=== PATIENT | male | born 1965 | race Caucasian/White ===

== ENCOUNTER 2018-05-26 13:06 | Emergency (ER) | payer OTHER ==
[2018-05-26 13:18] VITALS: TEMP 97.8
[2018-05-26] MEDS ORDERED: DIPH,PERTUS(ACELL)TETVAC-LF 0.5 ML VIAL IM ONE (13:42)
[2018-05-26] MEDS ORDERED: SODIUM CHLORIDE 0.9% 1,000 ML IV STA (13:42)
[2018-05-26] MEDS ORDERED: ceFAZolin IN SWFI 2 GM/20 ML SYRINGE IVP ONE (13:45)
[2018-05-26] MEDS ORDERED: MORPHINE SULFATE 4 MG/ML SYRINGE IVP STA (13:53)
--- NOTE | 2018-05-26 14:02 | XR ---
EXAMINATION TYPE: XR hand complete LT DATE OF EXAM: 05/26/2018 COMPARISON: NONE HISTORY: Pain TECHNIQUE: Three views are submitted. FINDINGS: Comminuted fractures involving the distal phalanx of the fourth and fifth digits. Previous surgery arango spected with metallic density overlying the base of the fourth proximal phalanx correlate clinically for confirmation. Arthropathy of the DIP joints noted. IMPRESSION: 1. Displaced fractures involving the distal phalanx fourth and fifth digit with soft tissue injury an d suspected laceration correlate clinically.
[2018-05-26] MEDS ORDERED: ONDANSETRON 4 MG/2 ML VIAL IVP STA (14:08)
--- NOTE | 2018-05-26 14:09 | ED ---
Wound/Laceration HPI - General Chief Complaint: Wound/Laceration Stated Complaint: Rt hand lac Time Seen by Provider: 05/26/18 13:21 Source: patient, RN notes reviewed, old records reviewed Mode of arrival: ambulatory Limitations: no limitations - History of Present Illness Initial Comments: Patient is a 52-year-old male presents emergency department today with left fifth and fourth ring finger injury. Patient reports that his fingers were caught into a log splitter. Patient states that he does have some flexion of the fingers. His tetanus is not up-to-date. He rarely goes to doctors for follow-up visits. Patient states that he has slight sensation over the distal fingertips. He reports that the nail of the fourth digit has been partially avulsed. - Related Data Previous Rx's Medication Instructions Recorded Cephalexin [Keflex] 500 mg PO Q6HR #40 cap 05/26/18 HYDROcodone/APAP 5-325MG [[place] 1 tab PO Q6HR PRN 3 Days #12 tab 05/26/18 5-325] Allergies Allergy/AdvReac Type Severity Reaction Status Date / Time No Known Allergies Allergy Verified 05/26/18 14:19 Review of Systems ROS Statement: Those systems with pertinent positive or pertinent negative responses have been documented in the HPI. ROS Other: All systems not noted in ROS Statement are negative. Past Medical History Past Medical History: No Reported History History of Any Multi-Drug Resistant Organisms: None Reported Past Surgical History: Orthopedic Surgery Additional Past Surgical History / Comment(s): HAND SURGERY Past Psychological History: No Psychological Hx Reported Smoking Status: Current every day smoker Past Alcohol Use History: None Reported Past Drug Use History: Marijuana General Exam - General Exam Comments Initial Comments: Patient's 52-year-old male. Patient appears in pain. Limitations: no limitations General appearance: alert, in no apparent distress Head exam: Present: atraumatic, normocephalic, normal inspection Eye exam: Present: normal appearance, PERRL, EOMI. Absent: scleral icterus, conjunctival injection, periorbital swelling ENT exam: Present: normal exam, mucous membranes moist Neck exam: Present: normal inspection. Absent: tenderness, meningismus, lymphadenopathy Respiratory exam: Present: normal lung sounds bilaterally. Absent: respiratory distress, wheezes, rales, rhonchi, stridor Cardiovascular Exam: Present: regular rate, normal rhythm, normal heart sounds. Absent: systolic murmur, diastolic murmur, rubs, gallop, clicks GI/Abdominal exam: Present: soft, normal bowel sounds. Absent: distended, tenderness, guarding, rebound, rigid Extremities exam: Present: normal inspection, full ROM, normal capillary refill. Absent: tenderness, pedal edema, joint swelling, calf tenderness Left Forearm Wrist exam: Present: normal inspection, full ROM Hand Wrist exam: Present: tenderness, swelling, laceration, deformity. Absent: normal inspection Vascular: Present: normal capillary refill Back exam: Present: normal inspection Neurological exam: Present: alert, oriented X3, CN II-XII intact Psychiatric exam: Present: normal affect, normal mood Skin exam: Present: warm, dry, intact, normal color. Absent: rash Course Vital Signs 05/26/18 13:14 Temperature 97.8 F Pulse Rate 66 Respiratory 16 Rate Blood Pressure 154/76 O2 Sat by Pulse 95 Oximetry Medical Decision Making - Radiology Data Radiology results: report reviewed Displaced fractures involving the distal phalanx of the fourth and fifth digit with soft tissue injury and suspected laceration correlate clinically. Disposition Clinical Impression: Open fracture of finger of left hand, Open fracture of tuft of distal phalanx of finger Disposition: HOME SELF-CARE Condition: Good Instructions (If sedation given, give patient instructions): Finger Laceration (ED), Finger Fracture (ED) Additional Instructions: Patient advised to follow-up tomorrow with orthopedic. Take antibiotics and use pain medicine as prescribed. Return to emergency department if any alarming signs or symptoms occur. Prescriptions: Cephalexin [Keflex] 500 mg PO Q6HR #40 cap HYDROcodone/APAP 5-325MG [[place] 5-325] 1 tab PO Q6HR PRN 3 Days #12 tab PRN Reason: Pain Is patient prescribed a controlled substance at d/c from ED?: Yes When asked, does pt state using other controlled substances?: Yes If prescribed controlled substance>3 days was MAPS reviewed?: Prescribed <3 Days If opioid is for acute pain is fill amount 7 days or less?: Yes If Rx opioid, was Start Talking consent form obtained?: Yes Referrals: None,Stated [Primary Care Provider] - 1-2 days Satnley Vogt MD [STAFF PHYSICIAN] - 1-2 days Salo Be DO [Medical Doctor] - 1-2 days Time of Disposition: 16:06
[2018-05-26] MEDS ORDERED: LIDOCAINE 1% INJ 10MG/ML (20 ML MDV) SQ ONE (14:46)
[2018-05-26] MEDS ORDERED: ACET/COD 300 MG/30 MG STARTER PACK 6 TAB BTL PO STA (16:12)
[2018-05-26 16:20] VITALS: BP 123/83; PULSE 60; RESP 14
== END 2018-05-26 16:20 | disposition home or self-care (01) ==
LOC: EC 13:06
DX: S62.635B Displaced fracture of distal phalanx of left ring finger, initial encounter for open fracture (principal); S62.637B Displaced fracture of distal phalanx of left little finger, initial encounter for open fracture; F17.200 Nicotine dependence, unspecified, uncomplicated; W31.89XA Contact with other specified machinery, initial encounter; Y92.89 Other specified places as the place of occurrence of the external cause; Z23 Encounter for immunization
CPT/HCPCS: 99283; 96374; 96375 ×2; 96361 ×2; 90471; 73130; 90715; J2270; J2405; J0690

== ENCOUNTER 2019-02-03 10:45 | Inpatient (IN) | payer OTHER ==
[2019-03-02 08:41] LABS: Basophils # (A) 0.1 k/uL (0-0.2); Basophils % (A) 1 %; Eosinophils # (A) 0.5 k/uL (0-0.7); Eosinophils % (A) 4 %; HCT 45.7 % (39.0-53.0); HGB 15.1 gm/dL (13.0-17.5); Lymphocytes # (A) 3.2 k/uL (1.0-4.8); Lymphocytes % (A) 28 %; MCH 30.5 pg (25.0-35.0); MCHC 32.9 g/dL (31.0-37.0); MCV 92.5 fL (80.0-100.0); Mean Platelet Volume 7.1; Monocytes # (A) 1.1 k/uL (0-1.0); Monocytes % (A) 9 %; Neutrophils # (A) 6.4 k/uL (1.3-7.7); Neutrophils % (A) 56 %; Platelet Count 332 k/uL (150-450); RBC 4.94 m/uL (4.30-5.90); RDW 14.2 % (11.5-15.5); WBC 11.5 k/uL (3.8-10.6)
[2019-03-02 08:50] LABS: Potassium 4.4 mmol/L (3.5-5.1)
[2019-03-02] MEDS ORDERED: ONDANSETRON 4 MG/2 ML VIAL IVP PRN (21:10)
[2019-03-03] MEDS ORDERED: metroNIDAZOLE-NS PMX 500 MG in SALINE 1 100ML.BAG IVPB ONE (05:00)
[2019-03-03] MEDS ORDERED: HEPARIN SODIUM,PORCINE 5,000 UNIT/ML 1 ML VIAL SQ ONE (05:00)
--- NOTE | 2019-03-03 07:54 | P.GSHP ---
History of Present Illness H&P Date: 03/03/19 Chief Complaint: History of colonic perforation This is a 53-year-old male who has previous history of colonic perforation. Patient had a traumatic perforation of his colon after being involved in a crush injury. Patient presents today for reversal of colostomy. Patient reversed surgery including possible anastomotic failure and subsequent colostomy. Past Medical History Past Medical History: Hyperlipidemia Additional Past Medical History / Comment(s): crush injury to abdomen 2 months ago resulting in "ruptured colon" per pt., had surgery & was in ICU @[facility] History of Any Multi-Drug Resistant Organisms: None Reported Past Surgical History: Bowel Resection, Orthopedic Surgery Additional Past Surgical History / Comment(s): HAND SURGERY, ORIF right ankle, bowel resection w/colostomy & splenectomy 2018 Past Anesthesia/Blood Transfusion Reactions: No Reported Reaction Smoking Status: Current every day smoker - Past Family History Brother(s) Family Medical History: Cancer Additional Family Medical History / Comment(s): colon Medications and Allergies Home Medications Medication Instructions Recorded Confirmed Type Atorvastatin [Lipitor] 40 mg PO HS 01/28/19 03/02/19 History Gabapentin [Neurontin] 600 mg PO HS 01/28/19 03/02/19 History hydrOXYzine HCL [Atarax] 50 mg PO HS PRN 01/28/19 03/02/19 History Allergies Allergy/AdvReac Type Severity Reaction Status Date / Time No Known Allergies Allergy Verified 03/02/19 07:54 Surgical - Exam - General well developed, well nourished, no distress - Eyes PERRL - ENT normal pinna - Neck no masses - Respiratory normal expansion - Cardiovascular Rhythm: regular - Abdomen Colostomy in left upper quadrant Abdomen: soft, non tender Results - Labs 03/02/19 08:26 03/02/19 08:26 Abnormal Lab Results - Last 24 Hours (Table) 03/02/19 Range/Units 08:26 WBC 11.5 H (3.8-10.6) k/uL Monocytes # 1.1 H (0-1.0) k/uL Diabetes panel 03/02/19 Range/Units 08:26 Sodium 138 (137-145) mmol/L Potassium 4.4 (3.5-5.1) mmol/L Chloride 104 (98-107) mmol/L Carbon Dioxide 28 (22-30) mmol/L Pituitary panel 03/02/19 Range/Units 08:26 Sodium 138 (137-145) mmol/L Potassium 4.4 (3.5-5.1) mmol/L Chloride 104 (98-107) mmol/L Carbon Dioxide 28 (22-30) mmol/L Adrenal panel 03/02/19 Range/Units 08:26 Sodium 138 (137-145) mmol/L Potassium 4.4 (3.5-5.1) mmol/L Chloride 104 (98-107) mmol/L Carbon Dioxide 28 (22-30) mmol/L Assessment and Plan Assessment: History of colonic perforation. We'll perform reversal of colostomy.
[2019-03-03] MEDS ORDERED: LIDOCAINE 1% (10MG/ML) FOR IV START INTRADERMA ONE (08:46)
[2019-03-03] MEDS: LACTATED RINGERS 1,000 ML IV SCH ×2 (08:46→20:46)
[2019-03-03] MEDS ORDERED: DEXAMETHASONE SOD PHOSPHATE 10 MG/ML 1 ML VIAL IV ONE (08:46)
[2019-03-03] MEDS ORDERED: ALVIMOPAN 12 MG CAPSULE PO ONE (09:05)
[2019-03-03] MEDS ORDERED: MELOXICAM 7.5 MG TAB PO ONE (09:09)
[2019-03-03] MEDS ORDERED: ACETAMINOPHEN IV (For NPO) 1,000 MG in EMPTY BAG 1 BAG IVPB STA (09:18)
[2019-03-03] MEDS ORDERED: LIDOCAINE 1% INJ 10MG/ML (20 ML MDV) ONE (09:32)
[2019-03-03] MEDS ORDERED: ROCURONIUM BROMIDE 10 MG/ML 5 ML VIAL IV ONE (09:32)
[2019-03-03] MEDS ORDERED: SUCCINYLCHOLINE CHLORIDE 100 MG/5 ML SYR IV ONE (09:32)
[2019-03-03] MEDS ORDERED: fentaNYL (PF) 50 MCG/ML 2 ML AMP ONE (09:32)
[2019-03-03] MEDS ORDERED: HYDROmorphone (PF) 1 MG/ML ONE (09:32)
[2019-03-03] MEDS ORDERED: MIDAZOLAM 2 MG/2 ML VIAL ONE (09:32)
[2019-03-03] MEDS ORDERED: PROPOFOL 10 MG/ML 20 ML VIAL IV ONE (09:32)
[2019-03-03] MEDS ORDERED: NEOSTIGMINE 1 MG/ML 10 ML VIAL ONE (09:32)
[2019-03-03] MEDS ORDERED: GLYCOPYRROLATE 0.2 MG/ML 2 ML VIAL ONE (09:32)
[2019-03-03] MEDS ORDERED: ONDANSETRON 4 MG/2 ML VIAL IVP PRN (11:42)
[2019-03-03] MEDS ORDERED: LACTATED RINGERS 1,000 ML IV ONE ×2 (11:42→13:00)
[2019-03-03] MEDS: HYDROmorphone 0.5 MG/0.5 ML SYRINGE IVP PRN ×7 (12:05→22:28)
[2019-03-03] MEDS ORDERED: diphenhydrAMINE 50 MG/ML 1 ML VIAL IVP ONE (12:39)
[2019-03-03 14:13] LABS: Basophils % (A) 0 %; Eosinophils % (A) 0 %; HCT 47.2 % (39.0-53.0); HGB 15.2 gm/dL (13.0-17.5); Lymphocytes # (A) 0.7 k/uL (1.0-4.8); Lymphocytes % (A) 3 %; MCH 30.4 pg (25.0-35.0); MCHC 32.2 g/dL (31.0-37.0); MCV 94.5 fL (80.0-100.0); Monocytes # (A) 0.9 k/uL (0-1.0); Monocytes % (A) 4 %; Neutrophils # (A) 21.2 k/uL (1.3-7.7); Neutrophils % (A) 92 %; Platelet Count 352 k/uL (150-450); RBC 4.99 m/uL (4.30-5.90); RDW 14.1 % (11.5-15.5); WBC 22.9 k/uL (3.8-10.6)
[2019-03-03 14:31] LABS: African American GFR (CKD) >90 (>60 ml/min/1.73 sqM); Anion Gap 7 mmol/L; Blood Urea Nitrogen 14 mg/dL (9-20); Calcium 9.4 mg/dL (8.4-10.2); Carbon Dioxide 24 mmol/L (22-30); Chloride 105 mmol/L (98-107); Glucose 123 mg/dL (74-99); Non-African American GFR(CKD) >90 (>60 ml/min/1.73 sqM); Potassium 4.7 mmol/L (3.5-5.1); Sodium 136 mmol/L (137-145)
[2019-03-03] MEDS: PIPERACILLIN-TAZOBACTAM 3.375 GM in SODIUM CHLORIDE 0.9% 100 ML IVPB SCH ×2 (15:58→23:32)
[2019-03-03] MEDS: HEPARIN SODIUM,PORCINE 5,000 UNIT/ML 1 ML VIAL SQ SCH ×2 (15:59→23:31)
[2019-03-03] MEDS: D5-0.45% NACL WITH KCL 20MEQ/L 1,000 ML IV SCH ×2 (15:59→23:31)
[2019-03-03] MEDS: FAMOTIDINE 20 MG/2 ML VIAL IV SCH (19:26)
[2019-03-03 23:00] LABS: ALT 23 U/L (21-72); AST 27 U/L (17-59); African American GFR (CKD) >90 (>60 ml/min/1.73 sqM); Albumin 3.8 g/dL (3.5-5.0); Alkaline Phosphatase 65 U/L (38-126); Anion Gap 8 mmol/L; Blood Urea Nitrogen 11 mg/dL (9-20); Calcium 9.4 mg/dL (8.4-10.2); Carbon Dioxide 24 mmol/L (22-30); Chloride 103 mmol/L (98-107); Glucose 158 mg/dL (74-99); Non-African American GFR(CKD) >90 (>60 ml/min/1.73 sqM); Potassium 5.1 mmol/L (3.5-5.1); Sodium 135 mmol/L (137-145); Total Bilirubin 0.9 mg/dL (0.2-1.3); Total Protein 6.6 g/dL (6.3-8.2)
[2019-03-04] MEDS: HYDROmorphone 0.5 MG/0.5 ML SYRINGE IVP PRN ×3 (01:28→07:10)
[2019-03-04] MEDS: D5-0.45% NACL WITH KCL 20MEQ/L 1,000 ML IV SCH ×2 (05:33→16:53)
--- NOTE | 2019-03-04 06:51 | CONS ---
CONSULTATION DATE OF SERVICE: 03/03/2019 REASON FOR CONSULTATION: Advice regarding hyperlipidemia and multiple medical issues requested by Dr. Moralez. HISTORY OF PRESENT ILLNESS: This [age] gentleman with a past medical history of hyperlipidemia, history of crush injury, abdomen, history of bowel resection, history of nicotine dependence, being followed by Dr. Ashley in the outpatient setting, underwent a colostomy reversal, extensive lysis of adhesions by Dr. Moralez. The patient had bowel resection previously. There is no history of fever, rigors or chills. No history of headache, loss of consciousness, chest pain, palpitations, hematochezia or melena at this time. PAST MEDICAL HISTORY: Hyperlipidemia, history of crush injury, history of colonic perforation, bowel resection. MEDICATIONS: Home medications are: 1. Atarax 50 mg q.h.s. p.r.n. 2. Neurontin 600 mg q.h.s. 3. Lipitor 40 mg q.h.s. ALLERGIES: None. FAMILY HISTORY: History of colon cancer in the family. SOCIAL HISTORY: History of smoking, continued ongoing. History of THC. REVIEW OF SYSTEMS: ENT: No diminished vision. No diminished hearing. CARDIOVASCULAR: No angina or palpitations. RESPIRATIONS: No cough or hemoptysis. GI as mentioned earlier. no dysuria or hematuria. NERVOUS SYSTEM: No numbness or weakness. ALLERGY/IMMUNOLOGY: No asthma or hayfever. MUSCULOSKELETAL as mentioned earlier. HEMATOLOGY/ONCOLOGY: No history of anemia. ENDOCRINE: No history of diabetes or hypothyroidism. CONSTITUTIONAL: As mentioned earlier. DERMATOLOGY: Negative. RHEUMATOLOGY: Negative. PSYCHIATRIC: As mentioned earlier. PHYSICAL EXAMINATION: Alert and oriented times three. Pulse 59, blood pressure 130/80, respiration 16, temp 97.2, pulse ox 94% on room air. HEENT: Conjunctivae normal. NECK: No JVD. CARDIOVASCULAR: S1, S2 normal. No S3, no S4. RESPIRATORY: Breath sounds diminished in the bases. No rhonchi. No crackles. ABDOMEN: Soft. Status post surgery. LEGS are no edema. No swelling. CENTRAL NERVOUS SYSTEM: No focal deficits. LABS: WBC 20.9. The sodium is 136 and glucose 123. ASSESSMENT: 1. Status post colostomy reversal as well as extensive lysis of adhesions. 2. Increased WBC possibly reactive. 3. Hyponatremia. 4. Increased random blood sugar. 5. Hyperlipidemia. 6. History of crush injury abdomen chronic perforation surgery and bowel resection. 7. History of splenectomy. 8. History of nicotine dependence continued ongoing. 9. History of THC. RECOMMENDATIONS AND DISCUSSION: In this 53-year-old gentleman who presented with multiple complex medical issues, recommend to continue current medications, management and symptomatic treatment. DVT prophylaxis. Incentive spirometry. Recommend repeat labs. Broad-spectrum antibiotics has been given. Otherwise, resume the home medication p.o. and further recommendations to follow. The patient may be asked to follow with Dr. Ashley closely after discharge. Thank you Dr. Moralez for letting us participate in the care of this patient. MMODL / IJN: [id number] /
[2019-03-04 07:31] LABS: Basophils % (A) 0 %; Eosinophils # (A) 0.1 k/uL (0-0.7); Eosinophils % (A) 0 %; HCT 46.3 % (39.0-53.0); HGB 15.1 gm/dL (13.0-17.5); Lymphocytes # (A) 2.1 k/uL (1.0-4.8); Lymphocytes % (A) 9 %; MCH 30.6 pg (25.0-35.0); MCHC 32.6 g/dL (31.0-37.0); MCV 93.9 fL (80.0-100.0); Mean Platelet Volume 8.6; Monocytes # (A) 2.5 k/uL (0-1.0); Monocytes % (A) 11 %; Neutrophils # (A) 18.4 k/uL (1.3-7.7); Neutrophils % (A) 79 %; Platelet Count 331 k/uL (150-450); RBC 4.93 m/uL (4.30-5.90); RDW 14.1 % (11.5-15.5); WBC 23.4 k/uL (3.8-10.6)
[2019-03-04] MEDS: PIPERACILLIN-TAZOBACTAM 3.375 GM in SODIUM CHLORIDE 0.9% 100 ML IVPB SCH ×3 (09:25→23:46)
[2019-03-04] MEDS: FAMOTIDINE 20 MG/2 ML VIAL IV SCH ×2 (09:26→21:24)
[2019-03-04] MEDS: ALVIMOPAN 12 MG CAPSULE PO SCH ×2 (09:26→21:30)
[2019-03-04] MEDS: HEPARIN SODIUM,PORCINE 5,000 UNIT/ML 1 ML VIAL SQ SCH ×2 (09:26→16:53)
[2019-03-04] MEDS: KETOROLAC 30 MG/ML 1 ML VIAL IVP PRN ×2 (09:27→21:35)
[2019-03-04] MEDS: HYDROmorphone 1 MG/ML 1 ML SYRINGE IVP PRN ×4 (10:30→23:57)
--- NOTE | 2019-03-04 11:34 | P.PN ---
Subjective Progress Note Date: 03/04/19 CHIEF COMPLAINT: History of colonic perforation HISTORY OF PRESENT ILLNESS: Patient is status post reversal of colostomy. Postop day #1. Patient reports significant abdominal pain this morning. He is tolerating clear liquid diet. He denies passing flatus. Vital signs are stable. He is afebrile. PHYSICAL EXAM: VITAL SIGNS: Reviewed. GENERAL: Well-developed in no acute distress. HEENT: No sclera icterus. Extraocular movements grossly intact. Moist buccal mucosa. Head is atraumatic, normocephalic. ABDOMEN: Soft. Nondistended. Appropriate surgical tenderness. NEUROLOGIC: Alert and oriented. Cranial nerves II through XII grossly intact. ASSESSMENT: 1. History of colonic perforation, status post reversal of colostomy PLAN: -Continue clear liquid diet. Await bowel function -Pain control. Increase Dilaudid to 1 mg every 3 hours as needed. Add IV Toradol -Incentive spirometer -Activity as tolerated Nurse practitioner note has been reviewed by physician. Signing provider agrees with the documented findings, assessment, and plan of care. Objective - Vital Signs Vital signs: Vital Signs Temp 98.0 F 03/04/19 06:49 Pulse 67 03/04/19 08:45 Resp 16 03/04/19 08:45 BP 162/89 03/04/19 06:49 Pulse Ox 93 L 03/04/19 06:49 Intake & Output 03/03/19 03/04/19 03/04/19 18:59 06:59 18:59 Intake Total 2300 1800 320 Output Total 285 2900 70 Balance 2014 250 Weight 109.769 kg Intake: IV 2300 Intake, IV Titration 1600 Amount D5-0.45% NaCl with KCl 1500 20Meq/l 1,000 ml @ 125 mls/hr IV .Q8H CEHLITA Rx#: [id number] Piperacillin-Tazobactam 3 100 .375 gm In Sodium Chloride 0.9% 100 ml @ 25 mls/hr IVPB Q8HR CHELITA Rx# :[id number] Oral 200 320 Output: Urine 185 2900 70 Uretheral (Richard) 2900 Estimated Blood Loss 100 Other: Voiding Method Indwelling Catheter Indwelling Catheter Indwelling Catheter - Labs CBC & Chem 7: 03/04/19 06:53 03/03/19 22:07 Labs: Abnormal Lab Results - Last 24 Hours (Table) 03/03/19 03/03/19 03/03/19 Range/Units 13:21 13:21 22:07 WBC 22.9 H (3.8-10.6) k/uL Neutrophils # 21.2 H (1.3-7.7) k/uL Lymphocytes # 0.7 L (1.0-4.8) k/uL Monocytes # (0-1.0) k/uL Sodium 136 L 135 L (137-145) mmol/L Glucose 123 H 158 H (74-99) mg/dL 03/04/19 Range/Units 06:53 WBC 23.4 H (3.8-10.6) k/uL Neutrophils # 18.4 H (1.3-7.7) k/uL Lymphocytes # (1.0-4.8) k/uL Monocytes # 2.5 H (0-1.0) k/uL Sodium (137-145) mmol/L Glucose (74-99) mg/dL
[2019-03-04] MEDS: IPRATROPIUM-ALBUTEROL 3 ML NEB INHALATION SCH ×2 (14:58→20:08)
--- NOTE | 2019-03-04 15:17 | PN ---
PROGRESS NOTE DATE OF SERVICE: 03/04/2019 This 53-year-old gentleman who was admitted with colostomy reversal as well as extensive lysis of adhesions is being closely monitored. No chest pain. No palpitations. No fever. PHYSICAL EXAMINATION: Alert, oriented x3. Pulse 67, blood pressure 162/89, respiration 16, temperature 98 degrees, pulse ox 93% on room air. HEENT: Conjunctivae normal. NECK: No jugular venous distention. CARDIOVASCULAR SYSTEM: S1, S2 muffled. RESPIRATORY SYSTEM: Breath sounds diminished at the bases. No rhonchi. No crackles. ABDOMEN: Soft, non-tender. Status post surgery. LEGS: No edema. No swelling. NERVOUS SYSTEM: No focal deficit. LABS: WBC 23.2, hemoglobin 15.1. ASSESSMENT: 1. Status post colostomy reversal as well as extensive adhesiolysis. 2. Increased white count. 3. Hyponatremia. 4. Increased random blood sugar. 5. Hyperlipidemia. 6. History of crush injury abdomen with colonic perforation and bowel resection. 7. History of splenectomy. 8. History of nicotine dependence, continued ongoing. 9. History of tetrahydrocannabinol. RECOMMENDATIONS AND DISCUSSION: I recommend to continue current medications, continue with the monitoring, symptomatic treatment. Otherwise at this time I would recommend continuing with empiric antibiotics. DVT prophylaxis. Closely follow with Surgery. Proton pump inhibitors. Broad-spectrum IV antibiotics. Further recommendations to follow. MMODL / IJN: [id number] /
[2019-03-04] MEDS: PANTOPRAZOLE 40 MG TABLET PO SCH (16:53)
[2019-03-04] MEDS: GABAPENTIN 300 MG CAP PO SCH (21:25)
[2019-03-04] MEDS: ATORVASTATIN 40 MG TAB PO SCH (21:26)
[2019-03-05] MEDS: HEPARIN SODIUM,PORCINE 5,000 UNIT/ML 1 ML VIAL SQ SCH ×4 (00:22→23:59)
[2019-03-05] MEDS: D5-0.45% NACL WITH KCL 20MEQ/L 1,000 ML IV SCH ×4 (00:44→21:04)
[2019-03-05] MEDS: HYDROmorphone 1 MG/ML 1 ML SYRINGE IVP PRN ×4 (04:26→17:38)
[2019-03-05] MEDS: KETOROLAC 30 MG/ML 1 ML VIAL IVP PRN ×4 (05:09→23:58)
[2019-03-05] MEDS: IPRATROPIUM-ALBUTEROL 3 ML NEB INHALATION PRN (05:21)
[2019-03-05] MEDS: LACTATED RINGERS 1,000 ML IV SCH ×2 (07:02→21:04)
[2019-03-05] MEDS: IPRATROPIUM-ALBUTEROL 3 ML NEB INHALATION SCH ×4 (07:42→21:21)
[2019-03-05] MEDS: FAMOTIDINE 20 MG/2 ML VIAL IV SCH ×2 (08:29→21:04)
[2019-03-05] MEDS: PANTOPRAZOLE 40 MG TABLET PO SCH (08:29)
[2019-03-05] MEDS: PIPERACILLIN-TAZOBACTAM 3.375 GM in SODIUM CHLORIDE 0.9% 100 ML IVPB SCH ×3 (08:29→23:59)
[2019-03-05] MEDS: ALVIMOPAN 12 MG CAPSULE PO SCH (08:29)
--- NOTE | 2019-03-05 14:07 | P.PN ---
Subjective Progress Note Date: 03/05/19 CHIEF COMPLAINT: Colostomy reversal HISTORY OF PRESENT ILLNESS: The patient is a 53-year-old male status post colostomy reversal. He started to pass flatus this afternoon. No nausea or vomiting. He is eager to go home. ROS: No reports of nausea and vomiting. No fevers or chills. No new chest pa in. No productive sputum PHYSICAL EXAM: VITAL SIGNS: Reviewed CONSTITUTIONAL: Well developed and in no acute distress. EYES: Conjuctivae without sclera icterus. Extraocular movements grossly intact. HEAD, EARS, NOSE, THROAT: Moist buccal mucosa. Head is atraumatic, normocephalic. Hears conversational speech. No nasal drainage. Poor dentition. RESPIRATORY: Non-labored respirations and equal bilateral excursions. CARDIOVASCULAR: Palpable 2+ radial pulses. ABDOMEN: Soft. No peritonitis. Midline dressing colostomy site clean dry and intact. MUSCULOSKELETAL: No gross deformity of the lower extremities noted. No clubbing. No cyanosis. SKIN: Good skin turgor. Well perfused. NEUROLOGIC: Cranial nerves I through XII grossly intact. No focal or lateralizing signs. PSYCH: Appropriate affect. Alert and oriented to person, place and time. CLINICAL LABS: White blood cell count elevated over 20,000+ ASSESSMENT: 1. Status post colostomy reversal PLAN: 1. He just started passing flatus. We'll hold advancing diet this time. 2. Monitor with blood cell count with possible antibiotic adjustment Objective - Vital Signs Vital signs: Vital Signs Temp 97.3 F L 03/05/19 07:00 Pulse 65 03/05/19 11:45 Resp 16 03/05/19 11:45 BP 122/77 03/05/19 07:00 Pulse Ox 93 L 03/05/19 07:00 Intake & Output 03/04/19 03/05/19 03/05/19 18:59 06:59 18:59 Intake Total 820 475 Output Total 1670 4775 Balance -850 -4300 Intake: Intake, IV Titration 475 Amount D5-0.45% NaCl with KCl 375 20Meq/l 1,000 ml @ 125 mls/hr IV .Q8H CHELITA Rx#: [id number] Piperacillin-Tazobactam 3 100 .375 gm In Sodium Chloride 0.9% 100 ml @ 25 mls/hr IVPB Q8HR CHELITA Rx# :[id number] Oral 820 Output: Urine 5130 7673 Other: Voiding Method Indwelling Catheter Indwelling Catheter Indwelling Catheter # Voids 3 - Labs CBC & Chem 7: 03/04/19 06:53 03/03/19 22:07 Assessment and Plan (1) History of colostomy reversal Current Visit: Yes Status: Acute Code(s): Z98.890 - OTHER SPECIFIED POSTPROCEDURAL STATES SNOMED Code(s): 394503561
--- NOTE | 2019-03-05 14:49 | XR ---
EXAMINATION TYPE: XR chest 2V DATE OF EXAM: 03/05/2019 COMPARISON: NONE TECHNIQUE: PA and lateral views submitted. HISTORY: Shortness of breath FINDINGS: Heart size is mildly prominent and there is hypertrophic and degenerative change of the spine. On the lateral view there is increased density in the left lower lobe perihilar region. By basilar infiltra jose armando and mild interstitial prominence. No pneumothorax. IMPRESSION: 1. Bibasilar infiltrates and left upper lobe atelectasis. Interstitial pneumonitis or early venous co ngestion in the differential diagnosis correlate clinically.
--- NOTE | 2019-03-05 20:44 | PN ---
PROGRESS NOTE DATE OF SERVICE: 03/05/2019 This 53-year-old gentleman who was admitted after colostomy reversal is being closely monitored. No chest pain. No palpitations. No fever. The white count is elevated. The chest x-ray showed significant atelectasis. EXAM: Alert and oriented x3. The pulse is 72. Blood pressure 123/67, respiration 19, temperature 98 degrees, pulse ox 97% on room air. HEENT: Conjunctivae normal. Oral mucosa moist. NECK: No jugular venous distention. No lymph node enlargement. CARDIOVASCULAR: S1, S2. RESPIRATORY: Diminished breath sounds at the bases. A few scattered rhonchi. ABDOMEN: Soft, status post surgery. LEGS: No swelling. NERVOUS SYSTEM: No focal deficits. LABS: WBC 23.4, sodium 135. PAST MEDICAL HISTORY: Reviewed. REVIEW OF SYSTEMS: CARDIOVASCULAR SYSTEM: No angina. RESPIRATORY: As mentioned earlier. GI: As mentioned earlier. : No dysuria or retention. NERVOUS SYSTEM: No numbness or weakness. CURRENT MEDICATIONS: 1. DuoNeb q.i.d. and p.r.n. 2. Lipitor 40 mg q.h.s. 3. Pepcid 20 mg IV b.i.d. 4. Neurontin. 5. Heparin subcu b.i.d. 6. Dilaudid. 7. Zofran. 8. Protonix. 9. Zosyn IV. X-rays are reviewed personally by me. ASSESSMENT: 1. Status post colostomy reversal as well as extensive adhesion lysis. 2. Possible chronic obstructive pulmonary disease acute exacerbation with acute bronchitis. 3. Bilateral atelectasis. 4. Increased WBC. 5. Hyponatremia. 6. Increased random blood sugar. 7. Hyperlipidemia. 8. History of crush injury abdomen with chronic perforation, bowel obstruction previously. 9. History of splenectomy. 10.History of nicotine dependence, continued, ongoing. 11.History of THC. RECOMMENDATIONS AND DISCUSSION: Recommend to continue current management, continue symptomatic treatment. Will optimize bronchodilator treatment. The patient is currently on DuoNeb q.i.d. and p.r.n. I would recommend add Symbicort also. Otherwise, empiric antibiotics initiated. Continue with current medications. Repeat labs also have been ordered. We will continue to monitor. Further recommendations to follow. MMODL / IJN: [id number] /
[2019-03-05] MEDS: HYDROmorphone 0.5 MG/0.5 ML SYRINGE IVP PRN (21:03)
[2019-03-05] MEDS: GABAPENTIN 300 MG CAP PO SCH (21:04)
[2019-03-05] MEDS: ATORVASTATIN 40 MG TAB PO SCH (21:04)
[2019-03-05] MEDS: SYMBICORT 160-4.5 MCG INHALER INHALATION SCH (21:25)
[2019-03-05] MEDS ORDERED: MELATONIN 5 MG TABLET PO PRN (23:42)
[2019-03-06] MEDS: HYDROmorphone 0.5 MG/0.5 ML SYRINGE IVP PRN ×2 (03:28→06:37)
[2019-03-06] MEDS: D5-0.45% NACL WITH KCL 20MEQ/L 1,000 ML IV SCH (05:49)
[2019-03-06] MEDS: KETOROLAC 30 MG/ML 1 ML VIAL IVP PRN ×2 (06:26→12:43)
[2019-03-06] MEDS: METOCLOPRAMIDE 5 MG/ML 2 ML VIAL IVP PRN (06:37)
[2019-03-06 07:33] LABS: Basophils # (A) 0.1 k/uL (0-0.2); Basophils % (A) 0 %; Eosinophils # (A) 0.7 k/uL (0-0.7); Eosinophils % (A) 5 %; HCT 41.6 % (39.0-53.0); HGB 13.6 gm/dL (13.0-17.5); Lymphocytes # (A) 2.3 k/uL (1.0-4.8); Lymphocytes % (A) 16 %; MCH 31.1 pg (25.0-35.0); MCHC 32.6 g/dL (31.0-37.0); MCV 95.4 fL (80.0-100.0); Mean Platelet Volume 8.6; Monocytes # (A) 0.9 k/uL (0-1.0); Monocytes % (A) 6 %; Neutrophils # (A) 9.8 k/uL (1.3-7.7); Neutrophils % (A) 70 %; Platelet Count 290 k/uL (150-450); RBC 4.37 m/uL (4.30-5.90); RDW 14.1 % (11.5-15.5); WBC 13.9 k/uL (3.8-10.6)
[2019-03-06 07:40] LABS: African American GFR (CKD) >90 (>60 ml/min/1.73 sqM); Anion Gap 5 mmol/L; Blood Urea Nitrogen 5 mg/dL (9-20); Calcium 9.4 mg/dL (8.4-10.2); Carbon Dioxide 28 mmol/L (22-30); Chloride 106 mmol/L (98-107); Glucose 98 mg/dL (74-99); Non-African American GFR(CKD) >90 (>60 ml/min/1.73 sqM); Potassium 4.3 mmol/L (3.5-5.1); Sodium 139 mmol/L (137-145)
[2019-03-06] MEDS: IPRATROPIUM-ALBUTEROL 3 ML NEB INHALATION SCH ×4 (08:15→20:00)
[2019-03-06] MEDS: SYMBICORT 160-4.5 MCG INHALER INHALATION SCH ×2 (08:15→20:00)
[2019-03-06] MEDS: PANTOPRAZOLE 40 MG TABLET PO SCH (08:35)
[2019-03-06] MEDS: HYDROmorphone 1 MG/ML 1 ML SYRINGE IVP PRN ×5 (08:35→17:38)
[2019-03-06] MEDS: FAMOTIDINE 20 MG/2 ML VIAL IV SCH ×2 (08:35→21:25)
[2019-03-06] MEDS: HEPARIN SODIUM,PORCINE 5,000 UNIT/ML 1 ML VIAL SQ SCH ×3 (08:35→22:54)
[2019-03-06] MEDS: PIPERACILLIN-TAZOBACTAM 3.375 GM in SODIUM CHLORIDE 0.9% 100 ML IVPB SCH ×3 (08:40→22:54)
[2019-03-06] MEDS: ALPRAZolam 1 MG TAB PO PRN (10:06)
[2019-03-06] MEDS ORDERED: HYDROmorphone 1 MG/ML 1 ML SYRINGE IVP ONE ×4 (10:10→22:27)
--- NOTE | 2019-03-06 12:44 | XR ---
EXAMINATION TYPE: XR chest 1V portable DATE OF EXAM: 03/06/2019 HISTORY: R/O PNA. REFERENCE: Previous study dated 03/05/2019. FINDINGS: The study is quite lordotic. There appears to be air under both hemidiaphragms. The heart i s mildly enlarged. Lungs are clear. I could not exclude a small right effusion. IMPRESSION: LARGE AMOUNT OF FREE AIR UNDER BOTH HEMIDIAPHRAGMS. THIS REPORT WAS CALLED TO WALDO MARLEY ON 4 S. AT THE TIME OF REPORTING.
--- NOTE | 2019-03-06 12:46 | XR ---
EXAMINATION TYPE: Abdominal series , 2 VIEWS DATE OF EXAM ORDERED: 03/06/2019 HISTORY: abdominal distension. COMPARISON: None. FINDINGS: Lung bases are clear. Within the abdomen, the abdominal gas pattern is nonspecific with nondilated loops of large and small bowel throughout the abdomen. I do not see evidence of obstruction or free air. No unusual calcifica tions are seen. Metallic skin sutures are present on the left. IMPRESSION: NONSPECIFIC ABDOMINAL PICTURE. FOLLOW-UP CLINICALLY INDICATED WOULD BE SUGGESTED.
[2019-03-06] MEDS ORDERED: IOPAMIDOL CONTRAST (ORAL USE) VIAL PO PRN (12:57)
[2019-03-06] MEDS: IOPAMIDOL CONTRAST (ORAL USE) VIAL PO PRN ×2 (13:16→14:18)
--- NOTE | 2019-03-06 13:18 | P.PN ---
Subjective Progress Note Date: 03/06/19 CHIEF COMPLAINT: Colostomy reversal HISTORY OF PRESENT ILLNESS: The patient is a 53-year-old male status post colostomy reversal. He started to pass flatus yesterday and then he started developed increased abdominal pain this morning. Per his recollection, this morning he had severe acute onset abdominal pain. His family is at bedside. He is uncomfortable. Reports feeling more distended. ROS: No fevers or chills. No productive sputum PHYSICAL EXAM: VITAL SIGNS: Reviewed CONSTITUTIONAL: Well developed and in mild distress. EYES: Conjuctivae without sclera icterus. Extraocular movements grossly intact. HEAD, EARS, NOSE, THROAT: Moist buccal mucosa. Head is atraumatic, normocephali c. Hears conversational speech. No nasal drainage. Poor dentition. RESPIRATORY: Non-labored respirations and equal bilateral excursions. CARDIOVASCULAR: Palpable 2+ radial pulses. ABDOMEN: Has peritonitis and is distended, new from prior assessment. MUSCULOSKELETAL: No gross deformity of the lower extremities noted. No clubbing. No cyanosis. SKIN: Good skin turgor. Well perfused. NEUROLOGIC: Cranial nerves I through XII grossly intact. No focal or lateralizing signs. PSYCH: Appropriate affect. Alert and oriented to person, place and time. CLINICAL LABS: White blood cell count elevated over 23,000+ now down to 13,000+ STUDIES: Chest x-ray independently reviewed demonstrating new bilateral free air underneath his diaphragm, moderate. REPORT: Chest x-ray from yesterday confirmed bilateral atelectasis without free air ASSESSMENT: 1. Status post colostomy reversal 2. New pneumoperitoneum PLAN: 1. I personally contacted admitting provider regarding new clinical change and diagnostic studies. 2. Patient and family made aware will need surgical intervention for new pneumoperitoneum Objective - Vital Signs Vital signs: Vital Signs Temp 97.5 F L 03/06/19 07:00 Pulse 70 03/06/19 11:53 Resp 20 03/06/19 07:00 BP 169/80 03/06/19 07:00 Pulse Ox 95 03/06/19 07:00 Intake & Output 03/05/19 03/06/19 03/06/19 18:59 06:59 18:59 Intake Total 810 Output Total 1600 1850 Balance -1600 -1040 Intake: Intake, IV Titration 560 Amount D5-0.45% NaCl with KCl 560 20Meq/l 1,000 ml @ 50 mls /hr IV .Q20H [facility] Rx#: [id number] Oral 250 Output: Urine 1600 1850 Other: Voiding Method Indwelling Catheter Indwelling Catheter Indwelling Catheter # Voids 3 1 - Labs CBC & Chem 7: 03/06/19 06:55 03/06/19 06:55 Labs: Abnormal Lab Results - Last 24 Hours (Table) 03/06/19 03/06/19 Range/Units 06:55 06:55 WBC 13.9 H (3.8-10.6) k/uL Neutrophils # 9.8 H (1.3-7.7) k/uL BUN 5 L (9-20) mg/dL Assessment and Plan (1) History of colostomy reversal Current Visit: Yes Status: Acute Code(s): Z98.890 - OTHER SPECIFIED POSTPROCEDURAL STATES SNOMED Code(s): 532676897
[2019-03-06] MEDS: LACTATED RINGERS 1,000 ML IV SCH ×3 (13:19→21:25)
--- NOTE | 2019-03-06 17:01 | CT ---
EXAMINATION TYPE: CT abdomen pelvis w con DATE OF EXAM: 03/06/2019 COMPARISON: Abdominal x-ray same day. HISTORY: Abdominal pain, Recent colostomy reversal CT DLP: 2295.7 mGycm Automated exposure control for dose reduction was used. TECHNIQUE: Helical acquisition of images was performed from the lung bases through the pelvis. CONTRAST: Performed with Oral Contrast and with IV Contrast, patient injected with 100 mL of Isovue 300. FINDINGS: Lung bases demonstrate bibasilar segmental atelectasis. The heart is not enlarged. The liver and pancreas are within normal limits. The spleen is not visualized. There are bilateral ad renal nodules, right measuring 1.8 cm and largest on the left (2 are present) measuring 1.9 cm. No ca lcified gallstones. Symmetric renal enhancement without hydronephrosis. Solid upper pole left renal mass with both endoph ytic and exophytic components measures 2.8 x 2.7 cm. There are additional bilateral fluid density teto al lesions which likely represent cysts. Decompressed urinary bladder with Richard catheter in situ; in travesical air is likely iatrogenic. Coarse prostatic calcifications. There is free intraperitoneal air and free fluid. Oral contrast is present within the stomach and pro ximal jejunal loops however there is no ileal or colonic opacification. Suture material is noted at t he junction of the descending and sigmoid colon. No findings of bowel obstruction. There is gaseous d istention of small bowel loops. Aortoiliac vascular calcifications without aneurysm. Scattered mesenteric lymph nodes are likely reac tive. The abdominal wall is intact. Midline surgical mark are noted along the dermis. Nonspecific subcut aneous fat stranding at the site of left mid abdominal colostomy is likely postsurgical. No aggressive osseous lesion. IMPRESSION: 1. Postsurgical changes are noted in the abdomen. There is free intraperitoneal air and fluid, correl ation with date of surgery is recommended as this could be a normal postoperative finding or possibly sequela of anastomotic leak or perforated viscus. 2. Solid left renal mass is suspicious for malignancy. 3. Bilateral adrenal nodules are nonspecific and MRI abdomen with intravenous contrast is recommended upon resolution of acute symptoms. Findings and recommendations were called to Dr. Franck Moralez by Dr. Mica Martin at 4:55 PM on 05/07/2018.
[2019-03-06] MEDS ORDERED: ROCURONIUM BROMIDE 10 MG/ML 5 ML VIAL IV ONE (19:02)
[2019-03-06] MEDS ORDERED: NEOSTIGMINE 1 MG/ML 10 ML VIAL ONE (19:02)
[2019-03-06] MEDS ORDERED: MIDAZOLAM 2 MG/2 ML VIAL ONE (19:02)
[2019-03-06] MEDS ORDERED: GLYCOPYRROLATE 0.2 MG/ML 2 ML VIAL ONE (19:02)
[2019-03-06] MEDS ORDERED: HYDROmorphone (PF) 1 MG/ML ONE (19:02)
[2019-03-06] MEDS ORDERED: LIDOCAINE 1% INJ 10MG/ML (20 ML MDV) ONE (19:02)
[2019-03-06] MEDS ORDERED: SUCCINYLCHOLINE CHLORIDE 100 MG/5 ML SYR IV ONE (19:02)
[2019-03-06] MEDS ORDERED: fentaNYL (PF) 50 MCG/ML 2 ML AMP ONE (19:02)
[2019-03-06] MEDS ORDERED: PROPOFOL 10 MG/ML 20 ML VIAL IV ONE (19:02)
[2019-03-06] MEDS ORDERED: PHENYLEPHRINE-0.9% NACL SYG 1 MG/10 ML SYRINGE ONE (19:02)
[2019-03-06] MEDS ORDERED: KETAMINE 10 MG/ML 20 ML VIAL ONE (19:02)
[2019-03-06] MEDS ORDERED: SODIUM CHLORIDE 0.9% 500 ML 500 ML IV ONE (19:13)
[2019-03-06] MEDS ORDERED: LACTATED RINGERS 1,000 ML IV ONE ×4 (19:31→21:48)
--- NOTE | 2019-03-06 19:58 | PN ---
PROGRESS NOTE DATE OF SERVICE: 03/06/2019 This 53-year-old gentleman who was admitted after colostomy reversal, is being closely monitored. The patient has some abdominal distention today. The abdominal x-ray was ordered which showed nonspecific abdominal picture and CT scan of the abdomen was ordered by surgery which showed postsurgical changes. Solid left renal mass as well as is also suspected. The patient is being closely monitored. PAST MEDICAL HISTORY: Reviewed. REVIEW OF SYSTEMS: Cardiovascular system: No angina or palpitations, otherwise, as mentioned earlier. RESPIRATORY: As mentioned earlier. GI: As mentioned earlier. no dysuria or hematuria. CENTRAL NERVOUS SYSTEM: No numbness or weakness. CURRENT MEDICATIONS: 1. DuoNeb q.i.d. and p.r.n. 2. Xanax 1 mg. 3. Lipitor. 4. Symbicort 160/4.5 two puffs b.i.d. 5. Pepcid 20 mg IV b.i.d. 6. Neurontin. 7. Heparin 5000 subcu q.8h. 8. Dilaudid. 9. Toradol. 10.Melatonin. 11.Zofran. 12.Protonix. 13.Zosyn 3.375 IV q.8. PHYSICAL EXAMINATION: Patient is alert, oriented x3. Pulse is 108. Blood pressure 124/76, respiration 18, temperature 97.4, pulse ox 93 percent on room air. HEENT is conjunctivae normal. NECK: No JVD. CARDIOVASCULAR: S1, S2 muffled. RESPIRATIONS: Breath sounds diminished in the bases. Scattered rhonchi and crackles. ABDOMEN: Soft. Mild diffuse distention present, status post surgery. Bowel sounds diminished. No guarding. No rigidity. LEGS: No edema. No swelling. NERVOUS SYSTEM: Higher functions as mentioned earlier. Moves all 4 limbs. No focal deficits. Lymphatics: No lymph nodes palpable in the neck, axillae or groin. SKIN: No ulcer, rash, bleeding. JOINTS: No active deforming arthropathy. LAB STUDIES: WBC 13.2, hemoglobin 13.6 and BUN is 5 and cultures are negative so far. The CT scan abdomen, and abdominal x-ray noted. Chest x-ray personally reviewed by me showed evidence of bilateral atelectasis, minimal fluid overload too. ASSESSMENT: 1. Status post colostomy reversal as well as extensive adhesiolysis. 2. Postoperative abdominal distention. 3. Chronic obstructive pulmonary disease exacerbation acute bronchitis. 4. Bilateral atelectasis. 5. Increased WBC. 6. Hyponatremia. 7. Increased random blood sugar. 8. Hyperlipidemia. 9. History of crush injury abdomen with colonic perforation, bowel bowel resection previously. 10.History of splenectomy. 11.History of nicotine dependence, continued, ongoing. 12.History of THC. RECOMMENDATIONS AND DISCUSSION: Recommend to continue current medications, continue symptomatic treatment. Otherwise, I would recommend continue the bronchodilators. Incentive spirometry. Ensure oxygenation. Closely follow with surgery. Surgery is reviewing the plain x-ray abdomen, and abdominal CT scan. Otherwise, continue the rest of medications. DVT prophylaxis. Patient is on broad-spectrum IV antibiotics also. Also recommend a set of cultures. Otherwise, we will continue to monitor. Further recommendations to follow. DVT prophylaxis. Repeat labs in the morning. MMODL / IJN: [id number] / MTDD
--- NOTE | 2019-03-06 21:08 | P.PN ---
Progress Note - Text Progress Note Date: 03/06/19 The patient developed acute abdominal pain early this morning. It was a sudden change in this clinical presentation. Patient had a CAT scan which shows evidence of a large amount of pneumoperitoneum. Patient undergo exploratory laparotomy today.
--- NOTE | 2019-03-06 21:12 | P.OP ---
Date of Procedure: 03/06/19 Preoperative Diagnosis: Perforated viscus Postoperative Diagnosis: Anastomotic leak Procedure(s) Performed: Exploratory laparotomy Washout of peritoneal cavity Repair of anastomotic leak Diverting ileostomy Lysis of adhesions Anesthesia: YESENIA Surgeon: Franck Moralez Estimated Blood Loss (ml): 100 Pathology: other (Ileum) Condition: stable Disposition: PACU Description of Procedure: Patient's placed on the operating table in the supine position. He received general anesthesia. His mark removed. The subcutaneous tissues were spread. The fascial stitch was found. This was cut. The fascia was then opened. The Bookwalter this wound. The abdomen was retracted. There is a little large amount of bilious fluid. The abdomen was explored. And the colon anastomosis was visualized. The colon had a [id number] functional end-to-end staple anastomosis. There appeared to be a leak along the TA staple line. The TA staple line was then oversewn with 3-0 GI silk suture. At this point the small bowel was run. Extensive is of adhesions performed. It was decided perform an everting ileostomy. The terminal ileum was then transected with a GI stapler. And then a suitable spot for ileostomy takedown. The ileostomy was brought through the right lower quadrant. The abdomen was irrigated with 6 L of normal saline. The fascia was then closed with looped #1 PDS suture. 2 sutures used to close the fascia. The skin was closed with mark. Several openings were left for Telfa jessy. The ileostomy then matured with 3-0 GI silk suture. Patient top she will was sent to recovery in stable condition.
[2019-03-06] MEDS ORDERED: ONDANSETRON 4 MG/2 ML VIAL IVP ONE (21:20)
[2019-03-06] MEDS: ATORVASTATIN 40 MG TAB PO SCH (21:25)
[2019-03-06] MEDS: PANTOPRAZOLE 40 MG/10 ML VIAL IVP SCH (22:05)
[2019-03-06] MEDS: GABAPENTIN 300 MG CAP PO SCH (22:05)
[2019-03-07] MEDS: METOCLOPRAMIDE 5 MG/ML 2 ML VIAL IVP PRN (01:46)
[2019-03-07] MEDS: HYDROmorphone 1 MG/ML 1 ML SYRINGE IVP PRN ×8 (01:46→23:29)
[2019-03-07] MEDS: D5-0.45% NACL WITH KCL 20MEQ/L 1,000 ML IV SCH (01:46)
[2019-03-07] MEDS: KETOROLAC 30 MG/ML 1 ML VIAL IVP PRN ×4 (05:11→23:29)
[2019-03-07 06:55] LABS: HCT 46.8 % (39.0-53.0); HGB 15.1 gm/dL (13.0-17.5); MCH 30.1 pg (25.0-35.0); MCHC 32.3 g/dL (31.0-37.0); MCV 93.2 fL (80.0-100.0); Mean Platelet Volume 7.8; Platelet Count 346 k/uL (150-450); RBC 5.02 m/uL (4.30-5.90); RDW 14.2 % (11.5-15.5); WBC 20.5 k/uL (3.8-10.6)
[2019-03-07 07:05] LABS: Calcium 8.4 mg/dL (8.4-10.2); Potassium 5.2 mmol/L (3.5-5.1)
[2019-03-07 07:37] LABS: Band Neutrophils % 38 %; Eosinophils # (M) 0.21 k/uL (0-0.7); Lymphocytes # (M) 1.23 k/uL (1.0-4.8); Monocytes # (M) 1.03 k/uL (0-1.0); Neutrophils % (M) 51 %; Nucleated Red Blood Cells 0 /100 WBC (0-0); Total Cells Counted 200
[2019-03-07 07:39] LABS: Anisocytosis (M) Present; Poikilocytosis (M) Present; Toxic Granulation Present
[2019-03-07] MEDS: SYMBICORT 160-4.5 MCG INHALER INHALATION SCH ×2 (08:36→20:53)
[2019-03-07] MEDS: IPRATROPIUM-ALBUTEROL 3 ML NEB INHALATION SCH ×4 (08:36→20:53)
[2019-03-07] MEDS: HYDROmorphone 0.5 MG/0.5 ML SYRINGE IVP PRN (08:38)
[2019-03-07] MEDS: HEPARIN SODIUM,PORCINE 5,000 UNIT/ML 1 ML VIAL SQ SCH ×4 (08:42→23:31)
[2019-03-07] MEDS: FAMOTIDINE 20 MG/2 ML VIAL IV SCH (08:42)
[2019-03-07] MEDS: PIPERACILLIN-TAZOBACTAM 3.375 GM in SODIUM CHLORIDE 0.9% 100 ML IVPB SCH ×3 (08:42→23:30)
[2019-03-07] MEDS: PANTOPRAZOLE 40 MG/10 ML VIAL IVP SCH ×2 (08:42→21:02)
[2019-03-07] MEDS ORDERED: SODIUM CHLORIDE 0.9% 1,000 ML IV ONE (09:09)
[2019-03-07] MEDS: ALPRAZolam 1 MG TAB PO PRN (11:02)
[2019-03-07] MEDS: DEXTROSE 5%-0.45% NACL 1,000 ML IV SCH ×3 (11:04→23:30)
--- NOTE | 2019-03-07 11:48 | P.PN ---
Subjective Progress Note Date: 03/07/19 CHIEF COMPLAINT: History of colonic perforation HISTORY OF PRESENT ILLNESS: Patient is status post reversal of colostomy performed on 03/03/2019. Patient is also status post exploratory laparotomy, washout of peritoneal cavity, repair of anastomotic leak, lysis of adhesions, and diverting ileostomy. Postoperative day #1. Patient examined at the bedside. He reports abdominal pain is tolerable. ostomy noted with serosanguineous drainage. No stool noted. NG tube to low intermittent suction with minimal output. Richard catheter with dark urine noted. IV fluids are currently infusing at 50 mL an hour. He is nothing by mouth. WBC 20.5. Potassium 5.2. PHYSICAL EXAM: VITAL SIGNS: Reviewed. GENERAL: Well-developed in no acute distress. HEENT: No sclera icterus. Extraocular movements grossly intact. Moist buccal mucosa. Head is atraumatic, normocephalic. ABDOMEN: Soft. Distended. Appropriate surgical tenderness. Ostomy to right lower quadrant with serosanguineous drainage. NG tube to low intermittent suction with minimal output. NEUROLOGIC: Alert and oriented. Cranial nerves II through XII grossly intact. ASSESSMENT: 1. History of colonic perforation, status post reversal of colostomy 2. Status post exploratory laparotomy, washout of peritoneal cavity, repair of anastomotic leak, lysis of adhesions, and diverting ileostomy PLAN: -Nothing by mouth except ice chips -Continue NG tube to low intermittent suction -Await bowel function -Activity as tolerated -Incentive spirometer -Pain control -1 L fluid bolus 1 -Increase IV fluids to 150 mL an hour. Discontinue potassium from IV fluids secondary to mild hyperkalemia -Continue IV antibiotics. Monitor WBC. Nurse practitioner note has been reviewed by physician. Signing provider agrees with the documented findings, assessment, and plan of care. Objective - Vital Signs Vital signs: Vital Signs Temp 97.8 F 03/07/19 07:00 Pulse 90 03/07/19 08:47 Resp 17 03/07/19 07:00 BP 113/71 03/07/19 07:00 Pulse Ox 92 L 03/07/19 07:00 Intake & Output 03/06/19 03/07/19 03/07/19 18:59 06:59 18:59 Intake Total 3500 100 Output Total 500 900 Balance -500 2600 100 Intake: IV 3100 Intake, IV Titration 400 100 Amount D5-0.45% NaCl with KCl 300 100 20Meq/l 1,000 ml @ 50 mls /hr IV .Q20H [facility] Rx#: [id number] Piperacillin-Tazobactam 3 100 .375 gm In Sodium Chloride 0.9% 100 ml @ 25 mls/hr IVPB Q8HR [facility] Rx# :[id number] Output: Gastric Drainage 0 Drainage 90 Left Lower Abdomen 90 Urine 500 610 Stool 0 Estimated Blood Loss 200 Other: Voiding Method Indwelling Catheter Indwelling Catheter Indwelling Catheter # Voids 1 # Bowel Movements 0 - Labs CBC & Chem 7: 03/07/19 06:36 03/07/19 06:36 Labs: Abnormal Lab Results - Last 24 Hours (Table) 03/07/19 03/07/19 Range/Units 06:36 06:36 WBC 20.5 H (3.8-10.6) k/uL Neutrophils # (Manual) 18.20 H (1.3-7.7) k/uL Monocytes # (Manual) 1.03 H (0-1.0) k/uL Sodium 134 L (137-145) mmol/L Potassium 5.2 H (3.5-5.1) mmol/L Glucose 144 H (74-99) mg/dL
[2019-03-07 13:47] VITALS: BMI 33.7
--- NOTE | 2019-03-07 13:48 | P.PN ---
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 However his hospital course was complicated by anastomotic leak and he underwent exploratory laparotomy with repair of the leak with diverting ileostomy on the right side, also status post lysis of adhesions. Today is postop day #1. His pain is better controlled in his abdomen, he has expected postsurgical discomfort/pain. G-tube is in a Place. Vitas looks stable. Labs showing leukocytosis with the [employer]PRES[employer]IVE 20.5 K, potassium 5.2, sodium 134 and creatinine 1.1. Patient remains on IV fluids, pain medication and also patient is on Zosyn. Objective - Vital Signs Vital signs: Vital Signs Temp 97.8 F 03/07/19 07:00 Pulse 90 03/07/19 11:57 Resp 17 03/07/19 07:00 BP 113/71 03/07/19 07:00 Pulse Ox 92 L 03/07/19 07:00 Intake & Output 03/06/19 03/07/19 03/07/19 18:59 06:59 18:59 Intake Total 3500 1200 Output Total 500 900 330 Balance -500 2600 870 Intake: IV 3100 Intake, IV Titration 400 1200 Amount D5-0.45% NaCl with KCl 300 100 20Meq/l 1,000 ml @ 50 mls /hr IV .Q20H [facility] Rx#: [id number] Piperacillin-Tazobactam 3 100 100 .375 gm In Sodium Chloride 0.9% 100 ml @ 25 mls/hr IVPB Q8HR [facility] Rx# :[id number] Sodium Chloride 0.9% 1, 1000 000 ml @ 999 mls/hr IV . Q1H1M [facility] Rx#:[id number] Output: Gastric Drainage 0 Drainage 90 30 Left Lower Abdomen 90 30 Urine 500 610 300 Stool 0 Estimated Blood Loss 200 Other: Voiding Method Indwelling Catheter Indwelling Catheter Indwelling Catheter # Voids 1 # Bowel Movements 0 - Exam GENERAL: The patient is alert and oriented x3, not in any acute distress. Well developed, well nourished. HEENT: Pupils are round and equally reacting to light. EOMI. No scleral icterus. No conjunctival pallor. Normocephalic, atraumatic. No pharyngeal erythema. No thyromegaly. CARDIOVASCULAR: S1 and S2 present. No murmurs, rubs, or gallops. PULMONARY: Chest is clear to auscultation, no wheezing or crackles. -ABDOMEN: Soft, nontender, nondistended, normoactive bowel sounds. No palpable organomegaly. Right colostomy with mild liquid stool in the colostomy back MUSCULOSKELETAL: No joint swelling or deformity. EXTREMITIES: No cyanosis, clubbing, or pedal edema. NEUROLOGICAL: Gross neurological examination did not reveal any focal deficits. SKIN: No rashes. no petechiae. - Labs CBC & Chem 7: 03/07/19 06:36 03/07/19 06:36 Labs: Abnormal Lab Results - Last 24 Hours (Table) 03/07/19 03/07/19 Range/Units 06:36 06:36 WBC 20.5 H (3.8-10.6) k/uL Neutrophils # (Manual) 18.20 H (1.3-7.7) k/uL Monocytes # (Manual) 1.03 H (0-1.0) k/uL Sodium 134 L (137-145) mmol/L Potassium 5.2 H (3.5-5.1) mmol/L Glucose 144 H (74-99) mg/dL Assessment and Plan Assessment: -Recent history of bowel perforation status post colostomy and splenectomy on 11/2018, status post reversal of colostomy on 03/03/2019, however his hospital course is complicated by leak and an anastomosis, is status post second exploratory laparotomy with repair of the leak and diverting right ileostomy -Chronic obstructive pulmonary disease, not in acute exacerbation -Bilateral atelectasis -Leukocytosis and -Mild hypernatremia -Hyperlipidemia -Nicotine dependence Plan: This is a pleasant 53 years old male who presents with reversal of colostomy, completed by leaking anastomosis status post anastomoses repair. Continue with pain management. Continue with antibiotics. Follow-up labs. Labs and medication were reviewed.. Continue same treatment. Continue with symptomatic treatment. Resume home medication. Monitor lytes and vitals. DVT and GI prophylaxis. Further recommendations of the clinical course of the patient DVT prophylaxis: Subcutaneous heparin GI Prophylaxis: Protonix PT/OT: Pending Prognosis is guarded Thank you for consulting us
[2019-03-07 20:27] LABS: Amorphous Sediment,Urine Rare /hpf; Appearance,Urine Turbid (Clear); Bilirubin,Urine Negative (Negative); Blood,Urine Small (Negative); Color,Urine Yellow; Glucose,Urine (UA) Negative (Negative); Ketones,Urine Negative (Negative); Leukocyte Esterase,Urine Negative (Negative); Mucus,Urine Rare /hpf; Nitrite,Urine Negative (Negative); PH, Urine 5.5 (5.0-8.0); Protein,Urine 1+ (Negative); RBC,Urine 27 /hpf (0-5); Specific Gravity,Urine 1.035 (1.001-1.035); Squamous Epithelial Cell,Urine <1 /hpf (0-4); Urobilinogen,Urine <2.0 mg/dL (<2.0); WBC,Urine 3 /hpf (0-5)
[2019-03-07] MEDS: ATORVASTATIN 40 MG TAB PO SCH (20:55)
[2019-03-07] MEDS: LACTATED RINGERS 1,000 ML IV SCH (20:55)
[2019-03-07] MEDS: GABAPENTIN 300 MG CAP PO SCH (20:55)
[2019-03-08] MEDS: HYDROmorphone 1 MG/ML 1 ML SYRINGE IVP PRN ×4 (02:24→22:48)
[2019-03-08] MEDS: HEPARIN SODIUM,PORCINE 5,000 UNIT/ML 1 ML VIAL SQ SCH ×2 (07:34→16:46)
[2019-03-08] MEDS: PANTOPRAZOLE 40 MG/10 ML VIAL IVP SCH ×2 (07:34→21:09)
[2019-03-08] MEDS: PIPERACILLIN-TAZOBACTAM 3.375 GM in SODIUM CHLORIDE 0.9% 100 ML IVPB SCH ×3 (07:34→23:59)
[2019-03-08 07:48] LABS: African American GFR (CKD) >90 (>60 ml/min/1.73 sqM); Anion Gap 7 mmol/L; Blood Urea Nitrogen 19 mg/dL (9-20); Carbon Dioxide 25 mmol/L (22-30); Chloride 103 mmol/L (98-107); Glucose 95 mg/dL (74-99); Non-African American GFR(CKD) >90 (>60 ml/min/1.73 sqM); Potassium 4.9 mmol/L (3.5-5.1); Sodium 135 mmol/L (137-145)
[2019-03-08 07:49] LABS: Calcium 8.4 mg/dL (8.4-10.2)
[2019-03-08 07:50] LABS: Basophils % (A) 0 %; Eosinophils # (A) 0.4 k/uL (0-0.7); Eosinophils % (A) 1 %; HCT 38.5 % (39.0-53.0); HGB 12.4 gm/dL (13.0-17.5); Lymphocytes # (A) 0.7 k/uL (1.0-4.8); Lymphocytes % (A) 3 %; MCH 30.6 pg (25.0-35.0); MCHC 32.2 g/dL (31.0-37.0); MCV 95.2 fL (80.0-100.0); Mean Platelet Volume 9.6; Monocytes # (A) 1.2 k/uL (0-1.0); Monocytes % (A) 4 %; Neutrophils # (A) 24.5 k/uL (1.3-7.7); Neutrophils % (A) 91 %; Platelet Count 295 k/uL (150-450); RBC 4.05 m/uL (4.30-5.90); RDW 14.2 % (11.5-15.5); WBC 26.9 k/uL (3.8-10.6)
[2019-03-08] MEDS: DEXTROSE 5%-0.45% NACL 1,000 ML IV SCH ×2 (08:00→15:46)
[2019-03-08] MEDS: HYDROmorphone 0.5 MG/0.5 ML SYRINGE IVP PRN ×2 (08:00→21:08)
[2019-03-08] MEDS: IPRATROPIUM-ALBUTEROL 3 ML NEB INHALATION SCH ×4 (08:18→21:10)
[2019-03-08] MEDS: SYMBICORT 160-4.5 MCG INHALER INHALATION SCH ×2 (08:18→21:10)
--- NOTE | 2019-03-08 08:55 | P.PN ---
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 However his hospital course was complicated by anastomotic leak and he underwent exploratory laparotomy with repair of the leak with diverting ileostomy on the right side, also status post lysis of adhesions. Today is postop day #1. His pain is better controlled in his abdomen, he has expected postsurgical discomfort/pain. G-tube is in a Place. Vitas looks stable. Labs showing leukocytosis with the SOFA BACK UPHOLSTERER 20.5 K, potassium 5.2, sodium 134 and creatinine 1.1. Patient remains on IV fluids, pain medication and also patient is on Zosyn. 03/08/2019 Patient today was complaining of from lower abdominal pain that responded partially to Dilaudid associated with nausea after opioid. His colostomy back have small amount of stool in it. Patient denies chest pain, dyspnea or dizziness however there is pink alert urine in his Richard catheter. With UA show ing urine RBC is 27. Other than that patient vitals showing patient is been afebrile since yesterday, last time he had fever was 03/06/2019 at 10 Fahrenheit. He has worsening leukocytosis today at 26.9. BMP looks his stable with mild hyponatremia at 135, potassium 4.9, creatinine normal 0.8. Patient currently remains on Zosyn. Objective - Vital Signs Vital signs: Vital Signs Temp 98.5 F 03/08/19 02:54 Pulse 95 03/08/19 08:31 Resp 19 03/08/19 02:54 BP 129/79 03/08/19 02:54 Pulse Ox 89 L 03/08/19 02:54 Intake & Output 03/07/19 03/08/19 03/08/19 18:59 06:59 18:59 Intake Total 3050 1850 Output Total 430 1565 Balance 2620 285 Weight 109.769 kg Intake: Intake, IV Titration 3050 1850 Amount D5-0.45% NaCl with KCl 100 20Meq/l 1,000 ml @ 50 mls /hr IV .Q20H [facility] Rx#: [id number] Dextrose 5%-0.45% NaCl 1, 750 1650 000 ml @ 150 mls/hr IV . Q6H40M [facility] Rx#:[id number] Piperacillin-Tazobactam 3 200 200 .375 gm In Sodium Chloride 0.9% 100 ml @ 25 mls/hr IVPB Q8HR [facility] Rx# :[id number] Sodium Chloride 0.9% 1, 2000 000 ml @ 999 mls/hr IV . Q1H1M [facility] Rx#:[id number] Output: Gastric Drainage 130 Drainage 30 110 Left Lower Abdomen 30 110 Urine 300 1225 Stool 100 100 Other: Voiding Method Indwelling Catheter Indwelling Catheter # Voids 1 # Bowel Movements 1 - Exam GENERAL: The patient is alert and oriented x3, not in any acute distress. Well developed, well nourished. HEENT: Pupils are round and equally reacting to light. EOMI. No scleral icterus. No conjunctival pallor. Normocephalic, atraumatic. No pharyngeal erythema. No thyromegaly. CARDIOVASCULAR: S1 and S2 present. No murmurs, rubs, or gallops. PULMONARY: Chest is clear to auscultation, no wheezing or crackles. -ABDOMEN: Soft, nontender, nondistended, normoactive bowel sounds. No palpable organomegaly. Right colostomy with semi-formed dark stool in the colostomy back. Richard catheter is in place MUSCULOSKELETAL: No joint swelling or deformity. EXTREMITIES: No cyanosis, clubbing, or pedal edema. NEUROLOGICAL: Gross neurological examination did not reveal any focal deficits. SKIN: No rashes. no petechiae. - Labs CBC & Chem 7: 03/08/19 06:43 03/08/19 06:43 Labs: Abnormal Lab Results - Last 24 Hours (Table) 03/07/19 03/08/19 03/08/19 Range/Units 19:50 06:43 06:43 WBC 26.9 H (3.8-10.6) k/uL RBC 4.05 L (4.30-5.90) m/uL Hgb 12.4 L (13.0-17.5) gm/dL Hct 38.5 L (39.0-53.0) % Neutrophils # 24.5 H (1.3-7.7) k/uL Lymphocytes # 0.7 L (1.0-4.8) k/uL Monocytes # 1.2 H (0-1.0) k/uL Sodium 135 L (137-145) mmol/L Urine Protein 1+ H (Negative) Urine Blood Small H (Negative) Urine RBC 27 H (0-5) /hpf Amorphous Sediment Rare H (None) /hpf Urine Mucus Rare H (None) /hpf Microbiology - Last 24 Hours (Table) 03/06/19 18:38 Blood Culture - Preliminary Blood No Growth after 24 hours Assessment and Plan Assessment: -Recent history of bowel perforation status post colostomy and splenectomy on 11/2018, status post reversal of colostomy on 03/03/2019, however his hospital course is complicated by leak and an anastomosis, is status post second exploratory laparotomy with repair of the leak and diverting right ileostomy -Mild hematuria, recheck urinalysis and urine culture -Systemic inflammatory response with leukocytosis and fever, possible sepsis. -Chronic obstructive pulmonary disease, not in acute exacerbation -Bilateral atelectasis -Mild hyponatremia -Hyperlipidemia -Nicotine dependence Plan: This is a pleasant 53 years old male who presents with reversal of colostomy, completed by leaking anastomosis status post anastomoses repair. Continue with pain management. Continue with antibiotics. consult ID team. Follow-up labs. Labs and medication were reviewed.. Continue same treatment. Continue with symptomatic treatment. Resume home medication. Monitor lytes and vitals. DVT and GI prophylaxis. Further recommendations of the clinical course of the patient DVT prophylaxis: Subcutaneous heparin GI Prophylaxis: Protonix PT/OT: Pending Prognosis is guarded Thank you for consulting us
[2019-03-08 12:02] LABS: Appearance,Urine Turbid (Clear); Bacteria,Urine Rare /hpf; Bilirubin,Urine Negative (Negative); Blood,Urine Moderate (Negative); Color,Urine Yellow; Glucose,Urine (UA) Negative (Negative); Ketones,Urine Negative (Negative); Leukocyte Esterase,Urine Negative (Negative); Mucus,Urine Many /hpf; Nitrite,Urine Negative (Negative); PH, Urine 5.5 (5.0-8.0); Protein,Urine 1+ (Negative); RBC,Urine 127 /hpf (0-5); Specific Gravity,Urine 1.029 (1.001-1.035); Squamous Epithelial Cell,Urine 1 /hpf (0-4); Uric Acid Crystals,Urine Occasional /hpf; Urobilinogen,Urine <2.0 mg/dL (<2.0); WBC,Urine 28 /hpf (0-5)
--- NOTE | 2019-03-08 12:57 | CDI ---
Documentation Clarification Form Date: 03/08/2019 12:50:11 PM From: Cleopatra Novoa CCS, CCDS Admit Date: 03/03/2019 7:50:00 AM Patient Name: Yevgeniy Monson Visit Number: [id number] Discharge Date: ATTENTION: The Clinical Documentation Specialists (CDI) and [facility] Coding Staff appreciate your assistance in clarifying documentation. Please respond to the clarification below the line at the bottom and electronically sign. The CDI & [facility] Coding staff will review the response and follow-up if needed. Please note: Queries are made part of the Legal Health Record. If you have any questions, please contact the author of this message via ITS. Dr. Franck Moralez: Patient was admitted after reversal of colostomy, subsequently developed an anastomotic leak requiring repair & diverting ileostomy. Patients Admitting Diagnosis: Previous perforated colon requiring colostomy, reverse. Post-Operative Diagnosis: Postop developed anastomotic leak requiring exploratory laparotomy, washout of peritoneal cavity, repair of anastomotic leak, lysis of adhesions & diverting ileostomy. Procedure performed: As above. History/Risk Factors: Previous crush injury to abdomen resulting in a ruptured colon & colostomy; Hyperlipidemia, Smoker, Splenectomy, smoker. Clinical Indicators: Presented for reversal of colostomy, developed anastomotic leak requiring ileostomy. Treatment: Surgery as above, IV Dilaudid, IV Zofran, IV Cefazolin, Heparin sq, IV Flagyl, IV Decadron, IV Tylenol, IV Reglan, IV Toradol, INH Albuterol. In order to accurately reflect this patients severity of illness, please clarify if the anastomic leak is the result of the surgical procedure? ____ Yes ____ No Other, please specify Unable to determine (Last Revision: June 2017) Unable to determine MTDD
--- NOTE | 2019-03-08 14:18 | P.PN ---
Subjective Progress Note Date: 03/08/19 CHIEF COMPLAINT: History of colonic perforation HISTORY OF PRESENT ILLNESS: Patient is status post reversal of colostomy performed on 03/03/2019. Patient is also status post exploratory laparotomy, washout of peritoneal cavity, repair of anastomotic leak, lysis of adhesions, and diverting ileostomy. Postoperative day #2. Patient examined at the bedside. He reports abdominal pain is tolerable. Ostomy with brown liquid stool noted. NG tube to low intermittent suction. WBC 26.9. Hemoglobin 12.4. PHYSICAL EXAM: VITAL SIGNS: Reviewed. GENERAL: Well-developed in no acute distress. HEENT: No sclera icterus. Extraocular movements grossly intact. Moist buccal mucosa. Head is atraumatic, normocephalic. ABDOMEN: Soft. Distended. Appropriate surgical tenderness. Ostomy to right lower quadrant with brown liquid stool. NG tube to low intermittent suction with minimal output. NEUROLOGIC: Alert and oriented. Cranial nerves II through XII grossly intact. ASSESSMENT: 1. History of colonic perforation, status post reversal of colostomy 2. Status post exploratory laparotomy, washout of peritoneal cavity, repair of anastomotic leak, lysis of adhesions, and diverting ileostomy PLAN: -Discontinue NG tube -Begin clear liquid diet -Discontinue Richard catheter -Decrease IV fluids to 100 mL an hour -Increase activity as tolerated. Consult PT/OT -Incentive spirometer encouraged -Continue IV antibiotics. Monitor WBC. Infectious disease on consult. Nurse practitioner note has been reviewed by physician. Signing provider agrees with the documented findings, assessment, and plan of care. Objective - Vital Signs Vital signs: Vital Signs Temp 99.5 F 03/08/19 07:49 Pulse 92 03/08/19 12:17 Resp 18 03/08/19 07:49 BP 143/67 03/08/19 07:49 Pulse Ox 94 L 03/08/19 07:49 Intake & Output 03/07/19 03/08/19 03/08/19 18:59 06:59 18:59 Intake Total 3050 1850 Output Total 430 1565 420 Balance 2620 285 -420 Weight 109.769 kg Intake: Intake, IV Titration 3050 1850 Amount D5-0.45% NaCl with KCl 100 20Meq/l 1,000 ml @ 50 mls /hr IV .Q20H [facility] Rx#: [id number] Dextrose 5%-0.45% NaCl 1, 750 1650 000 ml @ 150 mls/hr IV . Q6H40M [facility] Rx#:[id number] Piperacillin-Tazobactam 3 200 200 .375 gm In Sodium Chloride 0.9% 100 ml @ 25 mls/hr IVPB Q8HR [facility] Rx# :[id number] Sodium Chloride 0.9% 1, 2000 000 ml @ 999 mls/hr IV . Q1H1M [facility] Rx#:[id number] Output: Gastric Drainage 130 Drainage 30 110 20 Left Lower Abdomen 30 110 20 Urine 300 1225 400 Stool 100 100 Other: Voiding Method Indwelling Catheter Indwelling Catheter Indwelling Catheter # Voids 1 # Bowel Movements 1 - Labs CBC & Chem 7: 03/08/19 06:43 03/08/19 06:43 Labs: Abnormal Lab Results - Last 24 Hours (Table) 03/07/19 03/08/19 03/08/19 Range/Units 19:50 06:43 06:43 WBC 26.9 H (3.8-10.6) k/uL RBC 4.05 L (4.30-5.90) m/uL Hgb 12.4 L (13.0-17.5) gm/dL Hct 38.5 L (39.0-53.0) % Neutrophils # 24.5 H (1.3-7.7) k/uL Lymphocytes # 0.7 L (1.0-4.8) k/uL Monocytes # 1.2 H (0-1.0) k/uL Sodium 135 L (137-145) mmol/L Urine Protein 1+ H (Negative) Urine Blood Small H (Negative) Urine RBC 27 H (0-5) /hpf Urine WBC (0-5) /hpf Uric Acid Crystals (None) /hpf Amorphous Sediment Rare H (None) /hpf Urine Bacteria (None) /hpf Urine Mucus Rare H (None) /hpf 03/08/19 Range/Units 11:15 WBC (3.8-10.6) k/uL RBC (4.30-5.90) m/uL Hgb (13.0-17.5) gm/dL Hct (39.0-53.0) % Neutrophils # (1.3-7.7) k/uL Lymphocytes # (1.0-4.8) k/uL Monocytes # (0-1.0) k/uL Sodium (137-145) mmol/L Urine Protein 1+ H (Negative) Urine Blood Moderate H (Negative) Urine RBC 127 H (0-5) /hpf Urine WBC 28 H (0-5) /hpf Uric Acid Crystals Occasional H (None) /hpf Amorphous Sediment (None) /hpf Urine Bacteria Rare H (None) /hpf Urine Mucus Many H (None) /hpf Microbiology - Last 24 Hours (Table) 03/06/19 18:38 Blood Culture - Preliminary Blood No Growth after 24 hours
[2019-03-08] MEDS: HYDROcodone/APAP 7.5-325MG 1 EACH TAB PO PRN ×2 (14:46→19:45)
[2019-03-08] MEDS: ALPRAZolam 1 MG TAB PO PRN (15:08)
[2019-03-08] MEDS: ACETAMINOPHEN TAB 325 MG TAB PO PRN (21:08)
[2019-03-08] MEDS: ATORVASTATIN 40 MG TAB PO SCH (21:08)
[2019-03-08] MEDS: GABAPENTIN 300 MG CAP PO SCH (21:08)
[2019-03-08] MEDS: LACTATED RINGERS 1,000 ML IV SCH (21:52)
[2019-03-08] MEDS ORDERED: IBUPROFEN 600 MG TAB PO STA (22:10)
[2019-03-08] MEDS: IPRATROPIUM-ALBUTEROL 3 ML NEB INHALATION PRN (22:20)
[2019-03-09] MEDS: DEXTROSE 5%-0.45% NACL 1,000 ML IV SCH ×3 (00:42→17:49)
[2019-03-09] MEDS: HYDROmorphone 1 MG/ML 1 ML SYRINGE IVP PRN ×2 (01:29→20:10)
[2019-03-09 07:20] LABS: Basophils % (A) 0 %; Eosinophils # (A) 0.6 k/uL (0-0.7); Eosinophils % (A) 2 %; HCT 36.2 % (39.0-53.0); HGB 11.9 gm/dL (13.0-17.5); Lymphocytes # (A) 0.8 k/uL (1.0-4.8); Lymphocytes % (A) 3 %; MCH 30.8 pg (25.0-35.0); MCHC 32.8 g/dL (31.0-37.0); MCV 93.8 fL (80.0-100.0); Mean Platelet Volume 9.2; Monocytes # (A) 1.3 k/uL (0-1.0); Monocytes % (A) 5 %; Neutrophils # (A) 24.3 k/uL (1.3-7.7); Neutrophils % (A) 89 %; Platelet Count 288 k/uL (150-450); RBC 3.85 m/uL (4.30-5.90); RDW 14.4 % (11.5-15.5); WBC 27.3 k/uL (3.8-10.6)
[2019-03-09 07:27] LABS: African American GFR (CKD) >90 (>60 ml/min/1.73 sqM); Anion Gap 3 mmol/L; Blood Urea Nitrogen 14 mg/dL (9-20); Calcium 8.4 mg/dL (8.4-10.2); Carbon Dioxide 28 mmol/L (22-30); Chloride 104 mmol/L (98-107); Glucose 94 mg/dL (74-99); Non-African American GFR(CKD) >90 (>60 ml/min/1.73 sqM); Potassium 4.9 mmol/L (3.5-5.1); Sodium 135 mmol/L (137-145)
[2019-03-09] MEDS: HYDROcodone/APAP 7.5-325MG 1 EACH TAB PO PRN ×4 (09:19→18:09)
[2019-03-09] MEDS: SYMBICORT 160-4.5 MCG INHALER INHALATION SCH ×2 (09:28→20:55)
[2019-03-09] MEDS: IPRATROPIUM-ALBUTEROL 3 ML NEB INHALATION SCH ×4 (09:28→20:55)
[2019-03-09] MEDS: PIPERACILLIN-TAZOBACTAM 3.375 GM in SODIUM CHLORIDE 0.9% 100 ML IVPB SCH (09:29)
[2019-03-09] MEDS: HEPARIN SODIUM,PORCINE 5,000 UNIT/ML 1 ML VIAL SQ SCH ×3 (09:30→17:58)
[2019-03-09] MEDS: PANTOPRAZOLE 40 MG/10 ML VIAL IVP SCH ×2 (09:30→20:52)
--- NOTE | 2019-03-09 09:42 | P.CONS ---
History of Present Illness - Reason for Consult Consult date: 03/08/19 leukocytosis post bowel leak Requesting physician: Franck Moralez - Chief Complaint abdominal pain post surgery x few days - History of Present Illness Patient is a 53-year male with a past medical history for colonic perforation requiring diverting colostomy the patient was electively admitted to the hospital on March 03, 2019 for reversal of his colostomy, post surgery the patient did have a abdominal pain a CT of abdominal pelvis was done on March 06, 2019 we did shows free intraperitoneal air and fluid, patient was taken back to the OR on 03/06/2019 patient is status post exploratory laparotomy he was noticed to have evidence of perforated viscus with anastomosis leak status post repair of anastomotic leak and diverting ileostomy and lysis of adhesion, since surgery the patient did have low-grade fever 100 on 03/06/2019 but no fever since then, however patient noticed to have worsening of his white count since his surgery which was 20,000 on yesterday and is up to 26.9 today that prompted this infectious disease consultation the patient has been on Zosyn since his surgery, the patient at the time my evaluation today he denies having any worsening abdominal pain however his abdominal pain has improved but denies having any nausea no vomiting denies having any chest pain shortness of breath or cough no diarrhea patient main symptom has been urinary burning after discontinuation of his Richard catheter. Review of Systems CONSTITUTIONAL: Positive for weakness. Denies fever EYES: No complaint. ENT:No complaint. RESPIRATORY: No complaint. CARDIOVASCULAR: No complaint. GENITOURINARY: As per history of present illness. GASTROINTESTINAL: As per history of present illness. MUSCULOSKELETAL: No complaint. INTEGUMENTARY: No complaint. PSYCHOLOGICAL: No complaint. ENDOCRINE: No complaint. NEUROLOGIC: No complaint. Past Medical History Past Medical History: Hyperlipidemia Additional Past Medical History / Comment(s): crush injury to abdomen 2 months ago resulting in "ruptured colon" per pt., had surgery & was in [facility] History of Any Multi-Drug Resistant Organisms: None Reported Past Surgical History: Bowel Resection, Orthopedic Surgery Additional Past Surgical History / Comment(s): HAND SURGERY, ORIF right ankle, bowel resection w/colostomy & splenectomy 2018 Past Anesthesia/Blood Transfusion Reactions: No Reported Reaction Past Psychological History: No Psychological Hx Reported Smoking Status: Current every day smoker Past Alcohol Use History: None Reported Additional Past Alcohol Use History / Comment(s): 1-2ppd down to 8 cigs/day since teens Past Drug Use History: Marijuana Additional Drug Use History / Comment(s): 6-8 times per week - Past Family History Brother(s) Family Medical History: Cancer Additional Family Medical History / Comment(s): colon Medications and Allergies Home Medications Medication Instructions Recorded Confirmed Type Atorvastatin [Lipitor] 40 mg PO HS 01/28/19 03/03/19 History Gabapentin [Neurontin] 600 mg PO HS 01/28/19 03/03/19 History hydrOXYzine HCL [Atarax] 50 mg PO HS PRN 01/28/19 03/03/19 History Allergies Allergy/AdvReac Type Severity Reaction Status Date / Time No Known Allergies Allergy Verified 03/02/19 07:54 Physical Exam Vitals: Vital Signs Temp Pulse Pulse Resp BP BP Pulse Ox 03/08/19 08:31 95 03/08/19 08:18 94 03/08/19 07:49 99.5 F 104 H 18 143/67 94 L 03/08/19 07:25 18 03/08/19 02:54 98.5 F 97 19 129/79 89 L 03/07/19 21:05 89 03/07/19 20:53 89 98 03/07/19 20:16 98.1 F 88 19 120/80 95 03/07/19 16:00 16 03/07/19 13:20 97.3 F L 86 16 103/66 95 03/07/19 11:57 90 03/07/19 11:44 88 Intake and Output 03/07/19 03/08/19 03/08/19 22:59 06:59 14:59 Intake Total 2250 1450 Output Total 330 1335 220 Balance 1920 115 -220 Intake: Intake, IV Titration 2250 1450 Amount Dextrose 5%-0.45% NaCl 1, 1050 1350 000 ml @ 150 mls/hr IV . Q6H40M [facility] Rx#:[id number] Piperacillin-Tazobactam 3 200 100 .375 gm In Sodium Chloride 0.9% 100 ml @ 25 mls/hr IVPB Q8HR [facility] Rx# :[id number] Sodium Chloride 0.9% 1, 1000 000 ml @ 999 mls/hr IV . Q1H1M [facility] Rx#:[id number] Output: Gastric Drainage 130 Drainage 30 80 20 Left Lower Abdomen 30 80 20 Urine 200 1025 200 Stool 100 100 Other: Voiding Method Indwelling Catheter Indwelling Catheter # Voids 1 # Bowel Movements 1 GENERAL DESCRIPTION: Middle-aged male lying in bed, no distress. No tachypnea or accessory muscle of respiration use. HEENT: Shows Pallor , no scleral icterus. Oral mucous membrane is dry. No pharyngeal erythema or thrush NECK: Trachea central, no thyromegaly. LUNGS: Unlabored breathing. Clear to auscultation anteriorly. No wheeze or crackle. HEART: S1, S2, regular rate and rhythm. No loud murmur ABDOMEN: Soft, mild distention and minimal tenderness , no guarding or rigidity, no organomegaly EXTREMITIES: No edema of feet. SKIN: No rash, no masses palpable. NEUROLOGICAL: The patient is awake, alert, oriented x3, mood and affect normal. Results CBC & Chem 7: 03/09/19 07:01 03/09/19 07:01 Labs: Abnormal Lab Results - Last 24 Hours (Table) 03/07/19 03/08/19 03/08/19 Range/Units 19:50 06:43 06:43 WBC 26.9 H (3.8-10.6) k/uL RBC 4.05 L (4.30-5.90) m/uL Hgb 12.4 L (13.0-17.5) gm/dL Hct 38.5 L (39.0-53.0) % Neutrophils # 24.5 H (1.3-7.7) k/uL Lymphocytes # 0.7 L (1.0-4.8) k/uL Monocytes # 1.2 H (0-1.0) k/uL Sodium 135 L (137-145) mmol/L Urine Protein 1+ H (Negative) Urine Blood Small H (Negative) Urine RBC 27 H (0-5) /hpf Amorphous Sediment Rare H (None) /hpf Urine Mucus Rare H (None) /hpf Microbiology - Last 24 Hours (Table) 03/06/19 18:38 Blood Culture - Preliminary Blood No Growth after 24 hours Assessment and Plan Assessment: -patient with leukocytosis in this patient who is status post laparotomy for anastomosis leak in this patient who recently did have a reversal of his colostomy now status post diverting ileostomy and repair of the anastomosis leak source is likely abdominal and will likely need to cover for enteric gram- negative both aerobes and anaerobes in view of no fever and the patient symptoms improving recommend to monitor closely while on Zosyn Plan: 1-Zosyn 3.375 g every 8 hours to continue for now 2-if the patient spiked any fever or any worsening white count blood culture will be did may need to repeat a CT and adjust antibiotic further We will follow on clinical condition and cultures to further adjust medication if needed Thank you for this consultation will follow this patient along with you Time with Patient: Greater than 30
--- NOTE | 2019-03-09 09:46 | P.PN ---
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 However his hospital course was complicated by anastomotic leak and he underwent exploratory laparotomy with repair of the leak with diverting ileostomy on the right side, also status post lysis of adhesions. Today is postop day #1. His pain is better controlled in his abdomen, he has expected postsurgical discomfort/pain. G-tube is in a Place. Vitas looks stable. Labs showing leukocytosis with the [employer] 20.5 K, potassium 5.2, sodium 134 and creatinine 1.1. Patient remains on IV fluids, pain medication and also patient is on Zosyn. 03/08/2019 Patient today was complaining of from lower abdominal pain that responded partially to Dilaudid associated with nausea after opioid. His colostomy back have small amount of stool in it. Patient denies chest pain, dyspnea or dizziness however there is pink alert urine in his Richard catheter. With UA show ing urine RBC is 27. Other than that patient vitals showing patient is been afebrile since yesterday, last time he had fever was 03/06/2019 at 10 Fahrenheit. He has worsening leukocytosis today at 26.9. BMP looks his stable with mild hyponatremia at 135, potassium 4.9, creatinine normal 0.8. Patient currently remains on Zosyn. 03/09/2019 Patient NG tube was DC'd yesterday, he was started on a clear diet. No nausea vomiting, his abdominal pain is much better today with pain medication but serrated 3/10, his colostomy back in a Place with dark watery stool. His vitals are stable and he is uuiumeexpc07% on 3 L oxygen. he has spiked a fever of 102.2 yesterday night.Richard catheter was discontinued yesterday and he is able to be. We will check residual urine.WBC is 27.3K,hemoglobin is stable at 11.9.urine cultures pending.infectious disease already evaluated the patient and their input is appreciated. Recommend May need to repeat CAT scan of the abdomen.antibiotics has been adjusted to cefepime and Flagyl Review of systems HEENT: No recent visual problems or hearing problems. Denied any sore throat. CARDIOVASCULAR: No orthopnea, PND, no palpitations, no syncope. PULMONARY: No shortness of breath, no cough, no hemoptysis. NEUROLOGICAL: No headaches, no weakness, no numbness. HEMATOLOGICAL: Denies any bleeding or petechiae. GENITOURINARY: Denies any burning micturition, frequency, or urgency. MUSCULOSKELETAL/RHEUMATOLOGICAL: Denies any joint pain, swelling, or any muscle pain. ENDOCRINE: Denies any polyuria or polydipsia. Active Medications Generic Name Dose Route Start Last Admin Trade Name Freq PRN Reason Stop Dose Admin Acetaminophen 650 mg 03/08/19 20:51 03/08/19 21:08 Tylenol Tab PO 650 mg Q4HR PRN Administration Fever and/ or Pain Hydrocodone Bitart/Acetaminophen 1 each 03/08/19 11:05 03/09/19 00:00 Sherman 7.5-325 PO 1 each Q4H PRN Administration Pain Albuterol/Ipratropium 3 ml 03/04/19 12:25 03/08/19 22:20 Duoneb 0.5 Mg-3 Mg/3 Ml Soln INHALATION 3 ml RT-QID PRN Administration Shortness Of Breath Or Wheezing Albuterol/Ipratropium 3 ml 03/04/19 16:00 03/09/19 09:28 Duoneb 0.5 Mg-3 Mg/3 Ml Soln INHALATION 3 ml RT-QID [facility] Administration Alprazolam 1 mg 03/06/19 09:59 03/08/19 15:08 Xanax PO 1 mg Q4H PRN Administration Anxiety Atorvastatin Calcium 40 mg 03/04/19 21:00 03/08/19 21:08 Lipitor PO 40 mg HS [facility] Administration Budesonide/Formoterol Fumarate 2 puff 03/05/19 20:00 03/09/19 09:28 Symbicort 160-4.5 Mcg Inhaler INHALATION 2 puff RT-BID [facility] Administration Gabapentin 600 mg 03/04/19 21:00 03/08/19 21:08 Neurontin PO 600 mg HS [facility] Administration Heparin Sodium (Porcine) 5,000 unit 03/03/19 16:00 03/09/19 09:30 Heparin SQ 5,000 unit Q8HR [facility] Administration Hydromorphone HCl 0.5 mg 03/03/19 14:41 03/08/19 21:08 Dilaudid IVP 0.5 mg Q3HR PRN Administration Pain Hydromorphone HCl 1 mg 03/08/19 11:04 03/09/19 01:29 Dilaudid IVP 1 mg Q3HR PRN Administration Severe Pain Lactated Ringer's 1,000 mls @ 20 mls/hr 03/02/19 21:15 03/08/19 21:52 Lactated Ringers IV Not Given .Q24H [facility] Dextrose/Sodium Chloride 1,000 mls @ 100 mls/hr 03/07/19 09:15 03/09/19 08:43 Dextrose 5%-1/2ns Iv Soln IV Not Given .Q10H [facility] Fluconazole/Sodium Chloride 100 mls @ 100 mls/hr 03/09/19 09:30 200 mg/ IV Solution IVPB DAILY [facility] Cefepime HCl 2 gm/ Sodium 100 mls @ 200 mls/hr 03/09/19 09:45 Chloride IVPB Q12HR [facility] Metronidazole 500 mg/ IV 100 mls @ 100 mls/hr 03/09/19 09:45 Solution IVPB Q8HR [facility] Melatonin 5 mg 03/05/19 23:42 03/05/19 23:58 Melatonin PO 5 mg HS PRN Administration Insomnia Metoclopramide HCl 10 mg 03/03/19 11:42 03/07/19 01:46 Reglan IVP 10 mg Q6HR PRN Administration Nausea and Vomiting Ondansetron HCl 4 mg 03/03/19 11:42 Zofran IVP Q8HR PRN Nausea And Vomiting Pantoprazole Sodium 40 mg 03/06/19 21:00 03/09/19 09:30 Protonix IVP 40 mg BID [facility] Administration Objective - Vital Signs Vital signs: Vital Signs Temp 98.1 F 03/09/19 07:00 Pulse 84 03/09/19 09:31 Resp 16 03/09/19 07:00 BP 130/75 03/09/19 07:00 Pulse Ox 95 03/09/19 09:31 Intake & Output 03/08/19 03/09/19 03/09/19 18:59 06:59 18:59 Intake Total 1400 Output Total 1770 1440 Balance -1770 -40 Intake: Intake, IV Titration 1200 Amount Dextrose 5%-0.45% NaCl 1, 1200 000 ml @ 100 mls/hr IV . Q10H [facility] Rx#:[id number] Oral 200 Output: Drainage 70 40 Left Lower Abdomen 70 40 Urine 1200 1400 Stool 500 Other: Voiding Method Indwelling Catheter Urinal # Voids 1 1 - Exam GENERAL: The patient is alert and oriented x3, not in any acute distress. Well developed, well nourished. HEENT: Pupils are round and equally reacting to light. EOMI. No scleral icterus. No conjunctival pallor. Normocephalic, atraumatic. No pharyngeal erythema. No thyromegaly. CARDIOVASCULAR: S1 and S2 present. No murmurs, rubs, or gallops. PULMONARY: Chest is clear to auscultation, no wheezing or crackles. -ABDOMEN: Soft, nontender, nondistended, normoactive bowel sounds. No palpable organomegaly. Right colostomy with semi-formed dark stool in the colostomy back. Richard catheter is in place MUSCULOSKELETAL: No joint swelling or deformity. EXTREMITIES: No cyanosis, clubbing, or pedal edema. NEUROLOGICAL: Gross neurological examination did not reveal any focal deficits. SKIN: No rashes. no petechiae. - Labs CBC & Chem 7: 03/09/19 07:01 03/09/19 07:01 Labs: Abnormal Lab Results - Last 24 Hours (Table) 03/08/19 03/09/19 03/09/19 Range/Units 11:15 07:01 07:01 WBC 27.3 H (3.8-10.6) k/uL RBC 3.85 L (4.30-5.90) m/uL Hgb 11.9 L (13.0-17.5) gm/dL Hct 36.2 L (39.0-53.0) % Neutrophils # 24.3 H (1.3-7.7) k/uL Lymphocytes # 0.8 L (1.0-4.8) k/uL Monocytes # 1.3 H (0-1.0) k/uL Sodium 135 L (137-145) mmol/L Urine Protein 1+ H (Negative) Urine Blood Moderate H (Negative) Urine RBC 127 H (0-5) /hpf Urine WBC 28 H (0-5) /hpf Uric Acid Crystals Occasional H (None) /hpf Urine Bacteria Rare H (None) /hpf Urine Mucus Many H (None) /hpf Microbiology - Last 24 Hours (Table) 03/06/19 18:38 Blood Culture - Preliminary Blood No Growth after 48 hours 03/08/19 11:15 Urine Culture - Preliminary Urine,Voided Assessment and Plan Assessment: -Recent history of bowel perforation 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 -Chronic obstructive pulmonary disease, not in acute exacerbation -Bilateral atelectasis -Mild hyponatremia -Hyperlipidemia -Nicotine dependence Plan: This is a pleasant 53 years old male who presents with reversal of colostomy, completed by leaking anastomosis status post anastomoses repair. Continue with pain management. change antibiotics as per ID team recommendation. Follow-up labs. Labs and medication were reviewed.. Continue same treatment. Continue with symptomatic treatment. Resume home medication. Monitor lytes and vitals. DVT and GI prophylaxis. Further recommendations of the clinical course of the patient DVT prophylaxis: Subcutaneous heparin GI Prophylaxis: Protonix PT/OT: Pending Prognosis is guarded Thank you for consulting us
--- NOTE | 2019-03-09 11:43 | P.PN ---
Subjective Progress Note Date: 03/09/19 CHIEF COMPLAINT: History of colonic perforation HISTORY OF PRESENT ILLNESS: Patient is status post reversal of colostomy performed on 03/03/2019. Patient is also status post exploratory laparotomy, washout of peritoneal cavity, repair of anastomotic leak, lysis of adhesions, and diverting ileostomy. Postoperative day #3. Patient examined at the bedside. Patient reports he had a rough night and was in severe pain. He was also febrile overnight. Pain is improved this morning. Afebrile. Denies nausea or vomiting. Tolerating clear liquid diet. WBC increased to 27.3. PHYSICAL EXAM: VITAL SIGNS: Reviewed. GENERAL: Well-developed in no acute distress. HEENT: No sclera icterus. Extraocular movements grossly intact. Moist buccal mucosa. Head is atraumatic, normocephalic. ABDOMEN: Soft. Appropriate surgical tenderness. Ostomy to right lower quadrant with brown liquid stool. NEUROLOGIC: Alert and oriented. Cranial nerves II through XII grossly intact. ASSESSMENT: 1. History of colonic perforation, status post reversal of colostomy 2. Status post exploratory laparotomy, washout of peritoneal cavity, repair of anastomotic leak, lysis of adhesions, and diverting ileostomy PLAN: -Continue clear liquid diet -Decrease IV fluids to 50 mL an hour -Increase activity as tolerated. PT/OT -Incentive spirometer encouraged -Continue IV antibiotics. Monitor WBC. Infectious disease on consult. -Case discussed with Dr. Morin. Continue Zosyn. Will also add Diflucan 200mg IV daily per Dr. Morin recommendations If WBC continues to increase tomorrow, will obtain CT scan Nurse practitioner note has been reviewed by physician. Signing provider agrees with the documented findings, assessment, and plan of care. Objective - Vital Signs Vital signs: Vital Signs Temp 98.1 F 03/09/19 07:00 Pulse 92 03/09/19 09:42 Resp 16 03/09/19 07:00 BP 130/75 03/09/19 07:00 Pulse Ox 95 03/09/19 09:31 Intake & Output 03/08/19 03/09/19 03/09/19 18:59 06:59 18:59 Intake Total 1400 200 Output Total 1770 1440 135 Balance -1770 -40 65 Intake: Intake, IV Titration 1200 200 Amount Dextrose 5%-0.45% NaCl 1, 1200 200 000 ml @ 100 mls/hr IV . Q10H [facility] Rx#:[id number] Oral 200 Output: Drainage 70 40 10 Left Lower Abdomen 70 40 10 Urine 1200 1400 125 Stool 500 Other: Voiding Method Indwelling Catheter Urinal # Voids 1 1 - Labs CBC & Chem 7: 03/09/19 07:01 03/09/19 07:01 Labs: Abnormal Lab Results - Last 24 Hours (Table) 03/08/19 03/09/19 03/09/19 Range/Units 11:15 07:01 07:01 WBC 27.3 H (3.8-10.6) k/uL RBC 3.85 L (4.30-5.90) m/uL Hgb 11.9 L (13.0-17.5) gm/dL Hct 36.2 L (39.0-53.0) % Neutrophils # 24.3 H (1.3-7.7) k/uL Lymphocytes # 0.8 L (1.0-4.8) k/uL Monocytes # 1.3 H (0-1.0) k/uL Sodium 135 L (137-145) mmol/L Urine Protein 1+ H (Negative) Urine Blood Moderate H (Negative) Urine RBC 127 H (0-5) /hpf Urine WBC 28 H (0-5) /hpf Uric Acid Crystals Occasional H (None) /hpf Urine Bacteria Rare H (None) /hpf Urine Mucus Many H (None) /hpf Microbiology - Last 24 Hours (Table) 03/06/19 18:38 Blood Culture - Preliminary Blood No Growth after 48 hours 03/08/19 11:15 Urine Culture - Preliminary Urine,Voided
[2019-03-09] MEDS: CEFEPIME 2 GM in SODIUM CHLORIDE 0.9% 100 ML IVPB SCH ×2 (12:16→20:55)
[2019-03-09] MEDS: FLUCONAZOLE IN NACL,ISO-OSM 200 MG in SALINE 1 100ML.BAG IVPB SCH (12:16)
[2019-03-09] MEDS: metroNIDAZOLE-NS PMX 500 MG in SALINE 1 100ML.BAG IVPB SCH ×2 (12:16→17:58)
[2019-03-09] MEDS: ALPRAZolam 1 MG TAB PO PRN ×2 (12:36→21:06)
[2019-03-09] MEDS: LACTATED RINGERS 1,000 ML IV SCH (19:24)
[2019-03-09] MEDS: ATORVASTATIN 40 MG TAB PO SCH (20:48)
[2019-03-09] MEDS: GABAPENTIN 300 MG CAP PO SCH (20:49)
--- NOTE | 2019-03-09 22:31 | PN ---
PROGRESS NOTE DATE OF SERVICE: 03/09/2019 REASON FOR FOLLOWUP: Leukocytosis and secondary peritonitis. INTERVAL HISTORY: The patient did spike a fever last night of 102.4 degrees Fahrenheit. However, the patient has been afebrile since then. The patient mentioned he did not have any IV yesterday and could not get his medication or antibiotics. This morning the patient is afebrile. He did have abdominal pain, but no worsening compared to yesterday. Denies having any chest pain, shortness of breath or cough, and no urinary symptoms. PHYSICAL EXAMINATION: Blood pressure 142/68 with a pulse of 90, temperature 98.9. He is 91% on room air. General description is a middle-aged male lying in bed in no distress. RESPIRATORY SYSTEM: Unlabored breathing. Clear to auscultation anteriorly. HEART: S1, S2. Regular rate and rhythm. ABDOMEN: Soft. Mildly distended. No guarding or rigidity. LABS: Hemoglobin 11.9, white count 27.3, BUN of 14, creatinine 0.85. Blood and urine cultures so far negative. DIAGNOSTIC IMPRESSION AND PLAN: Patient with leukocytosis, likely abdominal source in this patient who did have an anastomosis leak and secondary peritonitis. Antibiotic has been adjusted cefepime and Flagyl and Diflucan; to continue, repeating his white count tomorrow. Plan of care was discussed with the nurse practitioner for the surgical team. MMODL / IJN: [id number] /
[2019-03-10] MEDS: metroNIDAZOLE-NS PMX 500 MG in SALINE 1 100ML.BAG IVPB SCH ×3 (00:30→15:15)
[2019-03-10] MEDS: HEPARIN SODIUM,PORCINE 5,000 UNIT/ML 1 ML VIAL SQ SCH ×3 (00:33→15:15)
[2019-03-10] MEDS: HYDROmorphone 1 MG/ML 1 ML SYRINGE IVP PRN ×6 (02:28→22:23)
[2019-03-10] MEDS: HYDROcodone/APAP 7.5-325MG 1 EACH TAB PO PRN ×2 (05:03→20:38)
[2019-03-10] MEDS: DEXTROSE 5%-0.45% NACL 1,000 ML IV SCH (05:04)
[2019-03-10 08:07] LABS: Basophils # (A) 0.1 k/uL (0-0.2); Basophils % (A) 0 %; Eosinophils # (A) 0.6 k/uL (0-0.7); Eosinophils % (A) 2 %; HCT 36.1 % (39.0-53.0); HGB 11.5 gm/dL (13.0-17.5); Lymphocytes # (A) 1.2 k/uL (1.0-4.8); Lymphocytes % (A) 5 %; MCHC 31.8 g/dL (31.0-37.0); MCV 94.4 fL (80.0-100.0); Mean Platelet Volume 9.1; Monocytes # (A) 2.6 k/uL (0-1.0); Monocytes % (A) 10 %; Neutrophils # (A) 20.6 k/uL (1.3-7.7); Neutrophils % (A) 80 %; Platelet Count 323 k/uL (150-450); RBC 3.82 m/uL (4.30-5.90); RDW 14.8 % (11.5-15.5); WBC 25.6 k/uL (3.8-10.6)
[2019-03-10] MEDS: PANTOPRAZOLE 40 MG/10 ML VIAL IVP SCH ×2 (08:11→20:38)
[2019-03-10 08:13] LABS: African American GFR (CKD) >90 (>60 ml/min/1.73 sqM); Anion Gap 8 mmol/L; Blood Urea Nitrogen 12 mg/dL (9-20); Calcium 8.7 mg/dL (8.4-10.2); Carbon Dioxide 26 mmol/L (22-30); Chloride 101 mmol/L (98-107); Glucose 80 mg/dL (74-99); Non-African American GFR(CKD) >90 (>60 ml/min/1.73 sqM); Potassium 4.2 mmol/L (3.5-5.1); Sodium 135 mmol/L (137-145)
[2019-03-10] MEDS: CEFEPIME 2 GM in SODIUM CHLORIDE 0.9% 100 ML IVPB SCH ×2 (09:19→20:38)
[2019-03-10] MEDS: IPRATROPIUM-ALBUTEROL 3 ML NEB INHALATION SCH ×4 (09:38→19:55)
[2019-03-10] MEDS: SYMBICORT 160-4.5 MCG INHALER INHALATION SCH ×2 (09:38→19:55)
[2019-03-10] MEDS: FLUCONAZOLE IN NACL,ISO-OSM 200 MG in SALINE 1 100ML.BAG IVPB SCH (10:08)
--- NOTE | 2019-03-10 11:14 | P.PN ---
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 However his hospital course was complicated by anastomotic leak and he underwent exploratory laparotomy with repair of the leak with diverting ileostomy on the right side, also status post lysis of adhesions. Today is postop day #1. His pain is better controlled in his abdomen, he has expected postsurgical discomfort/pain. G-tube is in a Place. Vitas looks stable. Labs showing leukocytosis with the SYSTEM[employer] LIBRARIAN 20.5 K, potassium 5.2, sodium 134 and creatinine 1.1. Patient remains on IV fluids, pain medication and also patient is on Zosyn. 03/08/2019 Patient today was complaining of from lower abdominal pain that responded partially to Dilaudid associated with nausea after opioid. His colostomy back have small amount of stool in it. Patient denies chest pain, dyspnea or dizziness however there is pink alert urine in his Richard catheter. With UA show ing urine RBC is 27. Other than that patient vitals showing patient is been afebrile since yesterday, last time he had fever was 03/06/2019 at 10 Fahrenheit. He has worsening leukocytosis today at 26.9. BMP looks his stable with mild hyponatremia at 135, potassium 4.9, creatinine normal 0.8. Patient currently remains on Zosyn. 03/09/2019 Patient NG tube was DC'd yesterday, he was started on a clear diet. No nausea vomiting, his abdominal pain is much better today with pain medication but serrated 3/10, his colostomy back in a Place with dark watery stool. His vitals are stable and he is [id number]% on 3 L oxygen. he has spiked a fever of 102.2 yesterday night.Richard catheter was discontinued yesterday and he is able to be. We will check residual urine.WBC is 27.3K,hemoglobin is stable at 11.9.urine cultures pending.infectious disease already evaluated the patient and their input is appreciated. Recommend May need to repeat CAT scan of the abdomen.antibiotics has been adjusted to cefepime and Flagyl 03/10/2019 Patient is doing better today, he is able to tolerate his diet, which is semisolid diet only. His abdominal pain at the surgical site is subsided and is better controlled. No nausea vomiting. Colostomy back in a Place and has dark- colored liquidy stool in it. No breathing problems. No fever. Vitals are stable and his saturating 95% in 3 L. Labs showing WBC start improving down from 27.3 to 25.6K, so CAT scan does not need to be done currently because patient showing improvement clinically and in his lab work as per my discussions with surgical team. However continue with the Antibiotics prescribed by the ID team including cefepime, Flagyl and fl uconazole. Urine culture: No growth. No fever since yesterday Objective - Vital Signs Vital signs: Vital Signs Temp 98.5 F 03/10/19 07:00 Pulse 88 03/10/19 09:53 Resp 18 03/10/19 07:00 BP 145/61 03/10/19 07:00 Pulse Ox 95 03/10/19 09:41 Intake & Output 03/09/19 03/10/19 03/10/19 18:59 06:59 18:59 Intake Total 700 100 Output Total 485 1020 Balance 215 -920 Weight 109.769 kg Intake: Intake, IV Titration 700 100 Amount Cefepime 2 gm In Sodium 100 100 Chloride 0.9% 100 ml @ 200 mls/hr IVPB Q12HR [facility] Rx#:[id number] Dextrose 5%-0.45% NaCl 1, 300 000 ml @ 50 mls/hr IV . Q20H [facility] Rx#:[id number] Fluconazole in NaCl,Iso- 100 Osm 200 mg In Saline 1 100ml.bag @ 100 mls/hr IVPB DAILY [facility] Rx#: [id number] Piperacillin-Tazobactam 3 100 .375 gm In Sodium Chloride 0.9% 100 ml @ 25 mls/hr IVPB Q8HR [facility] Rx# :[id number] metroNIDAZOLE-NS PMX 500 100 mg In Saline 1 100ml.bag @ 100 mls/hr IVPB Q8HR [facility] Rx#:[id number] Output: Drainage 10 70 Left Lower Abdomen 10 70 Urine 475 750 Stool 200 Other: Voiding Method Urinal Urinal # Voids 2 1 - Exam GENERAL: The patient is alert and oriented x3, not in any acute distress. Well developed, well nourished. HEENT: Pupils are round and equally reacting to light. EOMI. No scleral icterus. No conjunctival pallor. Normocephalic, atraumatic. No pharyngeal erythema. No thyromegaly. CARDIOVASCULAR: S1 and S2 present. No murmurs, rubs, or gallops. PULMONARY: Chest is clear to auscultation, no wheezing or crackles. -ABDOMEN: Soft, nontender, nondistended, normoactive bowel sounds. No palpable organomegaly. Right colostomy with semi-formed dark stool in the colostomy back. Richard catheter is in place MUSCULOSKELETAL: No joint swelling or deformity. EXTREMITIES: No cyanosis, clubbing, or pedal edema. NEUROLOGICAL: Gross neurological examination did not reveal any focal deficits. SKIN: No rashes. no petechiae. - Labs CBC & Chem 7: 03/10/19 07:18 03/10/19 07:18 Labs: Abnormal Lab Results - Last 24 Hours (Table) 03/10/19 03/10/19 Range/Units 07:18 07:18 WBC 25.6 H (3.8-10.6) k/uL RBC 3.82 L (4.30-5.90) m/uL Hgb 11.5 L (13.0-17.5) gm/dL Hct 36.1 L (39.0-53.0) % Neutrophils # 20.6 H (1.3-7.7) k/uL Monocytes # 2.6 H (0-1.0) k/uL Sodium 135 L (137-145) mmol/L Microbiology - Last 24 Hours (Table) 03/08/19 21:37 Blood Culture - Preliminary Blood No Growth after 24 hours 03/08/19 21:43 Blood Culture - Preliminary Blood No Growth after 24 hours 03/08/19 11:15 Urine Culture - Final Urine,Voided 03/06/19 18:38 Blood Culture - Preliminary Blood No Growth after 72 hours Assessment and Plan Assessment: -Recent history of bowel perforation 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 -Chronic obstructive pulmonary disease, not in acute exacerbation -Bilateral atelectasis -Mild hyponatremia -Hyperlipidemia -Nicotine dependence Plan: This is a pleasant 53 years old male who presents with reversal of colostomy, completed by leaking anastomosis status post anastomoses repair. Continue with pain management. change antibiotics as per ID team recommendation. Follow-up labs. Labs and medication were reviewed.. Continue same treatment. Continue with symptomatic treatment. Resume home medication. Monitor lytes and vitals. DVT and GI prophylaxis. Further recommendations of the clinical course of the patient DVT prophylaxis: Subcutaneous heparin GI Prophylaxis: Protonix PT/OT: Pending Prognosis is guarded Thank you for consulting us
--- NOTE | 2019-03-10 12:11 | P.PN ---
Subjective Progress Note Date: 03/10/19 CHIEF COMPLAINT: History of colonic perforation HISTORY OF PRESENT ILLNESS: Patient is status post reversal of colostomy performed on 03/03/2019. Patient is also status post exploratory laparotomy, washout of peritoneal cavity, repair of anastomotic leak, lysis of adhesions, and diverting ileostomy. Patient examined at the bedside. Patient reports his pain is tolerable at this time. He has been ambulating in the hallway. Ostomy with stool noted. Tolerating full liquid diet. WBC 25.6. No further episodes of fevers. PHYSICAL EXAM: VITAL SIGNS: Reviewed. GENERAL: Well-developed in no acute distress. HEENT: No sclera icterus. Extraocular movements grossly intact. Moist buccal mucosa. Head is atraumatic, normocephalic. ABDOMEN: Soft. Appropriate surgical tenderness. Ostomy to right lower quadrant with brown liquid stool. NEUROLOGIC: Alert and oriented. Cranial nerves II through XII grossly intact. ASSESSMENT: 1. History of colonic perforation, status post reversal of colostomy 2. Status post exploratory laparotomy, washout of peritoneal cavity, repair of anastomotic leak, lysis of adhesions, and diverting ileostomy PLAN: -Continue full liquid diet. Dr. Moralez does not want diet advanced today. -Increase activity as tolerated. -Incentive spirometer encouraged -Continue IV antibiotics. Monitor WBC. Infectious disease on consult. Nurse practitioner note has been reviewed by physician. Signing provider agrees with the documented findings, assessment, and plan of care. Objective - Vital Signs Vital signs: Vital Signs Temp 98.5 F 03/10/19 07:00 Pulse 88 03/10/19 09:53 Resp 18 03/10/19 07:00 BP 145/61 03/10/19 07:00 Pulse Ox 95 03/10/19 09:41 Intake & Output 03/09/19 03/10/19 03/10/19 18:59 06:59 18:59 Intake Total 700 100 Output Total 485 1020 Balance 215 -920 Weight 109.769 kg Intake: Intake, IV Titration 700 100 Amount Cefepime 2 gm In Sodium 100 100 Chloride 0.9% 100 ml @ 200 mls/hr IVPB Q12HR [facility] Rx#:[id number] Dextrose 5%-0.45% NaCl 1, 300 000 ml @ 50 mls/hr IV . Q20H [facility] Rx#:[id number] Fluconazole in NaCl,Iso- 100 Osm 200 mg In Saline 1 100ml.bag @ 100 mls/hr IVPB DAILY [facility] Rx#: [id number] Piperacillin-Tazobactam 3 100 .375 gm In Sodium Chloride 0.9% 100 ml @ 25 mls/hr IVPB Q8HR [facility] Rx# :[id number] metroNIDAZOLE-NS PMX 500 100 mg In Saline 1 100ml.bag @ 100 mls/hr IVPB Q8HR [facility] Rx#:[id number] Output: Drainage 10 70 Left Lower Abdomen 10 70 Urine 475 750 Stool 200 Other: Voiding Method Urinal Urinal # Voids 2 1 - Labs CBC & Chem 7: 03/10/19 07:18 03/10/19 07:18 Labs: Abnormal Lab Results - Last 24 Hours (Table) 03/10/19 03/10/19 Range/Units 07:18 07:18 WBC 25.6 H (3.8-10.6) k/uL RBC 3.82 L (4.30-5.90) m/uL Hgb 11.5 L (13.0-17.5) gm/dL Hct 36.1 L (39.0-53.0) % Neutrophils # 20.6 H (1.3-7.7) k/uL Monocytes # 2.6 H (0-1.0) k/uL Sodium 135 L (137-145) mmol/L Microbiology - Last 24 Hours (Table) 03/08/19 21:37 Blood Culture - Preliminary Blood No Growth after 24 hours 03/08/19 21:43 Blood Culture - Preliminary Blood No Growth after 24 hours 03/08/19 11:15 Urine Culture - Final Urine,Voided 03/06/19 18:38 Blood Culture - Preliminary Blood No Growth after 72 hours
[2019-03-10] MEDS: ALPRAZolam 1 MG TAB PO PRN ×2 (14:19→18:16)
[2019-03-10] MEDS: ATORVASTATIN 40 MG TAB PO SCH (20:38)
[2019-03-10] MEDS: GABAPENTIN 300 MG CAP PO SCH (20:38)
[2019-03-10] MEDS: LACTATED RINGERS 1,000 ML IV SCH (21:39)
--- NOTE | 2019-03-10 22:44 | PN ---
PROGRESS NOTE DATE OF SERVICE: 03/10/2019 REASON FOR FOLLOWUP: Secondary peritonitis. INTERVAL HISTORY: The patient is currently afebrile, has been complaining of some abdominal pain, but no worsening. No chest pain or shortness of breath or cough. No diarrhea. PHYSICAL EXAMINATION: Blood pressure is 144/87 with a pulse of 90, temperature 98.7. He is 90% on room air. General description is a middle-aged male lying in bed in no distress. RESPIRATORY SYSTEM: Unlabored breathing. Clear to auscultation anteriorly. HEART: S1, S2. Regular rate and rhythm. ABDOMEN: Soft. No tenderness. LABS: Hemoglobin 11.5, white count 25.6, BUN of 12, creatinine 0.78. DIAGNOSTIC IMPRESSION AND PLAN: Patient with secondary peritonitis from perforated anastomosis leak, status post repair. So far fever has resolved. White count is down today. Cultures currently pending. To continue with cefepime, Flagyl. Repeat a CBC tomorrow. Continue with supportive care. MMODL / IJN: [id number] / [place]
[2019-03-11] MEDS: metroNIDAZOLE-NS PMX 500 MG in SALINE 1 100ML.BAG IVPB SCH ×3 (00:09→15:10)
[2019-03-11] MEDS: HEPARIN SODIUM,PORCINE 5,000 UNIT/ML 1 ML VIAL SQ SCH ×3 (00:09→15:10)
[2019-03-11] MEDS: HYDROcodone/APAP 7.5-325MG 1 EACH TAB PO PRN ×3 (00:10→15:38)
[2019-03-11] MEDS: DEXTROSE 5%-0.45% NACL 1,000 ML IV SCH ×2 (00:19→15:11)
[2019-03-11] MEDS: HYDROmorphone 1 MG/ML 1 ML SYRINGE IVP PRN ×2 (02:32→07:42)
[2019-03-11] MEDS: ALPRAZolam 1 MG TAB PO PRN (05:50)
[2019-03-11 07:31] LABS: Basophils # (A) 0.1 k/uL (0-0.2); Basophils % (A) 0 %; Eosinophils # (A) 0.5 k/uL (0-0.7); Eosinophils % (A) 2 %; HGB 12.3 gm/dL (13.0-17.5); Lymphocytes # (A) 1.8 k/uL (1.0-4.8); Lymphocytes % (A) 7 %; MCH 29.6 pg (25.0-35.0); MCHC 31.5 g/dL (31.0-37.0); MCV 93.8 fL (80.0-100.0); Mean Platelet Volume 8.4; Monocytes % (A) 12 %; Neutrophils # (A) 19.5 k/uL (1.3-7.7); Neutrophils % (A) 76 %; Platelet Count 386 k/uL (150-450); RBC 4.16 m/uL (4.30-5.90); RDW 14.9 % (11.5-15.5); WBC 25.7 k/uL (3.8-10.6)
[2019-03-11 07:41] LABS: African American GFR (CKD) >90 (>60 ml/min/1.73 sqM); Anion Gap 7 mmol/L; Blood Urea Nitrogen 8 mg/dL (9-20); Calcium 8.6 mg/dL (8.4-10.2); Carbon Dioxide 28 mmol/L (22-30); Chloride 102 mmol/L (98-107); Glucose 103 mg/dL (74-99); Non-African American GFR(CKD) >90 (>60 ml/min/1.73 sqM); Potassium 3.8 mmol/L (3.5-5.1); Sodium 137 mmol/L (137-145)
[2019-03-11] MEDS: PANTOPRAZOLE 40 MG/10 ML VIAL IVP SCH ×2 (07:43→21:54)
[2019-03-11] MEDS: IPRATROPIUM-ALBUTEROL 3 ML NEB INHALATION SCH ×4 (08:08→20:20)
[2019-03-11] MEDS: SYMBICORT 160-4.5 MCG INHALER INHALATION SCH ×2 (08:08→20:20)
[2019-03-11] MEDS: CEFEPIME 2 GM in SODIUM CHLORIDE 0.9% 100 ML IVPB SCH ×2 (09:04→22:47)
[2019-03-11] MEDS: FLUCONAZOLE IN NACL,ISO-OSM 200 MG in SALINE 1 100ML.BAG IVPB SCH (09:54)
--- NOTE | 2019-03-11 11:55 | P.PN ---
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 However his hospital course was complicated by anastomotic leak and he underwent exploratory laparotomy with repair of the leak with diverting ileostomy on the right side, also status post lysis of adhesions. Today is postop day #1. His pain is better controlled in his abdomen, he has expected postsurgical discomfort/pain. G-tube is in a Place. Vitas looks stable. Labs showing leukocytosis with the [employer]LOROBUT[employer] SCRUBBER OPERATOR 20.5 K, potassium 5.2, sodium 134 and creatinine 1.1. Patient remains on IV fluids, pain medication and also patient is on Zosyn. 03/08/2019 Patient today was complaining of from lower abdominal pain that responded partially to Dilaudid associated with nausea after opioid. His colostomy back have small amount of stool in it. Patient denies chest pain, dyspnea or dizziness however there is pink alert urine in his Richard catheter. With UA show ing urine RBC is 27. Other than that patient vitals showing patient is been afebrile since yesterday, last time he had fever was 03/06/2019 at 10 Fahrenheit. He has worsening leukocytosis today at 26.9. BMP looks his stable with mild hyponatremia at 135, potassium 4.9, creatinine normal 0.8. Patient currently remains on Zosyn. 03/09/2019 Patient NG tube was DC'd yesterday, he was started on a clear diet. No nausea vomiting, his abdominal pain is much better today with pain medication but serrated 3/10, his colostomy back in a Place with dark watery stool. His vitals are stable and he is [id number]% on 3 L oxygen. he has spiked a fever of 102.2 yesterday night.Richard catheter was discontinued yesterday and he is able to be. We will check residual urine.WBC is 27.3K,hemoglobin is stable at 11.9.urine cultures pending.infectious disease already evaluated the patient and their input is appreciated. Recommend May need to repeat CAT scan of the abdomen.antibiotics has been adjusted to cefepime and Flagyl 03/10/2019 Patient is doing better today, he is able to tolerate his diet, which is semisolid diet only. His abdominal pain at the surgical site is subsided and is better controlled. No nausea vomiting. Colostomy back in a Place and has dark- colored liquidy stool in it. No breathing problems. No fever. Vitals are stable and his saturating 95% in 3 L. Labs showing WBC start improving down from 27.3 to 25.6K, so CAT scan does not need to be done currently because patient showing improvement clinically and in his lab work as per my discussions with surgical team. However continue with the Antibiotics prescribed by the ID team including cefepime, Flagyl and fl uconazole. Urine culture: No growth. No fever since yesterday 03/11/2019 Patient has less pain and surgical site, is still on clear liquid diet with no nausea vomiting, his colostomy is working with watery dark-colored stool. He still have significant leukocytosis of 25,000, patient still on cefepime, Flagyl and fluconazole as per ID team. Discussed the case with the surgical team, are going to keep the patient over the weekend for monitoring. Other than that patient says that he has no problem with urination and his urine is yellow, currently.. Objective - Vital Signs Vital signs: Vital Signs Temp 98.4 F 03/11/19 07:00 Pulse 80 03/11/19 08:18 Resp 18 03/11/19 07:00 BP 131/74 03/11/19 07:00 Pulse Ox 92 L 03/11/19 07:00 Intake & Output 03/10/19 03/11/19 03/11/19 18:59 06:59 18:59 Intake Total 950 Output Total 5 405 440 Balance -5 545 -440 Weight 109.769 kg Intake: Intake, IV Titration 800 Amount Cefepime 2 gm In Sodium 100 Chloride 0.9% 100 ml @ 200 mls/hr IVPB Q12HR [facility] Rx#:[id number] Dextrose 5%-0.45% NaCl 1, 600 000 ml @ 50 mls/hr IV . Q20H [facility] Rx#:[id number] metroNIDAZOLE-NS PMX 500 100 mg In Saline 1 100ml.bag @ 100 mls/hr IVPB Q8HR [facility] Rx#:[id number] Oral 150 Output: Drainage 5 5 0 Left Lower Abdomen 5 5 0 Urine 400 220 Post Void Residual 220 Other: Voiding Method Urinal Toilet Toilet Urinal # Voids 1 2 1 # Bowel Movements 1 - Exam GENERAL: The patient is alert and oriented x3, not in any acute distress. Well developed, well nourished. HEENT: Pupils are round and equally reacting to light. EOMI. No scleral icterus. No conjunctival pallor. Normocephalic, atraumatic. No pharyngeal erythema. No thyromegaly. CARDIOVASCULAR: S1 and S2 present. No murmurs, rubs, or gallops. PULMONARY: Chest is clear to auscultation, no wheezing or crackles. -ABDOMEN: Soft, nontender, nondistended, normoactive bowel sounds. No palpable organomegaly. Right colostomy with semi-formed dark stool in the colostomy back. Richard catheter is in place MUSCULOSKELETAL: No joint swelling or deformity. EXTREMITIES: No cyanosis, clubbing, or pedal edema. NEUROLOGICAL: Gross neurological examination did not reveal any focal deficits. SKIN: No rashes. no petechiae. - Labs CBC & Chem 7: 03/11/19 07:17 03/11/19 07:17 Labs: Abnormal Lab Results - Last 24 Hours (Table) 03/11/19 03/11/19 Range/Units 07:17 07:17 WBC 25.7 H (3.8-10.6) k/uL RBC 4.16 L (4.30-5.90) m/uL Hgb 12.3 L (13.0-17.5) gm/dL Neutrophils # 19.5 H (1.3-7.7) k/uL Monocytes # 3.0 H (0-1.0) k/uL BUN 8 L (9-20) mg/dL Glucose 103 H (74-99) mg/dL Microbiology - Last 24 Hours (Table) 03/08/19 21:43 Blood Culture - Preliminary Blood No Growth after 48 hours 03/08/19 21:37 Blood Culture - Preliminary Blood No Growth after 48 hours 03/06/19 18:38 Blood Culture - Preliminary Blood No Growth after 96 hours Assessment and Plan Assessment: -Recent history of bowel perforation 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 -Chronic obstructive pulmonary disease, not in acute exacerbation -Bilateral atelectasis -Mild hyponatremia -Hyperlipidemia -Nicotine dependence Plan: This is a pleasant 53 years old male who presents with reversal of colostomy, completed by leaking anastomosis status post anastomoses repair. Continue with pain management. change antibiotics as per ID team recommendation. Follow-up labs. Labs and medication were reviewed.. Continue same treatment. Continue with symptomatic treatment. Resume home medication. Monitor lytes and vitals. DVT and GI prophylaxis. Further recommendations of the clinical course of the patient DVT prophylaxis: Subcutaneous heparin GI Prophylaxis: Protonix PT/OT: Pending Prognosis is guarded Thank you for consulting us
--- NOTE | 2019-03-11 13:10 | P.PN ---
Subjective Progress Note Date: 03/11/19 CHIEF COMPLAINT: History of colonic perforation HISTORY OF PRESENT ILLNESS: Patient is status post reversal of colostomy performed on 03/03/2019. Patient is also status post exploratory laparotomy, washout of peritoneal cavity, repair of anastomotic leak, lysis of adhesions, and diverting ileostomy. Patient examined at the bedside. Patient reports his pain is tolerable at this time. tolerating diet without nausea or vomiting. Ostomy with stool noted. HEENT patient reports he has been ambulate in the hallway. Feeling at the bedside and is concerned regarding patient's pain and anxiety medications and feels that patient is being overmedicated. PHYSICAL EXAM: VITAL SIGNS: Reviewed. GENERAL: Well-developed in no acute distress. HEENT: No sclera icterus. Extraocular movements grossly intact. Moist buccal mucosa. Head is atraumatic, normocephalic. ABDOMEN: Soft. Appropriate surgical tenderness. Ostomy to right lower quadrant with brown liquid stool. NEUROLOGIC: Alert and oriented. Cranial nerves II through XII grossly intact. ASSESSMENT: 1. History of colonic perforation, status post reversal of colostomy 2. Status post exploratory laparotomy, washout of peritoneal cavity, repair of anastomotic leak, lysis of adhesions, and diverting ileostomy PLAN: -Continue full liquid diet. Dr. Moralez does not want diet advanced today. -Increase activity as tolerated. -Incentive spirometer encouraged -Continue IV antibiotics. Monitor WBC. Infectious disease on consult. -Discontinue IV Dilaudid -Continue Idabel every 4 hours as needed for pain -Patient currently has Xanax ordered every 4 hours as needed. Patient does not take any antianxiety medications prior to coming to the hospital. Patient states he is using it to help him rest. Will change frequency to 1 mg at nighttime only PRN -Continue to monitor WBC. If patients white count does not begin trending downward within 24-48 hours, Dr. Moralez recommends CT abdomen and pelvis with contrast to evaluate for possible abscess Nurse practitioner note has been reviewed by physician. Signing provider agrees with the documented findings, assessment, and plan of care. Objective - Vital Signs Vital signs: Vital Signs Temp 98.4 F 03/11/19 07:00 Pulse 88 03/11/19 12:12 Resp 18 03/11/19 07:00 BP 131/74 03/11/19 07:00 Pulse Ox 92 L 03/11/19 07:00 Intake & Output 03/10/19 03/11/19 03/11/19 18:59 06:59 18:59 Intake Total 950 Output Total 5 405 384 Balance -5 545 -384 Weight 109.769 kg Intake: Intake, IV Titration 800 Amount Cefepime 2 gm In Sodium 100 Chloride 0.9% 100 ml @ 200 mls/hr IVPB Q12HR [facility] Rx#:[id number] Dextrose 5%-0.45% NaCl 1, 600 000 ml @ 50 mls/hr IV . Q20H [facility] Rx#:[id number] metroNIDAZOLE-NS PMX 500 100 mg In Saline 1 100ml.bag @ 100 mls/hr IVPB Q8HR [facility] Rx#:[id number] Oral 150 Output: Drainage 5 5 0 Left Lower Abdomen 5 5 0 Urine 400 220 Post Void Residual 164 Other: Voiding Method Urinal Toilet Toilet Urinal # Voids 1 2 1 # Bowel Movements 1 - Labs CBC & Chem 7: 03/11/19 07:17 03/11/19 07:17 Labs: Abnormal Lab Results - Last 24 Hours (Table) 03/11/19 03/11/19 Range/Units 07:17 07:17 WBC 25.7 H (3.8-10.6) k/uL RBC 4.16 L (4.30-5.90) m/uL Hgb 12.3 L (13.0-17.5) gm/dL Neutrophils # 19.5 H (1.3-7.7) k/uL Monocytes # 3.0 H (0-1.0) k/uL BUN 8 L (9-20) mg/dL Glucose 103 H (74-99) mg/dL Microbiology - Last 24 Hours (Table) 03/08/19 21:43 Blood Culture - Preliminary Blood No Growth after 48 hours 03/08/19 21:37 Blood Culture - Preliminary Blood No Growth after 48 hours 03/06/19 18:38 Blood Culture - Preliminary Blood No Growth after 96 hours
[2019-03-11] MEDS: IBUPROFEN 600 MG TAB PO SCH ×2 (13:26→21:24)
--- NOTE | 2019-03-11 13:53 | PN ---
PROGRESS NOTE DATE OF SERVICE: 03/11/2019 REASON FOR FOLLOWUP: Leukocytosis abdominal source and secondary peritonitis. INTERVAL HISTORY: The patient is currently afebrile, patient has been breathing comfortably. Complaining of some pain in the right upper quadrant area, some nausea but no vomiting. Denies having any chest pain, shortness of breath. Occasional cough. PHYSICAL EXAMINATION: Blood pressure 131/74 with a pulse of 92, temperature 98.4. He is 92% on room air. General description is a middle-aged male, lying in bed in no distress. RESPIRATORY SYSTEM: Unlabored breathing. Decreased breath sounds at bases, no wheeze. HEART: S1, S2. Regular rate and rhythm. ABDOMEN: Soft, there is no guarding or rigidity. LABS: White count still elevated at 25.7 with BUN of 8, creatinine 0.72. DIAGNOSTIC IMPRESSION AND PLAN: Patient with secondary peritonitis with perforated anastomosis leak. The patient did have a fever and a composite elevated white count. At this time will keep the patient on cefepime, Flagyl discontinued. Diflucan and add vancomycin and monitor clinical course closely. MMODL / IJN: [id number] / MTDD
[2019-03-11] MEDS: LACTATED RINGERS 1,000 ML IV SCH (21:03)
[2019-03-11] MEDS: ATORVASTATIN 40 MG TAB PO SCH (21:25)
[2019-03-11] MEDS: GABAPENTIN 300 MG CAP PO SCH (21:25)
[2019-03-12] MEDS: HEPARIN SODIUM,PORCINE 5,000 UNIT/ML 1 ML VIAL SQ SCH ×4 (00:55→23:40)
[2019-03-12] MEDS: metroNIDAZOLE-NS PMX 500 MG in SALINE 1 100ML.BAG IVPB SCH ×2 (01:34→15:29)
[2019-03-12] MEDS: HYDROcodone/APAP 7.5-325MG 1 EACH TAB PO PRN ×3 (04:03→14:12)
[2019-03-12] MEDS ORDERED: VANCOMYCIN IV PER PHARMACY 1 EACH MISC MISCELLANE PRN (08:33)
[2019-03-12] MEDS: IPRATROPIUM-ALBUTEROL 3 ML NEB INHALATION SCH ×5 (08:34→19:56)
[2019-03-12] MEDS: SYMBICORT 160-4.5 MCG INHALER INHALATION SCH ×2 (08:34→19:54)
--- NOTE | 2019-03-12 10:13 | P.PN ---
Subjective Progress Note Date: 03/12/19 Principal diagnosis: Anastomotic leak Patient has been refusing medical care today. He was apparently having some difficulties with his IV last night and is very frustrated. IV is currently working however the patient is now refusing IV antibiotics. He has threatening to leave AGAINST MEDICAL ADVICE today. Relatively pleasant during my evaluation. Says he will reconsider allowing nursing staff to provide IV antibiotics. White blood cell count remains elevated in this post splenectomy patient. He is afebrile. Complaining of lower abdominal discomfort that seems to be improving. Ostomy is functioning. JASON drain is serous. Objective - Vital Signs Vital signs: Vital Signs Temp 98.2 F 03/12/19 07:00 Pulse 84 03/12/19 07:00 Resp 17 03/12/19 07:00 BP 129/74 03/12/19 07:00 Pulse Ox 94 L 03/12/19 07:00 Intake & Output 03/11/19 03/12/19 03/12/19 18:59 06:59 18:59 Output Total 684 Balance -684 Output: Drainage 0 Left Lower Abdomen 0 Urine 520 Post Void Residual 164 Other: Voiding Method Toilet Toilet Urinal Urinal # Voids 1 1 # Bowel Movements 1 1 - Exam Abdomen: Soft, mild distention, mild tenderness, dressings clean and dry, ostomy pink and functioning - Labs CBC & Chem 7: 03/11/19 07:17 03/11/19 07:17 Labs: Microbiology - Last 24 Hours (Table) 03/08/19 21:37 Blood Culture - Preliminary Blood No Growth after 72 hours 03/08/19 21:43 Blood Culture - Preliminary Blood No Growth after 72 hours 03/06/19 18:38 Blood Culture - Preliminary Blood No Growth after 120 hours Assessment and Plan (1) Anastomotic leak of intestine Narrative/Plan: Continue IV antibiotics. Ambulate. Monitor elevated white blood cell count. Will consider CT abdomen and pelvis if leukocytosis persists. Current Visit: Yes Status: Acute Code(s): K91.89 - OTH POSTPROCEDURAL COMPLICATIONS AND DISORDERS OF DGSTV SYS SNOMED Code(s): 229945459
[2019-03-12] MEDS: IBUPROFEN 600 MG TAB PO SCH ×3 (11:04→23:37)
[2019-03-12] MEDS: CEFEPIME 2 GM in SODIUM CHLORIDE 0.9% 100 ML IVPB SCH ×2 (11:05→22:17)
[2019-03-12] MEDS: metroNIDAZOLE 500 MG TAB PO SCH ×3 (11:05→23:38)
[2019-03-12] MEDS: VANCOMYCIN 1,750 MG in SODIUM CHLORIDE 0.9% 500 ML 500 ML IVPB SCH ×2 (11:06→18:35)
[2019-03-12] MEDS: PANTOPRAZOLE 40 MG/10 ML VIAL IVP SCH ×2 (11:06→21:02)
--- NOTE | 2019-03-12 11:09 | P.PN ---
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 However his hospital course was complicated by anastomotic leak and he underwent exploratory laparotomy with repair of the leak with diverting ileostomy on the right side, also status post lysis of adhesions. Today is postop day #1. His pain is better controlled in his abdomen, he has expected postsurgical discomfort/pain. G-tube is in a Place. Vitas looks stable. Labs showing leukocytosis with the RELIABILITY MANAGER 20.5 K, potassium 5.2, sodium 134 and creatinine 1.1. Patient remains on IV fluids, pain medication and also patient is on Zosyn. 03/08/2019 Patient today was complaining of from lower abdominal pain that responded partially to Dilaudid associated with nausea after opioid. His colostomy back have small amount of stool in it. Patient denies chest pain, dyspnea or dizziness however there is pink alert urine in his Richard catheter. With UA show ing urine RBC is 27. Other than that patient vitals showing patient is been afebrile since yesterday, last time he had fever was 03/06/2019 at 10 Fahrenheit. He has worsening leukocytosis today at 26.9. BMP looks his stable with mild hyponatremia at 135, potassium 4.9, creatinine normal 0.8. Patient currently remains on Zosyn. 03/09/2019 Patient NG tube was DC'd yesterday, he was started on a clear diet. No nausea vomiting, his abdominal pain is much better today with pain medication but serrated 3/10, his colostomy back in a Place with dark watery stool. His vitals are stable and he is % on 3 L oxygen. he has spiked a fever of 102.2 yesterday night.Richard catheter was discontinued yesterday and he is able to be. We will check residual urine.WBC is 27.3K,hemoglobin is stable at 11.9.urine cultures pending.infectious disease already evaluated the patient and their input is appreciated. Recommend May need to repeat CAT scan of the abdomen.antibiotics has been adjusted to cefepime and Flagyl 03/10/2019 Patient is doing better today, he is able to tolerate his diet, which is semisolid diet only. His abdominal pain at the surgical site is subsided and is better controlled. No nausea vomiting. Colostomy back in a Place and has dark- colored liquidy stool in it. No breathing problems. No fever. Vitals are stable and his saturating 95% in 3 L. Labs showing WBC start improving down from 27.3 to 25.6K, so CAT scan does not need to be done currently because patient showing improvement clinically and in his lab work as per my discussions with surgical team. However continue with the Antibiotics prescribed by the ID team including cefepime, Flagyl and fl uconazole. Urine culture: No growth. No fever since yesterday 03/11/2019 Patient has less pain and surgical site, is still on clear liquid diet with no nausea vomiting, his colostomy is working with watery dark-colored stool. He still have significant leukocytosis of 25,000, patient still on cefepime, Flagyl and fluconazole as per ID team. Discussed the case with the surgical team, are going to keep the patient over the weekend for monitoring. Other than that patient says that he has no problem with urination and his urine is yellow, currently.. 03/12/2019 Patient didn't have appetite so he didn't eat his breakfast This morning, however he has no nausea vomiting and his abdominal pain is minimal as 2/10 in severity. This colostomy bag is still with watery stool.he has persistent le ukocytosis. Repeat labs this morning are still pending.patient had some difficulty replacing his IV line, currently his IV line is replaced and staff will provide antibiotics today to which he is agreeable.cefepime, Flagyl and fluconazole. Objective - Vital Signs Vital signs: Vital Signs Temp 98.2 F 03/12/19 07:00 Pulse 84 03/12/19 07:00 Resp 17 03/12/19 07:00 BP 129/74 03/12/19 07:00 Pulse Ox 94 L 03/12/19 07:00 Intake & Output 03/11/19 03/12/19 03/12/19 18:59 06:59 18:59 Output Total 684 Balance -684 Output: Drainage 0 Left Lower Abdomen 0 Urine 520 Post Void Residual 164 Other: Voiding Method Toilet Toilet Urinal Urinal # Voids 1 1 # Bowel Movements 1 1 - Exam GENERAL: The patient is alert and oriented x3, not in any acute distress. Well developed, well nourished. HEENT: Pupils are round and equally reacting to light. EOMI. No scleral icterus. No conjunctival pallor. Normocephalic, atraumatic. No pharyngeal erythema. No thyromegaly. CARDIOVASCULAR: S1 and S2 present. No murmurs, rubs, or gallops. PULMONARY: Chest is clear to auscultation, no wheezing or crackles. -ABDOMEN: Soft, nontender, nondistended, normoactive bowel sounds. No palpable organomegaly. Right colostomy with semi-formed dark stool in the colostomy back. Richard catheter is in place MUSCULOSKELETAL: No joint swelling or deformity. EXTREMITIES: No cyanosis, clubbing, or pedal edema. NEUROLOGICAL: Gross neurological examination did not reveal any focal deficits. SKIN: No rashes. no petechiae. 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 -Chronic obstructive pulmonary disease, not in acute exacerbation -Bilateral atelectasis -Mild hyponatremia -Hyperlipidemia -Nicotine dependence Plan: This is a pleasant 53 years old male who presents with reversal of colostomy, completed by leaking anastomosis status post anastomoses repair. Continue with pain management. change antibiotics as per ID team recommendation. Follow-up labs. Labs and medication were reviewed.. Continue same treatment. Continue with symptomatic treatment. Resume home medication. Monitor lytes and vitals. DVT and GI prophylaxis. Further recommendations of the clinical course of the patient DVT prophylaxis: Subcutaneous heparin GI Prophylaxis: Protonix PT/OT: Pending Prognosis is guarded Thank you for consulting us
[2019-03-12] MEDS: HYDROcodone/APAP 10-325MG 1 EACH TAB PO PRN ×2 (18:36→23:38)
[2019-03-12] MEDS: DEXTROSE 5%-0.45% NACL 1,000 ML IV SCH (20:55)
[2019-03-12] MEDS: LACTATED RINGERS 1,000 ML IV SCH (20:56)
[2019-03-12] MEDS: GABAPENTIN 300 MG CAP PO SCH (21:01)
[2019-03-12] MEDS: ATORVASTATIN 40 MG TAB PO SCH (21:01)
[2019-03-12] MEDS: DEXTROSE 5%-0.9% NACL 1,000 ML IV SCH (23:43)
[2019-03-13] MEDS: VANCOMYCIN 1,750 MG in SODIUM CHLORIDE 0.9% 500 ML 500 ML IVPB SCH ×3 (01:11→17:43)
[2019-03-13] MEDS: HYDROcodone/APAP 10-325MG 1 EACH TAB PO PRN ×4 (04:03→19:58)
[2019-03-13 07:15] LABS: Basophils # (A) 0.4 k/uL (0-0.2); Basophils % (A) 1 %; Eosinophils # (A) 0.6 k/uL (0-0.7); Eosinophils % (A) 2 %; HCT 36.3 % (39.0-53.0); HGB 11.5 gm/dL (13.0-17.5); Lymphocytes # (A) 1.8 k/uL (1.0-4.8); Lymphocytes % (A) 6 %; MCHC 31.6 g/dL (31.0-37.0); MCV 94.8 fL (80.0-100.0); Mean Platelet Volume 8.5; Monocytes # (A) 1.9 k/uL (0-1.0); Monocytes % (A) 6 %; Neutrophils # (A) 26.8 k/uL (1.3-7.7); Neutrophils % (A) 83 %; Platelet Count 628 k/uL (150-450); RBC 3.83 m/uL (4.30-5.90); WBC 32.4 k/uL (3.8-10.6)
[2019-03-13 07:28] LABS: African American GFR (CKD) >90 (>60 ml/min/1.73 sqM); Anion Gap 8 mmol/L; Blood Urea Nitrogen 10 mg/dL (9-20); Calcium 8.6 mg/dL (8.4-10.2); Carbon Dioxide 25 mmol/L (22-30); Chloride 104 mmol/L (98-107); Glucose 93 mg/dL (74-99); Non-African American GFR(CKD) >90 (>60 ml/min/1.73 sqM); Potassium 3.8 mmol/L (3.5-5.1); Sodium 137 mmol/L (137-145)
[2019-03-13] MEDS: HEPARIN SODIUM,PORCINE 5,000 UNIT/ML 1 ML VIAL SQ SCH ×3 (07:57→23:22)
[2019-03-13] MEDS: metroNIDAZOLE 500 MG TAB PO SCH ×3 (07:57→23:13)
[2019-03-13] MEDS: CEFEPIME 2 GM in SODIUM CHLORIDE 0.9% 100 ML IVPB SCH (07:57)
[2019-03-13] MEDS: PANTOPRAZOLE 40 MG/10 ML VIAL IVP SCH ×2 (07:58→23:14)
[2019-03-13] MEDS: SYMBICORT 160-4.5 MCG INHALER INHALATION SCH ×2 (08:30→20:22)
[2019-03-13] MEDS: IPRATROPIUM-ALBUTEROL 3 ML NEB INHALATION SCH ×4 (08:30→20:22)
[2019-03-13] MEDS: IBUPROFEN 600 MG TAB PO SCH ×2 (09:36→16:29)
--- NOTE | 2019-03-13 10:48 | P.PN ---
Subjective Progress Note Date: 03/13/19 Principal diagnosis: Anastomotic leak patient doing much better than yesterday. His pain is better controlled. He is afebrile. No tachycardia. White blood cell count increased further to 32. Infectious disease requesting CAT scan which was the initial plan. He is tolerating his diet. Good ostomy function. Objective - Vital Signs Vital signs: Vital Signs Temp 98.3 F 03/13/19 07:00 Pulse 78 03/13/19 08:40 Resp 18 03/13/19 08:40 BP 137/81 03/13/19 07:00 Pulse Ox 92 L 03/13/19 07:00 Intake & Output 03/12/19 03/13/19 03/13/19 18:59 06:59 18:59 Intake Total 1480 650 Output Total 805 300 200 Balance 675 -300 450 Intake: Intake, IV Titration 200 Amount Cefepime 2 gm In Sodium 200 Chloride 0.9% 100 ml @ 200 mls/hr IVPB Q12HR [facility] Rx#:[id number] Oral 1280 650 Output: Drainage 5 Left Lower Abdomen 5 Urine 700 Stool 100 300 200 Other: Voiding Method Toilet Toilet Toilet Urinal Urinal Urinal # Voids 2 2 3 # Bowel Movements 1 - Exam abdomen: Soft, mild distention, dressing clean and dry, ostomy pink and functioning - Labs CBC & Chem 7: 03/13/19 06:54 03/13/19 06:54 Labs: Abnormal Lab Results - Last 24 Hours (Table) 03/13/19 03/13/19 Range/Units 06:54 06:54 WBC 32.4 H (3.8-10.6) k/uL RBC 3.83 L (4.30-5.90) m/uL Hgb 11.5 L (13.0-17.5) gm/dL Hct 36.3 L (39.0-53.0) % Plt Count 628 H (150-450) k/uL Neutrophils # 26.8 H (1.3-7.7) k/uL Monocytes # 1.9 H (0-1.0) k/uL Basophils # 0.4 H (0-0.2) k/uL Creatinine 0.57 L (0.66-1.25) mg/dL Microbiology - Last 24 Hours (Table) 03/08/19 21:43 Blood Culture - Preliminary Blood No Growth after 96 hours 03/08/19 21:37 Blood Culture - Preliminary Blood No Growth after 96 hours 03/06/19 18:38 Blood Culture - Final Blood No Growth after 144 hours Assessment and Plan (1) Anastomotic leak of intestine Narrative/Plan: Will check CT abdomen and pelvis today. Continue antibiotics. Ambulate. Continue diet as tolerated. Current Visit: Yes Status: Acute Code(s): K91.89 - OTH POSTPROCEDURAL COMPLICATIONS AND DISORDERS OF DGSTV SYS SNOMED Code(s): 376043903
[2019-03-13] MEDS: IOPAMIDOL CONTRAST (ORAL USE) VIAL PO PRN ×2 (11:05→12:08)
--- NOTE | 2019-03-13 13:20 | P.PN ---
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 However his hospital course was complicated by anastomotic leak and he underwent exploratory laparotomy with repair of the leak with diverting ileostomy on the right side, also status post lysis of adhesions. Today is postop day #1. His pain is better controlled in his abdomen, he has expected postsurgical discomfort/pain. G-tube is in a Place. Vitas looks stable. Labs showing leukocytosis with the DATA ANALYST ETL DEVELOPER 20.5 K, potassium 5.2, sodium 134 and creatinine 1.1. Patient remains on IV fluids, pain medication and also patient is on Zosyn. 03/08/2019 Patient today was complaining of from lower abdominal pain that responded partially to Dilaudid associated with nausea after opioid. His colostomy back have small amount of stool in it. Patient denies chest pain, dyspnea or dizziness however there is pink alert urine in his Richard catheter. With UA show ing urine RBC is 27. Other than that patient vitals showing patient is been afebrile since yesterday, last time he had fever was 03/06/2019 at 10 Fahrenheit. He has worsening leukocytosis today at 26.9. BMP looks his stable with mild hyponatremia at 135, potassium 4.9, creatinine normal 0.8. Patient currently remains on Zosyn. 03/09/2019 Patient NG tube was DC'd yesterday, he was started on a clear diet. No nausea vomiting, his abdominal pain is much better today with pain medication but serrated 3/10, his colostomy back in a Place with dark watery stool. His vitals are stable and he is [id number]% on 3 L oxygen. he has spiked a fever of 102.2 yesterday night.Richard catheter was discontinued yesterday and he is able to be. We will check residual urine.WBC is 27.3K,hemoglobin is stable at 11.9.urine cultures pending.infectious disease already evaluated the patient and their input is appreciated. Recommend May need to repeat CAT scan of the abdomen.antibiotics has been adjusted to cefepime and Flagyl 03/10/2019 Patient is doing better today, he is able to tolerate his diet, which is semisolid diet only. His abdominal pain at the surgical site is subsided and is better controlled. No nausea vomiting. Colostomy back in a Place and has dark- colored liquidy stool in it. No breathing problems. No fever. Vitals are stable and his saturating 95% in 3 L. Labs showing WBC start improving down from 27.3 to 25.6K, so CAT scan does not need to be done currently because patient showing improvement clinically and in his lab work as per my discussions with surgical team. However continue with the Antibiotics prescribed by the ID team including cefepime, Flagyl and fl uconazole. Urine culture: No growth. No fever since yesterday 03/11/2019 Patient has less pain and surgical site, is still on clear liquid diet with no nausea vomiting, his colostomy is working with watery dark-colored stool. He still have significant leukocytosis of 25,000, patient still on cefepime, Flagyl and fluconazole as per ID team. Discussed the case with the surgical team, are going to keep the patient over the weekend for monitoring. Other than that patient says that he has no problem with urination and his urine is yellow, currently.. 03/12/2019 Patient didn't have appetite so he didn't eat his breakfast This morning, however he has no nausea vomiting and his abdominal pain is minimal as 2/10 in severity. This colostomy bag is still with watery stool.he has persistent le ukocytosis. Repeat labs this morning are still pending.patient had some difficulty replacing his IV line, currently his IV line is replaced and staff will provide antibiotics today to which he is agreeable.cefepime, Flagyl and fluconazole.\\ 03/13/2019 patient is lying in his incliner, fully awake and oriented. Not in distress.his abdominal pain is minimal, however colostomy back is with watery dark-colored stool. He is tolerating solid diet with no nausea vomiting.today leukocytosis went up to 30 2.4K.most likely from intra-abdominal source as patient has no urinary orpulmonary symptoms or rash.surgical primary team R ordering CT of the abdomen and pelvis today for further evaluation Objective - Vital Signs Vital signs: Vital Signs Temp 98.3 F 03/13/19 07:00 Pulse 78 03/13/19 08:40 Resp 18 03/13/19 08:40 BP 137/81 12/15/19 07:00 Pulse Ox 92 L 03/13/19 07:00 Intake & Output 03/12/19 03/13/19 03/13/19 18:59 06:59 18:59 Intake Total 1480 650 Output Total 805 300 200 Balance 675 -300 450 Intake: Intake, IV Titration 200 Amount Cefepime 2 gm In Sodium 200 Chloride 0.9% 100 ml @ 200 mls/hr IVPB Q12HR [facility] Rx#:[id number] Oral 1280 650 Output: Drainage 5 Left Lower Abdomen 5 Urine 700 Stool 100 300 200 Other: Voiding Method Toilet Toilet Toilet Urinal Urinal Urinal # Voids 2 2 3 # Bowel Movements 1 - Exam GENERAL: The patient is alert and oriented x3, not in any acute distress. Well developed, well nourished. HEENT: Pupils are round and equally reacting to light. EOMI. No scleral icterus. No conjunctival pallor. Normocephalic, atraumatic. No pharyngeal erythema. No thyromegaly. CARDIOVASCULAR: S1 and S2 present. No murmurs, rubs, or gallops. PULMONARY: Chest is clear to auscultation, no wheezing or crackles. -ABDOMEN: Soft, nontender, nondistended, normoactive bowel sounds. No palpable organomegaly. Right colostomy with semi-formed dark stool in the colostomy back. Richard catheter is in place MUSCULOSKELETAL: No joint swelling or deformity. EXTREMITIES: No cyanosis, clubbing, or pedal edema. NEUROLOGICAL: Gross neurological examination did not reveal any focal deficits. SKIN: No rashes. no petechiae. - Labs CBC & Chem 7: 03/13/19 06:54 03/13/19 06:54 Labs: Abnormal Lab Results - Last 24 Hours (Table) 03/13/19 03/13/19 Range/Units 06:54 06:54 WBC 32.4 H (3.8-10.6) k/uL RBC 3.83 L (4.30-5.90) m/uL Hgb 11.5 L (13.0-17.5) gm/dL Hct 36.3 L (39.0-53.0) % Plt Count 628 H (150-450) k/uL Neutrophils # 26.8 H (1.3-7.7) k/uL Monocytes # 1.9 H (0-1.0) k/uL Basophils # 0.4 H (0-0.2) k/uL Creatinine 0.57 L (0.66-1.25) mg/dL Microbiology - Last 24 Hours (Table) 03/08/19 21:43 Blood Culture - Preliminary Blood No Growth after 96 hours 03/08/19 21:37 Blood Culture - Preliminary Blood No Growth after 96 hours 03/06/19 18:38 Blood Culture - Final Blood No Growth after 144 hours Assessment and Plan Assessment: -Recent history of bowel perforation 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 -systemic inflammatory response with fever and leukocytosis -Sepsis secondary to above -Mild hematuria, recheck urinalysis and urine culture -Systemic inflammatory response with leukocytosis and fever, possible sepsis. -Chronic obstructive pulmonary disease, not in acute exacerbation -Bilateral atelectasis -Mild hyponatremia -Hyperlipidemia -Nicotine dependence Plan: This is a pleasant 53 years old male who presents with reversal of colostomy, completed by leaking anastomosis status post anastomoses repair. Continue with pain management. change antibiotics as per ID team recommendation. surgical team are ordered a CT of the abdomen and pelvis Follow-up labs. Labs and medication were reviewed.. Continue same treatment. Continue with symptomatic treatment. Resume home medication. Monitor lytes and vitals. DVT and GI prophylaxis. Further recommendations of the clinical course of the patient DVT prophylaxis: Subcutaneous heparin GI Prophylaxis: Protonix PT/OT: Pending Prognosis is guarded Thank you for consulting us
--- NOTE | 2019-03-13 13:50 | CT ---
EXAMINATION TYPE: CT abdomen pelvis w con DATE OF EXAM: 03/13/2019 REFERENCE: Previous study dated 03/06/2019 HISTORY: elevated white blood cell count post-colectomy HISTORY: Continued abdominal pain post colostomy. CT DLP: 2729.4 mGy Automated exposure control for dose reduction was used. TECHNIQUE: Helical acquisition through the abdomen and pelvis was obtained following the oral ingesti on of with Oral Contrast and following intravenous administration of 100 mL of Isovue 300. The data w as reformatted in axial, coronal and sagittal projections. FINDINGS: There are bilateral effusions. These have increased from previous. There is atelectatic ch brenda at the lung bases. There is no pericardial fluid. The heart is mildly enlarged. Within the abdomen, the liver is mildly prominent measuring 18 cm. The gallbladder is unremarkable. T he spleen is not visualized. There is thickening of both adrenal glands. There is a 2 cm adrenal mass on the left. There is a 2.5 cm simple appearing right renal cyst and a 3.4 cm simple appearing left renal cyst. Le ft upper Pole renal mass is not as well seen on this examination but is still present and measures 2. 9 cm.. The pancreas is unremarkable. There is no significant retroperitoneal, iliac or inguinal adenopathy. There is thickening of the bladder wall which may be due to lack of distention or cystitis. There is been a proximal sigmoid resection. There is no significant diverticular change and there is no radiographic evidence of diverticulitis. The appendix is not visualized. There is a surgical drain present within the pelvis. The jejunostomy present in the right lower quadrant. There is evidence of recent surgery with metalli c skin sutures in place. There is some bubbles of air present within the surgical suture site. There has been a marked decrease in amount of intraperitoneal air. A few bubbles of intraperitoneal a ir are still present. There is some thickening of the small bowel loops leading to the ostomy. There is mild anasarca, greater on the right than the left. There is degenerative disc disease and hypertrophic spondylosis within the spine. IMPRESSION: 1. BILATERAL PLEURAL EFFUSIONS, SLIGHTLY GREATER ON THE LEFT RIGHT. 2. MARKED REDUCTION IN THE AMOUNT OF FREE AIR WITH SOME SMALL BUBBLES REMAINING. 3. THICKENING OF THE SMALL BOWEL LOOPS LEADING TO THE PATIENT'S OSTOMY. 4. BLADDER WALL THICKENING WHICH MAY BE ON THE BASIS OF LACK OF DISTENTION OR CHRONIC BLADDER OUTLET OBSTRUCTION. 5. POSTSURGICAL CHANGE INCLUDING A PELVIC DRAIN. 6. MILD, GENERALIZED ANASARCA. 7. DEGENERATIVE CHANGES WITHIN THE SPINE.
[2019-03-13] MEDS ORDERED: VANCOMYCIN TROUGH DUE 1 EACH MISC MISCELLANE ONE (16:00)
[2019-03-13] MEDS ORDERED: ANIDULAFUNGIN 200 MG in SODIUM CHLORIDE 0.9% 200 ML IVPB ONE (18:00)
[2019-03-13] MEDS: PIPERACILLIN-TAZOBACTAM 3.375 GM in SODIUM CHLORIDE 0.9% 100 ML IVPB SCH (18:21)
[2019-03-13] MEDS: LACTATED RINGERS 1,000 ML IV SCH (19:37)
[2019-03-13] MEDS: GABAPENTIN 300 MG CAP PO SCH (19:58)
[2019-03-13] MEDS: ATORVASTATIN 40 MG TAB PO SCH (19:58)
[2019-03-13] MEDS: DEXTROSE 5%-0.9% NACL 1,000 ML IV SCH (20:03)
--- NOTE | 2019-03-13 23:16 | PN ---
PROGRESS NOTE REASON FOR FOLLOWUP: 1. Secondary peritonitis. 2. Persistent elevated white count. INTERVAL HISTORY: The patient is currently afebrile. The patient has been breathing comfortably. The patient denies having any chest pain or shortness of breath. Occasional cough. The patient's abdominal pain has improved. No nausea, vomiting and did have high output in his ileostomy bag. PHYSICAL EXAMINATION: Blood pressure 132/75 with a pulse of 83, temperature 98.5. He is 93% on room air. General description is a middle-aged male lying in bed in no distress. HEENT: Shows slight pallor. No scleral icterus. Oral mucosa membranes moist. Neck trachea central. No thyromegaly. Lungs unlabored breathing. Decreased breath sounds at the bases. No wheeze. Heart S1, S2. Regular rate and rhythm. ABDOMEN: Soft. Slightly distended. No guarding or rigidity. Extremities: No edema of the feet. LABS: Hemoglobin 11.5, white count 32.4 with a BUN of 10, creatinine 0.57. Blood culture has been negative. CT abdominal and pelvis did not show evidence of any perforation or abscess. DIAGNOSTIC IMPRESSION AND PLAN: Patient with secondary peritonitis in this patient who did have an anastomosed leak status post diverting ileostomy and repair of the leak with persistent elevated white count. A CT was done did not show any evidence of abscess perforation. At this time antibiotic will be switched to Zosyn and we will add Eraxis. Discontinue vancomycin and repeat CBC tomorrow. The patient likely need midline for outpatient IV antibiotic therapy. Will monitor his clinical course closely. MMODL / IJN: [id number] / [facility]ITAL[facility]
[2019-03-14] MEDS: IBUPROFEN 600 MG TAB PO SCH ×5 (01:03→20:42)
[2019-03-14] MEDS: HYDROcodone/APAP 10-325MG 1 EACH TAB PO PRN ×4 (03:08→20:33)
[2019-03-14] MEDS: PIPERACILLIN-TAZOBACTAM 3.375 GM in SODIUM CHLORIDE 0.9% 100 ML IVPB SCH ×3 (03:13→15:12)
[2019-03-14] MEDS: ACETAMINOPHEN TAB 325 MG TAB PO PRN (04:56)
[2019-03-14] MEDS: metroNIDAZOLE 500 MG TAB PO SCH ×3 (07:36→20:32)
[2019-03-14] MEDS: PANTOPRAZOLE 40 MG/10 ML VIAL IVP SCH (07:36)
[2019-03-14] MEDS: HEPARIN SODIUM,PORCINE 5,000 UNIT/ML 1 ML VIAL SQ SCH ×3 (07:36→20:46)
[2019-03-14] MEDS: DEXTROSE 5%-0.9% NACL 1,000 ML IV SCH (07:37)
[2019-03-14] MEDS: ANIDULAFUNGIN 100 MG in SODIUM CHLORIDE 0.9% 100 ML IVPB SCH (08:56)
[2019-03-14] MEDS: IPRATROPIUM-ALBUTEROL 3 ML NEB INHALATION SCH ×4 (08:57→20:23)
[2019-03-14] MEDS: SYMBICORT 160-4.5 MCG INHALER INHALATION SCH ×2 (08:57→20:23)
--- NOTE | 2019-03-14 12:23 | PN ---
PROGRESS NOTE DATE OF SERVICE: 03/14/2019 REASON FOR FOLLOWUP: Secondary peritonitis and leukocytosis. INTERVAL HISTORY: The patient is currently afebrile. The patient is breathing comfortably. Denies having any chest pain. Occasional cough. The patient complaining of midline abdominal pain, more of a dull aching pain, but no worsening compared to yesterday. Some nausea but no vomiting. Did have output in his ileostomy bag. Richard was discontinued. The patient denies any urinary symptom at this point. PHYSICAL EXAMINATION: Blood pressure is 134/76, pulse of 81, temperature 98.3. He is 93% on room air. General description is a middle-aged male lying in bed in no distress. RESPIRATORY SYSTEM: Unlabored breathing, clear to auscultation anteriorly. HEART: S1, S2. Regular rate and rhythm. ABDOMEN: Soft, mildly distended. No guarding or rigidity. EXTREMITIES: No edema of the feet. LABS: No new labs have been obtained today as the patient refused a blood draw this morning. DIAGNOSTIC IMPRESSION AND PLAN: Patient with secondary peritonitis from anastomosis leak, status post laparotomy, repair of the leak and diverting ileostomy. Unfortunately no OR cultures. Blood culture has been negative. The patient's antibiotics were adjusted yesterday to Eraxis and Zosyn in view of the persistent elevated white count despite being on cefepime, Flagyl and vancomycin. Unfortunately, the patient refused any blood draw this morning to see the efficacy of change of antibiotic yesterday. The patient remains to be afebrile and has been demanding to be transferred to [facility]. Recommend keeping the patient on these antibiotics while the patient evaluated by the ID service at that facility. Continue with supportive care. MMODL / IJN: [id number] / [facility]
[2019-03-14 13:21] LABS: Basophils # (A) 0.2 k/uL (0-0.2); Basophils % (A) 1 %; Eosinophils # (A) 0.5 k/uL (0-0.7); Eosinophils % (A) 2 %; HCT 36.5 % (39.0-53.0); HGB 11.4 gm/dL (13.0-17.5); Lymphocytes # (A) 1.8 k/uL (1.0-4.8); Lymphocytes % (A) 6 %; MCH 29.1 pg (25.0-35.0); MCHC 31.2 g/dL (31.0-37.0); MCV 93.3 fL (80.0-100.0); Monocytes # (A) 1.3 k/uL (0-1.0); Monocytes % (A) 4 %; Neutrophils # (A) 27.3 k/uL (1.3-7.7); Neutrophils % (A) 85 %; Platelet Count 710 k/uL (150-450); RBC 3.92 m/uL (4.30-5.90); RDW 15.2 % (11.5-15.5)
[2019-03-14 13:50] LABS: ALT 11 U/L (4-49); AST 23 U/L (17-59); African American GFR (CKD) >90 (>60 ml/min/1.73 sqM); Albumin 2.5 g/dL (3.5-5.0); Alkaline Phosphatase 326 U/L (38-126); Anion Gap 8 mmol/L; Blood Urea Nitrogen 7 mg/dL (9-20); Calcium 8.6 mg/dL (8.4-10.2); Carbon Dioxide 26 mmol/L (22-30); Chloride 102 mmol/L (98-107); Glucose 97 mg/dL (74-99); Non-African American GFR(CKD) >90 (>60 ml/min/1.73 sqM); Potassium 3.8 mmol/L (3.5-5.1); Sodium 136 mmol/L (137-145); Total Bilirubin 0.9 mg/dL (0.2-1.3); Total Protein 5.5 g/dL (6.3-8.2)
--- NOTE | 2019-03-14 14:02 | P.TRANS ---
Providers Date of admission: 03/03/19 07:50 Expected date of discharge: 03/14/19 Attending physician: Franck Moralez Consults: 03/03/19 11:42 Consult Physician Routine Consulting Provider: Vitor Zimmerman Consult Reason/Comments: Medical management Do you want consulting provider notified?: Yes 03/08/19 08:51 Consult Physician Urgent Consulting Provider: Laura Morin Consult Reason/Comments: Leukocytosis, status post bowel leak Do you want consulting provider notified?: Yes Primary care physician: Charron [facility] Hospital Course: 53-year-old male who has a history of colonic perforation who underwent reversal of colostomy on 03/03/2019. Patient also underwent exploratory laparotomy, washout of peritoneal cavity, repair of anastomotic leak, lysis of adhesions, and diverting ileostomy. Patient has been doing well postoperatively. He is tolerating diet. Ostomy is functioning. Vitals have been stable. However, WBC continues to trend upward. Patient has been receiving IV antibiotics and has been followed by infectious disease during hospitalization. Repeat CT negative for abscess. Patient and family very frustrated with overall progress and are requesting to be transferred to another facility. Dr. Moralez spoke with patient and family at the bedside. He is agreeable to transfer to [facility] per patient request. Discharge Diagnosis: 1. History of colonic perforation, status post reversal of colostomy 2. Status post exploratory laparotomy, washout of peritoneal cavity, repair of anastomotic leak, lysis of adhesions, and diverting ileostomy Nurse practitioner note has been reviewed by physician. Signing provider agrees with the documented findings, assessment, and plan of care. Health Concerns: Abdominal incision care: Last Pouching ileostomy System Date: 03.08.2019 Supplies for home for Ileostomy provided by the Hospital: Convatec one piece cut to fit with filter #[id number] [facility] No sting prep pads (10) Osotmy powder (1) Yevgeniy to empty the pouching system when 1/3 to 1/2 full Entire changing of pouching system every 3-5 days Yevgeniy will also be receiving supplies from [place] for home in 3-6 days after discharge as requested Plan - Transfer Summary Transfer Medications: Active Medications Generic Name Dose Route Start Last Admin Trade Name Freq PRN Reason Stop Dose Admin Acetaminophen 650 mg 03/08/19 20:51 03/14/19 04:56 Tylenol Tab PO 650 mg Q4HR PRN Administration Fever and/ or Pain Hydrocodone Bitart/Acetaminophen 1 each 03/08/19 11:05 03/12/19 14:12 [place]set 7.5-325 PO 1 each Q4H PRN Administration Pain Hydrocodone Bitart/Acetaminophen 1 each 03/12/19 15:09 03/14/19 10:58 [place] 10 PO 1 each Q4H PRN Administration Pain Albuterol/Ipratropium 3 ml 03/04/19 12:25 03/08/19 22:20 Duoneb 0.5 Mg-3 Mg/3 Ml Soln INHALATION 3 ml RT-QID PRN Administration Shortness Of Breath Or Wheezing Albuterol/Ipratropium 3 ml 03/04/19 16:00 03/14/19 11:19 Duoneb 0.5 Mg-3 Mg/3 Ml Soln INHALATION 3 ml RT-QID CHELITA Administration Alprazolam 1 mg 03/11/19 10:06 Xanax PO HS PRN Anxiety Atorvastatin Calcium 40 mg 03/04/19 21:00 03/13/19 19:58 Lipitor PO 40 mg HS CHELITA Administration Budesonide/Formoterol Fumarate 2 puff 03/05/19 20:00 03/14/19 08:57 Symbicort 160-4.5 Mcg Inhaler INHALATION Not Given RT-BID CHELITA Gabapentin 600 mg 03/04/19 21:00 03/13/19 19:58 Neurontin PO 600 mg HS CHELITA Administration Heparin Sodium (Porcine) 5,000 unit 03/03/19 16:00 03/14/19 07:36 Heparin SQ 5,000 unit Q8HR CHELITA Administration Lactated Ringer's 1,000 mls @ 20 mls/hr 03/02/19 21:15 03/13/19 19:37 Lactated Ringers IV Not Given .Q24H CHELITA Dextrose/Sodium Chloride 1,000 mls @ 50 mls/hr 03/12/19 23:15 03/14/19 07:37 Dextrose 5%-Ns Iv Soln IV Not Given .Q20H CHELITA Anidulafungin 100 mg/ Sodium 100 mls @ 84 mls/hr 03/14/19 09:00 03/14/19 08:56 Chloride IVPB 84 mls/hr DAILY CHELITA Administration Piperacillin Sod/Tazobactam 100 mls @ 25 mls/hr 03/13/19 17:30 03/14/19 07:37 Sod 3.375 gm/ Sodium Chloride IVPB 25 mls/hr Q8HR CHELITA Administration Ibuprofen 600 mg 03/11/19 16:00 03/14/19 07:38 Motrin PO 600 mg TID CHELITA Administration Melatonin 5 mg 03/05/19 23:42 03/05/19 23:58 Melatonin PO 5 mg HS PRN Administration Insomnia Metoclopramide HCl 10 mg 03/03/19 11:42 03/07/19 01:46 Reglan IVP 10 mg Q6HR PRN Administration Nausea and Vomiting Metronidazole 500 mg 03/12/19 09:00 03/14/19 07:36 Flagyl PO 500 mg TID CHELITA Administration Ondansetron HCl 4 mg 03/03/19 11:42 03/10/19 07:06 Zofran IVP 4 mg Q8HR PRN Administration Nausea And Vomiting Pantoprazole Sodium 40 mg 03/14/19 21:00 Protonix PO BID [facility] Patient Instructions/Handouts: Ileostomy Care (GEN), Ileostomy Diet (GEN)
[2019-03-14 14:04] LABS: Anisocytosis (M) Present; Poikilocytosis (M) Present; Target Cells Present; Toxic Granulation Present
[2019-03-14] MEDS: PANTOPRAZOLE 40 MG TABLET PO SCH ×2 (20:32→20:43)
[2019-03-14] MEDS: ATORVASTATIN 40 MG TAB PO SCH ×2 (20:32→20:43)
[2019-03-14] MEDS: GABAPENTIN 300 MG CAP PO SCH (20:32)
[2019-03-14] MEDS: LACTATED RINGERS 1,000 ML IV SCH (20:33)
[2019-03-14] MEDS: MEROPENEM 1 GM in SODIUM CHLORIDE 0.9% 100 ML IVPB SCH (22:24)
[2019-03-15] MEDS: HYDROcodone/APAP 10-325MG 1 EACH TAB PO PRN ×4 (03:00→22:02)
[2019-03-15 07:19] LABS: African American GFR (CKD) >90 (>60 ml/min/1.73 sqM); Anion Gap 10 mmol/L; Blood Urea Nitrogen 6 mg/dL (9-20); Calcium 8.7 mg/dL (8.4-10.2); Carbon Dioxide 27 mmol/L (22-30); Chloride 99 mmol/L (98-107); Glucose 81 mg/dL (74-99); Non-African American GFR(CKD) >90 (>60 ml/min/1.73 sqM); Potassium 4.6 mmol/L (3.5-5.1); Sodium 136 mmol/L (137-145)
[2019-03-15 07:29] LABS: HCT 34.4 % (39.0-53.0); HGB 11.7 gm/dL (13.0-17.5); Hypochromasia Slight; MCH 32.3 pg (25.0-35.0); Mean Platelet Volume 8.8; Platelet Count 883 k/uL (150-450); RBC 3.62 m/uL (4.30-5.90); WBC 36.4 k/uL (3.8-10.6)
[2019-03-15] MEDS: IPRATROPIUM-ALBUTEROL 3 ML NEB INHALATION SCH ×4 (07:40→21:17)
[2019-03-15] MEDS: SYMBICORT 160-4.5 MCG INHALER INHALATION SCH ×2 (07:41→21:17)
[2019-03-15 08:24] LABS: Band Neutrophils % 2 %; Lymphocytes # (M) 4.37 k/uL (1.0-4.8); Monocytes # (M) 2.91 k/uL (0-1.0); Neutrophils % (M) 78 %; Nucleated Red Blood Cells 0 /100 WBC (0-0); Total Cells Counted 100
[2019-03-15 08:29] LABS: Target Cells Present
[2019-03-15] MEDS: MEROPENEM 1 GM in SODIUM CHLORIDE 0.9% 100 ML IVPB SCH ×3 (09:21→22:04)
[2019-03-15] MEDS: IBUPROFEN 600 MG TAB PO SCH ×3 (09:21→20:58)
[2019-03-15] MEDS: HEPARIN SODIUM,PORCINE 5,000 UNIT/ML 1 ML VIAL SQ SCH ×3 (09:21→22:38)
[2019-03-15] MEDS: PANTOPRAZOLE 40 MG TABLET PO SCH ×2 (09:22→20:58)
[2019-03-15] MEDS: DEXTROSE 5%-0.9% NACL 1,000 ML IV SCH (11:43)
[2019-03-15] MEDS: ANIDULAFUNGIN 100 MG in SODIUM CHLORIDE 0.9% 100 ML IVPB SCH (13:01)
--- NOTE | 2019-03-15 13:05 | P.PN ---
Subjective Progress Note Date: 03/15/19 CHIEF COMPLAINT: History of colonic perforation HISTORY OF PRESENT ILLNESS: Patient is status post reversal of colostomy performed on 03/03/2019. Patient is also status post exploratory laparotomy, washout of peritoneal cavity, repair of anastomotic leak, lysis of adhesions, and diverting ileostomy performed on 03/06/2019. Patient has family were adamant about being transferred to another facility yesterday. Due to patient's insurance he was unable to be accepted at [facility] or [facility]. Patient is now agreeable to remain hospitalized at current facility. Patient reports his pain is tolerable. Denies nausea or vomiting. Tolerating diet. WBC increased to 36 today. infectious disease is following. PHYSICAL EXAM: VITAL SIGNS: Reviewed. GENERAL: Well-developed in no acute distress. HEENT: No sclera icterus. Extraocular movements grossly intact. Moist buccal mucosa. Head is atraumatic, normocephalic. ABDOMEN: Soft. Appropriate surgical tenderness. Ostomy to right lower quadrant with brown liquid stool. NEUROLOGIC: Alert and oriented. Cranial nerves II through XII grossly intact. ASSESSMENT: 1. History of colonic perforation, status post reversal of colostomy 2. Status post exploratory laparotomy, washout of peritoneal cavity, repair of anastomotic leak, lysis of adhesions, and diverting ileostomy PLAN: -Continue low fiber diet -Increase activity as tolerated. -Incentive spirometer encouraged -Pain control. Continue [place] -Continue IV antibiotics. Monitor WBC. Infectious disease on consult. Nurse practitioner note has been reviewed by physician. Signing provider agrees with the documented findings, assessment, and plan of care. Objective - Vital Signs Vital signs: Vital Signs Temp 98.3 F 03/15/19 07:00 Pulse 80 03/15/19 07:56 Resp 18 03/15/19 07:41 BP 115/69 03/15/19 07:00 Pulse Ox 95 03/15/19 07:41 Intake & Output 03/14/19 03/15/19 03/15/19 18:59 06:59 18:59 Intake Total 400 Output Total 300 0 700 Balance -300 400 -700 Intake: Intake, IV Titration 100 Amount Meropenem 1 gm In Sodium 100 Chloride 0.9% 100 ml @ 200 mls/hr IVPB Q8HR [facility] Rx#:[id number] Oral 300 Output: Drainage 0 0 Left Lower Abdomen 0 0 Urine 300 700 Other: Voiding Method Toilet Toilet Urinal # Voids 1 - Labs CBC & Chem 7: 03/15/19 06:17 03/15/19 06:17 Labs: Abnormal Lab Results - Last 24 Hours (Table) 03/14/19 03/14/19 03/15/19 Range/Units 13:09 13:09 06:17 WBC 32.0 H (3.8-10.6) k/uL RBC 3.92 L (4.30-5.90) m/uL Hgb 11.4 L (13.0-17.5) gm/dL Hct 36.5 L (39.0-53.0) % Plt Count 710 H (150-450) k/uL Neutrophils # 27.3 H (1.3-7.7) k/uL Neutrophils # (Manual) (1.3-7.7) k/uL Monocytes # 1.3 H (0-1.0) k/uL Monocytes # (Manual) (0-1.0) k/uL Sodium 136 L 136 L (137-145) mmol/L BUN 7 L 6 L (9-20) mg/dL Creatinine 0.59 L 0.62 L (0.66-1.25) mg/dL Alkaline Phosphatase 326 H (38-126) U/L C-Reactive Protein 253.0 H (<10.0) mg/L Total Protein 5.5 L (6.3-8.2) g/dL Albumin 2.5 L (3.5-5.0) g/dL 03/15/19 Range/Units 06:17 WBC 36.4 H (3.8-10.6) k/uL RBC 3.62 L (4.30-5.90) m/uL Hgb 11.7 L (13.0-17.5) gm/dL Hct 34.4 L (39.0-53.0) % Plt Count 883 H (150-450) k/uL Neutrophils # (1.3-7.7) k/uL Neutrophils # (Manual) 29.10 H (1.3-7.7) k/uL Monocytes # (0-1.0) k/uL Monocytes # (Manual) 2.91 H (0-1.0) k/uL Sodium (137-145) mmol/L BUN (9-20) mg/dL Creatinine (0.66-1.25) mg/dL Alkaline Phosphatase (38-126) U/L C-Reactive Protein (<10.0) mg/L Total Protein (6.3-8.2) g/dL Albumin (3.5-5.0) g/dL Microbiology - Last 24 Hours (Table) 03/08/19 21:43 Blood Culture - Final Blood No Growth after 144 hours 03/08/19 21:37 Blood Culture - Final Blood No Growth after 144 hours
--- NOTE | 2019-03-15 15:34 | PN ---
PROGRESS NOTE DATE OF SERVICE: 03/15/2019 REASON FOR FOLLOWUP: Secondary peritonitis and persistent leukocytosis. INTERVAL HISTORY: The patient is currently afebrile. The patient has been breathing comfortably. The patient denies having any chest pain. Minimal cough. The patient's abdominal pain has improved compared to yesterday down to about 5/10. No nausea. No vomiting. Did have output in his ileostomy bag and did have very minimal stool per rectum. No loose stools. Feeling slightly better compared to yesterday. PHYSICAL EXAMINATION: Blood pressure 115/69, pulse of 81, temperature 98.3. He is 97% on room air. General description is a middle-aged male up in the chair in no distress. HEENT: Slight pallor. No scleral icterus. Oral mucosa is moist. LUNGS: Unlabored breathing. Decreased breath sounds at the bases. No wheeze. HEART: S1 and S2. Regular rate and rhythm. ABDOMEN: Soft. Mildly distended. No guarding or rigidity. LABS: Hemoglobin is 11.7, white count elevated at 36.4 with a BUN of 6, creatinine 0.62. Blood culture has been negative. DIAGNOSTIC IMPRESSION AND PLAN: Patient with secondary peritonitis in this patient who did have anastomosis leak status post operative repair of the same. Subsequently did have a fever and now with persistently elevated white count. Antibiotic has been adjusted. No clear response. The only organism at this time not covered is VRE. Daptomycin will be added. Continue the meropenem and Eraxis. Repeat CBC tomorrow. Plan of care was discussed with the surgeons. MMODL / IJN: [id number] /
[2019-03-15] MEDS: LACTATED RINGERS 1,000 ML IV SCH (20:53)
[2019-03-15] MEDS: GABAPENTIN 300 MG CAP PO SCH (20:58)
[2019-03-15] MEDS: ALPRAZolam 1 MG TAB PO PRN (22:02)
--- NOTE | 2019-03-16 00:03 | P.PN ---
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 However his hospital course was complicated by anastomotic leak and he underwent exploratory laparotomy with repair of the leak with diverting ileostomy on the right side, also status post lysis of adhesions. Today is postop day #1. His pain is better controlled in his abdomen, he has expected postsurgical discomfort/pain. G-tube is in a Place. Vitas looks stable. Labs showing leukocytosis with the CIRCUIT JUDGE 20.5 K, potassium 5.2, sodium 134 and creatinine 1.1. Patient remains on IV fluids, pain medication and also patient is on Zosyn. 03/08/2019 Patient today was complaining of from lower abdominal pain that responded partially to Dilaudid associated with nausea after opioid. His colostomy back have small amount of stool in it. Patient denies chest pain, dyspnea or dizziness however there is pink alert urine in his Richard catheter. With UA showing urine RBC is 27. Other than that patient vitals showing patient is been afebrile since yesterday, last time he had fever was 03/06/2019 at 10 Fahrenh eit. He has worsening leukocytosis today at 26.9. BMP looks his stable with mild hyponatremia at 135, potassium 4.9, creatinine normal 0.8. Patient currently remains on Zosyn. 03/09/2019 Patient NG tube was DC'd yesterday, he was started on a clear diet. No nausea vomiting, his abdominal pain is much better today with pain medication but serrated 3/10, his colostomy back in a Place with dark watery stool. His vitals are stable and he is gsfkyubofs02% on 3 L oxygen. he has spiked a fever of 102.2 yesterday night.Richard catheter was discontinued yesterday and he is able to be. We will check residual urine.WBC is 27.3K,hemoglobin is stable at 11.9.urine cultures pending.infectious disease already evaluated the patient and their input is appreciated. Recommend May need to repeat CAT scan of the abdomen.antibiotics has been adjusted to cefepime and Flagyl 03/10/2019 Patient is doing better today, he is able to tolerate his diet, which is semisolid diet only. His abdominal pain at the surgical site is subsided and is better controlled. No nausea vomiting. Colostomy back in a Place and has dark- colored liquidy stool in it. No breathing problems. No fever. Vitals are stable and his saturating 95% in 3 L. Labs showing WBC start improving down from 27.3 to 25.6K, so CAT scan does not need to be done currently because patient showing improvement clinically and in his lab work as per my discussions with surgical team. However continue with the Antibiotics prescribed by the ID team including cefepime, Flagyl and fluconazole. Urine culture: No growth. No fever since yesterday 03/11/2019 Patient has less pain and surgical site, is still on clear liquid diet with no nausea vomiting, his colostomy is working with watery dark-colored stool. He still have significant leukocytosis of 25,000, patient still on cefepime, Flagyl and fluconazole as per ID team. Discussed the case with the surgical team, are going to keep the patient over the weekend for monitoring. Other than that patient says that he has no problem with urination and his urine is yellow, currently.. 03/12/2019 Patient didn't have appetite so he didn't eat his breakfast This morning, however he has no nausea vomiting and his abdominal pain is minimal as 2/10 in severity. This colostomy bag is still with watery stool.he has persistent leukocytosis. Repeat labs this morning are still pending.patient had some difficulty replacing his IV line, currently his IV line is replaced and staff will provide antibiotics today to which he is agreeable.cefepime, Flagyl and fluconazole.\\ 03/13/2019 patient is lying in his incliner, fully awake and oriented. Not in distress.his abdominal pain is minimal, however colostomy back is with watery dark-colored stool. He is tolerating solid diet with no nausea vomiting.today leukocytosis went up to 30 2.4K.most likely from intra-abdominal source as patient has no urinary orpulmonary symptoms or rash.surgical primary team R ordering CT of the abdomen and pelvis today for further evaluation 03/14/2019 Patient is status post exploratory laparotomy, washout of peritoneal cavity anastomotic leak, lysis of adhesions andby working ileostomy. Patient is currently tolerating oral diet. Otherwise WBC count is trending up. Patient is on broad-spectrum antibiotics as per ID recommendations. Patient's family is requesting to be transferred to tertiary care facility. Transfer is being arranged to [facility] by general surgery. Patient has the Afebrile. urrent medications reviewed. Objective - Vital Signs Vital signs: Vital Signs Temp 98.5 F 03/14/19 19:44 Pulse 91 03/14/19 19:44 Resp 20 03/14/19 19:44 BP 127/69 03/14/19 19:44 Pulse Ox 94 L 03/14/19 19:44 Intake & Output 03/14/19 03/14/19 03/15/19 06:59 18:59 06:59 Intake Total 600 100 Output Total 305 300 0 Balance 295 -300 100 Intake: Intake, IV Titration 600 Amount Piperacillin-Tazobactam 3 100 .375 gm In Sodium Chloride 0.9% 100 ml @ 25 mls/hr IVPB Q8HR [facility] Rx# :[id number] Vancomycin 1,750 mg In 500 Sodium Chloride 0.9% 500 ml 500 ml @ 167 mls/hr IVPB Q8H [facility] Rx#: [id number] Oral 100 Output: Drainage 5 0 0 Left Lower Abdomen 5 0 0 Urine 300 Stool 300 Other: Voiding Method Toilet Toilet Toilet Urinal Urinal # Voids 1 1 - Exam GENERAL: The patient is alert and oriented x3, not in any acute distress. Well developed, well nourished. HEENT: Pupils are round and equally reacting to light. EOMI. No scleral icterus. No conjunctival pallor. Normocephalic, atraumatic. No pharyngeal erythema. No thyromegaly. CARDIOVASCULAR: S1 and S2 present. No murmurs, rubs, or gallops. PULMONARY: Chest is clear to auscultation, no wheezing or crackles. -ABDOMEN: Soft, nontender, nondistended, normoactive bowel sounds. No palpable organomegaly. Right colostomy with semi-formed dark stool in the colostomy bag. Richard catheter is in place MUSCULOSKELETAL: No joint swelling or deformity. EXTREMITIES: No cyanosis, clubbing, or pedal edema. NEUROLOGICAL: Gross neurological examination did not reveal any focal deficits. SKIN: No rashes. no petechiae. - Labs CBC & Chem 7: 03/15/19 06:17 03/15/19 06:17 Labs: Abnormal Lab Results - Last 24 Hours (Table) 03/14/19 03/14/19 Range/Units 13:09 13:09 WBC 32.0 H (3.8-10.6) k/uL RBC 3.92 L (4.30-5.90) m/uL Hgb 11.4 L (13.0-17.5) gm/dL Hct 36.5 L (39.0-53.0) % Plt Count 710 H (150-450) k/uL Neutrophils # 27.3 H (1.3-7.7) k/uL Monocytes # 1.3 H (0-1.0) k/uL Sodium 136 L (137-145) mmol/L BUN 7 L (9-20) mg/dL Creatinine 0.59 L (0.66-1.25) mg/dL Alkaline Phosphatase 326 H (38-126) U/L C-Reactive Protein 253.0 H (<10.0) mg/L Total Protein 5.5 L (6.3-8.2) g/dL Albumin 2.5 L (3.5-5.0) g/dL Microbiology - Last 24 Hours (Table) 03/08/19 21:37 Blood Culture - Preliminary Blood No Growth after 120 hours 03/08/19 21:43 Blood Culture - Preliminary Blood No Growth after 120 hours Assessment and Plan Assessment: -Recent history of bowel perforation status post colostomy and splenectomy on 03/07/2019, status post reversal of colostomy on 03/03/2019, however his hospital course is complicated by leak and an anastomosis, is status post second exploratory laparotomy with repair of the leak and diverting right ileostomy. -systemic inflammatory response with fever and leukocytosis -Sepsis secondary to above -Mild hematuria, recheck urinalysis and urine culture -Systemic inflammatory response with leukocytosis and fever, possible sepsis. -Chronic obstructive pulmonary disease, not in acute exacerbation -Bilateral atelectasis -Mild hyponatremia -Hyperlipidemia -Nicotine dependence Plan: This is a pleasant 53 years old male who presents with reversal of colostomy, completed by leaking anastomosis status post anastomoses repair. Continue with pain management. change antibiotics as per ID team recommendation. eviewed report of CT of the abdomen and pelvis. Follow-up labs. Labs and medication were reviewed.. Continue same treatment. Continue with symptomatic treatment. Resume home medication. Monitor lytes and vitals. DVT and GI prophylaxis. Further recommendations of the clinical course of the patient DVT prophylaxis: Subcutaneous heparin GI Prophylaxis: Protonix PT/OT: Pending Prognosis is guarded Time with Patient: Greater than 30
--- NOTE | 2019-03-16 00:06 | P.PN ---
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 However his hospital course was complicated by anastomotic leak and he underwent exploratory laparotomy with repair of the leak with diverting ileostomy on the right side, also status post lysis of adhesions. Today is postop day #1. His pain is better controlled in his abdomen, he has expected postsurgical discomfort/pain. G-tube is in a Place. Vitas looks stable. Labs showing leukocytosis with the FEED BLENDER 20.5 K, potassium 5.2, sodium 134 and creatinine 1.1. Patient remains on IV fluids, pain medication and also patient is on Zosyn. 03/08/2019 Patient today was complaining of from lower abdominal pain that responded partially to Dilaudid associated with nausea after opioid. His colostomy back have small amount of stool in it. Patient denies chest pain, dyspnea or dizziness however there is pink alert urine in his Richard catheter. With UA showing urine RBC is 27. Other than that patient vitals showing patient is been afebrile since yesterday, last time he had fever was 03/06/2019 at 10 Fahrenh eit. He has worsening leukocytosis today at 26.9. BMP looks his stable with mild hyponatremia at 135, potassium 4.9, creatinine normal 0.8. Patient currently remains on Zosyn. 03/09/2019 Patient NG tube was DC'd yesterday, he was started on a clear diet. No nausea vomiting, his abdominal pain is much better today with pain medication but serrated 3/10, his colostomy back in a Place with dark watery stool. His vitals are stable and he is qoofrtqgic19% on 3 L oxygen. he has spiked a fever of 102.2 yesterday night.Richard catheter was discontinued yesterday and he is able to be. We will check residual urine.WBC is 27.3K,hemoglobin is stable at 11.9.urine cultures pending.infectious disease already evaluated the patient and their input is appreciated. Recommend May need to repeat CAT scan of the abdomen.antibiotics has been adjusted to cefepime and Flagyl 03/10/2019 Patient is doing better today, he is able to tolerate his diet, which is semisolid diet only. His abdominal pain at the surgical site is subsided and is better controlled. No nausea vomiting. Colostomy back in a Place and has dark- colored liquidy stool in it. No breathing problems. No fever. Vitals are stable and his saturating 95% in 3 L. Labs showing WBC start improving down from 27.3 to 25.6K, so CAT scan does not need to be done currently because patient showing improvement clinically and in his lab work as per my discussions with surgical team. However continue with the Antibiotics prescribed by the ID team including cefepime, Flagyl and fluconazole. Urine culture: No growth. No fever since yesterday 03/11/2019 Patient has less pain and surgical site, is still on clear liquid diet with no nausea vomiting, his colostomy is working with watery dark-colored stool. He still have significant leukocytosis of 25,000, patient still on cefepime, Flagyl and fluconazole as per ID team. Discussed the case with the surgical team, are going to keep the patient over the weekend for monitoring. Other than that patient says that he has no problem with urination and his urine is yellow, currently.. 03/12/2019 Patient didn't have appetite so he didn't eat his breakfast This morning, however he has no nausea vomiting and his abdominal pain is minimal as 2/10 in severity. This colostomy bag is still with watery stool.he has persistent leukocytosis. Repeat labs this morning are still pending.patient had some difficulty replacing his IV line, currently his IV line is replaced and staff will provide antibiotics today to which he is agreeable.cefepime, Flagyl and fluconazole.\\ 03/13/2019 patient is lying in his incliner, fully awake and oriented. Not in distress.his abdominal pain is minimal, however colostomy back is with watery dark-colored stool. He is tolerating solid diet with no nausea vomiting.today leukocytosis went up to 30 2.4K.most likely from intra-abdominal source as patient has no urinary orpulmonary symptoms or rash.surgical primary team R ordering CT of the abdomen and pelvis today for further evaluation 03/14/2019 Patient is status post exploratory laparotomy, washout of peritoneal cavity anastomotic leak, lysis of adhesions andby working ileostomy. Patient is currently tolerating oral diet. Otherwise WBC count is trending up. Patient is on broad-spectrum antibiotics as per ID recommendations. Patient's family is requesting to be transferred to tertiary care facility. Transfer is being arranged to [facility] by general surgery. Patient has the Afebrile. 03/15/2019 Patient is currently lying in the bed Denied any worsening abdominal pain. Tolerating oral diet. Ileostomy is functioning. Patient's family wants him to be transferred to different facility. Could not be transferred to [facility] or [facility] to incidence issues. Leukocytosis increased to 36.4 today. Currently on antibiotics in the form ofda ptomycin and meropenem. ID is following. patient denied any nausea or diarrhea. Patient isafebrile. Current medications reviewed. Objective - Vital Signs Vital signs: Vital Signs Temp 98.4 F 03/15/19 15:00 Pulse 80 03/15/19 16:52 Resp 17 03/15/19 15:00 BP 148/54 03/15/19 15:00 Pulse Ox 93 L 03/15/19 15:00 Intake & Output 03/14/19 03/15/19 03/15/19 18:59 06:59 18:59 Intake Total 400 Output Total 300 0 700 Balance -300 400 -700 Intake: Intake, IV Titration 100 Amount Meropenem 1 gm In Sodium 100 Chloride 0.9% 100 ml @ 200 mls/hr IVPB Q8HR [facility] Rx#:[id number] Oral 300 Output: Drainage 0 0 Left Lower Abdomen 0 0 Urine 300 700 Other: Voiding Method Toilet Toilet Urinal # Voids 1 300 - Exam GENERAL: The patient is alert and oriented x3, not in any acute distress. Well developed, well nourished. HEENT: Pupils are round and equally reacting to light. EOMI. No scleral icterus. No conjunctival pallor. Normocephalic, atraumatic. No pharyngeal erythema. No thyromegaly. CARDIOVASCULAR: S1 and S2 present. No murmurs, rubs, or gallops. PULMONARY: Chest is clear to auscultation, no wheezing or crackles. -ABDOMEN: Soft, nontender, nondistended, normoactive bowel sounds. No palpable organomegaly. Right colostomy with semi-formed dark stool in the colostomy bag. Richard catheter is in place MUSCULOSKELETAL: No joint swelling or deformity. EXTREMITIES: No cyanosis, clubbing, or pedal edema. NEUROLOGICAL: Gross neurological examination did not reveal any focal deficits. SKIN: No rashes. no petechiae. - Labs CBC & Chem 7: 03/15/19 06:17 03/15/19 06:17 Labs: Abnormal Lab Results - Last 24 Hours (Table) 03/15/19 03/15/19 Range/Units 06:17 06:17 WBC 36.4 H (3.8-10.6) k/uL RBC 3.62 L (4.30-5.90) m/uL Hgb 11.7 L (13.0-17.5) gm/dL Hct 34.4 L (39.0-53.0) % Plt Count 883 H (150-450) k/uL Neutrophils # (Manual) 29.10 H (1.3-7.7) k/uL Monocytes # (Manual) 2.91 H (0-1.0) k/uL Sodium 136 L (137-145) mmol/L BUN 6 L (9-20) mg/dL Creatinine 0.62 L (0.66-1.25) mg/dL Microbiology - Last 24 Hours (Table) 03/08/19 21:43 Blood Culture - Final Blood No Growth after 144 hours 03/08/19 21:37 Blood Culture - Final Blood No Growth after 144 hours Assessment and Plan Assessment: -Recent history of bowel perforation status post colostomy and splenectomy on 03/07/2019, status post reversal of colostomy on 03/03/2019, however his hospital course is complicated by leak and an anastomosis, is status post second exploratory laparotomy with repair of the leak and diverting right ileostomy. -systemic inflammatory response with fever and leukocytosis -Sepsis secondary to above -Mild hematuria, recheck urinalysis and urine culture -Systemic inflammatory response with leukocytosis and fever, possible sepsis. -Chronic obstructive pulmonary disease, not in acute exacerbation -Bilateral atelectasis -Mild hyponatremia -Hyperlipidemia -Nicotine dependence Plan: This is a pleasant 53 years old male who presents with reversal of colostomy, completed by leaking anastomosis status post anastomoses repair. Continue with pain management. change antibiotics as per ID team recommendation. eviewed report of CT of the abdomen and pelvis. Follow-up labs. Labs and medication were reviewed.. Continue same treatment. Continue with symptomatic treatment. Resume home medication. Monitor lytes and vitals. DVT and GI prophylaxis. Further recommendations of the clinical course of the patient DVT prophylaxis: Subcutaneous heparin GI Prophylaxis: Protonix PT/OT: Pending Prognosis is guarded Time with Patient: Greater than 30
[2019-03-16] MEDS: HYDROcodone/APAP 10-325MG 1 EACH TAB PO PRN ×4 (05:24→21:34)
[2019-03-16] MEDS: DEXTROSE 5%-0.9% NACL 1,000 ML IV SCH (06:39)
[2019-03-16] MEDS: SYMBICORT 160-4.5 MCG INHALER INHALATION SCH ×2 (07:21→19:15)
[2019-03-16] MEDS: IPRATROPIUM-ALBUTEROL 3 ML NEB INHALATION SCH ×4 (07:21→19:15)
[2019-03-16 07:45] LABS: Basophils # (A) 0.2 k/uL (0-0.2); Basophils % (A) 1 %; Eosinophils # (A) 0.4 k/uL (0-0.7); Eosinophils % (A) 2 %; HCT 35.2 % (39.0-53.0); HGB 11.2 gm/dL (13.0-17.5); Hypochromasia Slight; Lymphocytes % (A) 7 %; MCH 29.9 pg (25.0-35.0); MCHC 31.9 g/dL (31.0-37.0); MCV 93.7 fL (80.0-100.0); Mean Platelet Volume 7.9; Monocytes % (A) 7 %; Neutrophils # (A) 22.4 k/uL (1.3-7.7); Neutrophils % (A) 81 %; Platelet Count 938 k/uL (150-450); RBC 3.76 m/uL (4.30-5.90); WBC 27.6 k/uL (3.8-10.6)
[2019-03-16 07:56] LABS: African American GFR (CKD) >90 (>60 ml/min/1.73 sqM); Anion Gap 5 mmol/L; Blood Urea Nitrogen 7 mg/dL (9-20); Calcium 8.8 mg/dL (8.4-10.2); Carbon Dioxide 32 mmol/L (22-30); Chloride 101 mmol/L (98-107); Glucose 100 mg/dL (74-99); Non-African American GFR(CKD) >90 (>60 ml/min/1.73 sqM); Potassium 4.4 mmol/L (3.5-5.1); Sodium 138 mmol/L (137-145)
[2019-03-16] MEDS: IBUPROFEN 600 MG TAB PO SCH ×3 (08:15→20:52)
[2019-03-16] MEDS: HEPARIN SODIUM,PORCINE 5,000 UNIT/ML 1 ML VIAL SQ SCH ×3 (08:33→23:22)
[2019-03-16] MEDS: MEROPENEM 1 GM in SODIUM CHLORIDE 0.9% 100 ML IVPB SCH ×2 (08:34→17:03)
[2019-03-16] MEDS: PANTOPRAZOLE 40 MG TABLET PO SCH ×2 (08:34→20:52)
[2019-03-16] MEDS: ANIDULAFUNGIN 100 MG in SODIUM CHLORIDE 0.9% 100 ML IVPB SCH (09:56)
--- NOTE | 2019-03-16 12:05 | P.PN ---
Subjective Progress Note Date: 03/16/19 CHIEF COMPLAINT: History of colonic perforation HISTORY OF PRESENT ILLNESS: Patient is status post reversal of colostomy performed on 03/03/2019. Patient is also status post exploratory laparotomy, washout of peritoneal cavity, repair of anastomotic leak, lysis of adhesions, and diverting ileostomy performed on 03/06/2019. Patient examined at the bedside with Dr. Moralez. Pain is tolerable. tolerating diet. Denies nausea or vomiting. WBC 27.6. Afebrile infectious disease is following. PHYSICAL EXAM: VITAL SIGNS: Reviewed. GENERAL: Well-developed in no acute distress. HEENT: No sclera icterus. Extraocular movements grossly intact. Moist buccal mucosa. Head is atraumatic, normocephalic. ABDOMEN: Soft. Appropriate surgical tenderness. Ostomy to right lower quadrant with brown liquid stool. JASON with minimal SS drainage. NEUROLOGIC: Alert and oriented. Cranial nerves II through XII grossly intact. ASSESSMENT: 1. History of colonic perforation, status post reversal of colostomy 2. Status post exploratory laparotomy, washout of peritoneal cavity, repair of anastomotic leak, lysis of adhesions, and diverting ileostomy PLAN: -Continue low fiber diet -Increase activity as tolerated. -Incentive spirometer encouraged -Pain control. Continue [place] -Continue IV antibiotics. Monitor WBC. Infectious disease on consult. Nurse practitioner note has been reviewed by physician. Signing provider agrees with the documented findings, assessment, and plan of care. Objective - Vital Signs Vital signs: Vital Signs Temp 98.0 F 03/16/19 07:00 Pulse 96 03/16/19 11:10 Resp 15 03/16/19 07:00 BP 112/63 03/16/19 07:00 Pulse Ox 94 L 03/16/19 07:00 Intake & Output 03/15/19 03/16/19 03/16/19 18:59 06:59 18:59 Intake Total 300 Output Total 700 470 300 Balance -700 -170 -300 Intake: Intake, IV Titration 100 Amount Meropenem 1 gm In Sodium 100 Chloride 0.9% 100 ml @ 200 mls/hr IVPB Q8HR [facility] Rx#:[id number] Oral 200 Output: Urine 700 320 300 Stool 150 Other: # Voids 300 2 # Bowel Movements 1 - Labs CBC & Chem 7: 03/16/19 07:17 03/16/19 07:17 Labs: Abnormal Lab Results - Last 24 Hours (Table) 03/16/19 03/16/19 Range/Units 07:17 07:17 WBC 27.6 H (3.8-10.6) k/uL RBC 3.76 L (4.30-5.90) m/uL Hgb 11.2 L (13.0-17.5) gm/dL Hct 35.2 L (39.0-53.0) % Plt Count 938 H (150-450) k/uL Neutrophils # 22.4 H (1.3-7.7) k/uL Monocytes # 2.0 H (0-1.0) k/uL Carbon Dioxide 32 H (22-30) mmol/L BUN 7 L (9-20) mg/dL Creatinine 0.60 L (0.66-1.25) mg/dL Glucose 100 H (74-99) mg/dL
[2019-03-16] MEDS: GABAPENTIN 300 MG CAP PO SCH (20:51)
[2019-03-16] MEDS: LACTATED RINGERS 1,000 ML IV SCH (20:51)
[2019-03-16] MEDS: ALPRAZolam 1 MG TAB PO PRN (20:52)
--- NOTE | 2019-03-16 22:48 | PN ---
PROGRESS NOTE DATE OF SERVICE: 03/16/2019. REASON FOR FOLLOWUP: Secondary peritonitis and elevated white count. INTERVAL HISTORY: The patient is currently afebrile. The patient has been breathing comfortably. The patient denies having any chest pain or shortness of breath or cough. Abdominal pain has improved. No nausea, no vomiting. He did have output in his ileostomy bag. PHYSICAL EXAMINATION: Blood pressure 126/73 with a pulse of 99, temperature 98.6. He is 93% on room air. General description is a middle-aged male lying in bed in no distress. HEENT examination: Pallor. No scleral icterus. Oral mucosa membranes moist. LUNGS unlabored breathing. Decreased breath sounds in the base, with no wheeze. HEART: S1-S2 regular rate and rhythm. ABDOMEN: Soft, no tenderness. Incision is currently intact. LABS: Hemoglobin is 11.2, white count 27.6 with a BUN of 7, creatinine 0.60. DIAGNOSTIC IMPRESSION AND PLAN: Patient with secondary peritonitis in this patient who did have an anastomosis leak. The patient blood culture has been negative. No OR cultures. The patient white count responded to addition of daptomycin yesterday and that will be continued along with meropenem. We will get a mid line tomorrow and plan for daptomycin, Invanz and oral Diflucan for at least 10 more days in outpatient setting. Continue supportive care. MMODL / IJN: [id number] / SANTHOSH
[2019-03-17] MEDS: MEROPENEM 1 GM in SODIUM CHLORIDE 0.9% 100 ML IVPB SCH ×3 (00:40→16:40)
[2019-03-17] MEDS: DEXTROSE 5%-0.9% NACL 1,000 ML IV SCH (00:42)
[2019-03-17] MEDS: HYDROcodone/APAP 10-325MG 1 EACH TAB PO PRN ×4 (03:58→21:06)
[2019-03-17 07:32] LABS: African American GFR (CKD) >90 (>60 ml/min/1.73 sqM); Anion Gap 5 mmol/L; Blood Urea Nitrogen 6 mg/dL (9-20); Calcium 8.9 mg/dL (8.4-10.2); Carbon Dioxide 30 mmol/L (22-30); Chloride 103 mmol/L (98-107); Glucose 109 mg/dL (74-99); Non-African American GFR(CKD) >90 (>60 ml/min/1.73 sqM); Sodium 138 mmol/L (137-145)
[2019-03-17 07:57] LABS: HCT 36.2 % (39.0-53.0); HGB 11.2 gm/dL (13.0-17.5); Hypochromasia Slight; MCH 29.3 pg (25.0-35.0); MCHC 30.9 g/dL (31.0-37.0); Mean Platelet Volume 8.2; Platelet Count 887 k/uL (150-450); RBC 3.81 m/uL (4.30-5.90); RDW 15.1 % (11.5-15.5); WBC 25.2 k/uL (3.8-10.6)
[2019-03-17] MEDS: SYMBICORT 160-4.5 MCG INHALER INHALATION SCH ×2 (08:13→20:23)
[2019-03-17] MEDS: IPRATROPIUM-ALBUTEROL 3 ML NEB INHALATION SCH ×4 (08:13→20:23)
[2019-03-17 08:36] LABS: Eosinophils # (M) 0.25 k/uL (0-0.7); Lymphocytes # (M) 1.26 k/uL (1.0-4.8); Monocytes # (M) 2.27 k/uL (0-1.0); Neutrophils # (M) 21.42 k/uL (1.3-7.7); Neutrophils % (M) 85 %; Nucleated Red Blood Cells 0 /100 WBC (0-0); Poikilocytosis (M) Present; Target Cells Present; Total Cells Counted 100
[2019-03-17] MEDS: PANTOPRAZOLE 40 MG TABLET PO SCH ×2 (09:22→21:02)
[2019-03-17] MEDS: IBUPROFEN 600 MG TAB PO SCH ×3 (09:24→21:02)
[2019-03-17] MEDS: HEPARIN SODIUM,PORCINE 5,000 UNIT/ML 1 ML VIAL SQ SCH ×3 (09:27→22:59)
[2019-03-17 09:42] LABS: C Reactive Protein 164.5 mg/L (<10.0)
[2019-03-17] MEDS: ANIDULAFUNGIN 100 MG in SODIUM CHLORIDE 0.9% 100 ML IVPB SCH (11:04)
--- NOTE | 2019-03-17 14:23 | P.PN ---
Subjective Progress Note Date: 03/17/19 CHIEF COMPLAINT: History of colonic perforation HISTORY OF PRESENT ILLNESS: Patient is status post reversal of colostomy performed on 03/03/2019. Patient is also status post exploratory laparotomy, washout of peritoneal cavity, repair of anastomotic leak, lysis of adhesions, and diverting ileostomy performed on 03/06/2019. Patient examined at the bedside with Dr. Moralez. Pain is tolerable. tolerating diet. Denies nausea or vomiting. WBC 25.2. Afebrile infectious disease is following. PHYSICAL EXAM: VITAL SIGNS: Reviewed. GENERAL: Well-developed in no acute distress. HEENT: No sclera icterus. Extraocular movements grossly intact. Moist buccal mucosa. Head is atraumatic, normocephalic. ABDOMEN: Soft. Appropriate surgical tenderness. Ostomy to right lower quadrant with brown liquid stool. JASON with minimal SS drainage. NEUROLOGIC: Alert and oriented. Cranial nerves II through XII grossly intact. ASSESSMENT: 1. History of colonic perforation, status post reversal of colostomy 2. Status post exploratory laparotomy, washout of peritoneal cavity, repair of anastomotic leak, lysis of adhesions, and diverting ileostomy PLAN: -Continue low fiber diet -Increase activity as tolerated. -Incentive spirometer encouraged -Pain control. Continue [place] -Continue IV antibiotics. Monitor WBC. Infectious disease on consult. patient to receive midline IV catheter today -Dr. Moralez would like urology consulted to evaluate possible renal mass -Discharge home in the next 2-3 days if white count continues to trend downward Nurse practitioner note has been reviewed by physician. Signing provider agrees with the documented findings, assessment, and plan of care. Objective - Vital Signs Vital signs: Vital Signs Temp 99.8 F H 03/17/19 13:05 Pulse 83 03/17/19 13:05 Resp 18 03/17/19 13:05 BP 154/75 03/17/19 13:05 Pulse Ox 97 03/17/19 13:05 Intake & Output 03/16/19 03/17/19 03/17/19 18:59 06:59 18:59 Intake Total 150 120 Output Total 300 0 0 Balance -300 150 120 Intake: IV 120 Lactated Ringers 1,000 ml 120 @ 20 mls/hr IV .Q24H [facility] Rx#:[id number] Oral 150 Output: Drainage 0 0 Left Lower Abdomen 0 0 Urine 300 Other: Voiding Method Urinal Urinal # Voids 1 1 1 - Labs CBC & Chem 7: 03/17/19 06:58 03/17/19 06:58 Labs: Abnormal Lab Results - Last 24 Hours (Table) 03/17/19 03/17/19 Range/Units 06:58 06:58 WBC 25.2 H (3.8-10.6) k/uL RBC 3.81 L (4.30-5.90) m/uL Hgb 11.2 L (13.0-17.5) gm/dL Hct 36.2 L (39.0-53.0) % MCHC 30.9 L (31.0-37.0) g/dL Plt Count 887 H (150-450) k/uL Neutrophils # (Manual) 21.42 H (1.3-7.7) k/uL Monocytes # (Manual) 2.27 H (0-1.0) k/uL BUN 6 L (9-20) mg/dL Creatinine 0.60 L (0.66-1.25) mg/dL Glucose 109 H (74-99) mg/dL C-Reactive Protein 164.5 H (<10.0) mg/L
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
[2019-03-17] MEDS: GABAPENTIN 300 MG CAP PO SCH (21:05)
[2019-03-17] MEDS: ALPRAZolam 1 MG TAB PO PRN (21:10)
--- NOTE | 2019-03-17 22:41 | PN ---
PROGRESS NOTE DATE OF SERVICE: 03/17/2019 REASON FOR FOLLOWUP: 1. Secondary peritonitis. 2. Leukocytosis. INTERVAL HISTORY: The patient was seen on rounds earlier this afternoon. The patient has been afebrile. The patient was noticed to have leakage from his ileostomy and that was following his incision. The patient is breathing comfortably. He did refuse this morning his mid line placement. Abdominal pain has decreased in intensity and no nausea, no vomiting. PHYSICAL EXAMINATION: Blood pressure is 150/85 with a pulse of 73, temperature 98.2. He is 93% on room air. General description is a middle-aged male up in the chair in no distress. RESPIRATORY SYSTEM: Unlabored breathing with decreased intensity of breath sounds at the base. HEART: S1, S2. Regular rate and rhythm. NAUSEA ABDOMEN: Soft. Midline incision covered with a postoperative dressing; however, it has been soiled with stools. EXTREMITIES: No edema of the feet. LABS: Hemoglobin is 11.2, white count 5.2 with a BUN of 6, creatinine 0.60. DIAGNOSTIC IMPRESSION AND PLAN: Patient with secondary peritonitis from anastomosis leak in this patient whose blood cultures have been negative. No OR cultures. Currently on a combination of meropenem, daptomycin and Eraxis; to continue, finishing therapy with Invanz, daptomycin and oral Diflucan. Will monitor his clinical course closely. Continue with supportive care. MMODL / IJN: [id number] / MTDD
[2019-03-18] MEDS: MEROPENEM 1 GM in SODIUM CHLORIDE 0.9% 100 ML IVPB SCH ×2 (00:01→08:41)
[2019-03-18] MEDS: DEXTROSE 5%-0.9% NACL 1,000 ML IV SCH (02:44)
[2019-03-18] MEDS: LACTATED RINGERS 1,000 ML IV SCH (05:51)
[2019-03-18] MEDS: HEPARIN SODIUM,PORCINE 5,000 UNIT/ML 1 ML VIAL SQ SCH (08:40)
[2019-03-18] MEDS: IPRATROPIUM-ALBUTEROL 3 ML NEB INHALATION SCH ×4 (08:41→15:28)
[2019-03-18] MEDS: SYMBICORT 160-4.5 MCG INHALER INHALATION SCH (08:41)
[2019-03-18] MEDS: HYDROcodone/APAP 10-325MG 1 EACH TAB PO PRN ×2 (10:52→17:26)
[2019-03-18] MEDS: IBUPROFEN 600 MG TAB PO SCH (10:53)
[2019-03-18] MEDS: ANIDULAFUNGIN 100 MG in SODIUM CHLORIDE 0.9% 100 ML IVPB SCH (10:53)
[2019-03-18 11:17] LABS: HCT 37.6 % (39.0-53.0); Hypochromasia Slight; MCH 30.3 pg (25.0-35.0); MCV 94.6 fL (80.0-100.0); Mean Platelet Volume 8.9; RBC 3.97 m/uL (4.30-5.90); WBC 21.5 k/uL (3.8-10.6)
[2019-03-18 11:30] LABS: Platelet Count 1077 k/uL (150-450)
[2019-03-18 12:50] LABS: Eosinophils # (M) 0.22 k/uL (0-0.7); Lymphocytes # (M) 1.29 k/uL (1.0-4.8); Monocytes # (M) 1.72 k/uL (0-1.0); Neutrophils # (M) 18.28 k/uL (1.3-7.7); Neutrophils % (M) 85 %; Nucleated Red Blood Cells 0 /100 WBC (0-0); Total Cells Counted 100
[2019-03-18 12:53] LABS: Anisocytosis (M) Present; Poikilocytosis (M) Present; Polychromasia Present; Target Cells Present
--- NOTE | 2019-03-18 13:14 | P.PN ---
Progress Note - Text Progress Note Date: 03/18/19 the patient was very angry to me this morning. He basically called me an "asshole". He was upset about his urology consultation. The patient was very abusive. I left the room.he will be discharged home per medicine.
[2019-03-18] MEDS ORDERED: ALPRAZolam 1 MG TAB PO PRN (14:19)
[2019-03-18] MEDS: PANTOPRAZOLE 40 MG TABLET PO SCH (14:32)
[2019-03-18] MEDS ORDERED: ERTAPENEM 1 GM in SODIUM CHLORIDE 0.9% 50 ML IVPB STA (15:43)
--- NOTE | 2019-03-18 16:13 | P.PN ---
Subjective Progress Note Date: 03/16/19 Principal diagnosis: bowel perforation status post colostomy and splenectomy This is a pleasant 53 years old male with past medical history of hyperlipidemia, status post bowel resection with colostomy and splenectomy on 11/2018, secondary to crush injury and resultant perforation in his:, He was admitted on 03/03/2019 for reverse her colostomy on the same day. However his hospital course was complicated by anastomotic leak and he underwent exploratory laparotomy with repair of the leak with diverting ileostomy on the right side, also status post lysis of adhesions. Today is postop day #1. His pain is better controlled in his abdomen, he has expected postsurgical discomfort/pain. G-tube is in a Place. Vitas looks stable. Labs showing leukocytosis with the GERIATRIC NURSE PRACTITIONER 20.5 K, potassium 5.2, sodium 134 and creatinine 1.1. Patient remains on IV fluids, pain medication and also patient is on Zosyn. 03/08/2019 Patient today was complaining of from lower abdominal pain that responded partially to Dilaudid associated with nausea after opioid. His colostomy back have small amount of stool in it. Patient denies chest pain, dyspnea or dizziness however there is pink alert urine in his Richard catheter. With UA showing urine RBC is 27. Other than that patient vitals showing patient is been afebrile since yesterday, last time he had fever was 03/06/2019 at 10 [address] e[address]. He has worsening leukocytosis today at 26.9. BMP looks his stable with mild hyponatremia at 135, potassium 4.9, creatinine normal 0.8. Patient currently remains on Zosyn. 03/09/2019 Patient NG tube was DC'd yesterday, he was started on a clear diet. No nausea vomiting, his abdominal pain is much better today with pain medication but serrated 3/10, his colostomy back in a Place with dark watery stool. His vitals are stable and he is phnvyzzopc97% on 3 L oxygen. he has spiked a fever of 102.2 yesterday night.Richard catheter was discontinued yesterday and he is able to be. We will check residual urine.WBC is 27.3K,hemoglobin is stable at 11.9.urine cultures pending.infectious disease already evaluated the patient and their input is appreciated. Recommend May need to repeat CAT scan of the abdomen.antibiotics has been adjusted to cefepime and Flagyl 03/10/2019 Patient is doing better today, he is able to tolerate his diet, which is semisolid diet only. His abdominal pain at the surgical site is subsided and is better controlled. No nausea vomiting. Colostomy back in a Place and has dark- colored liquidy stool in it. No breathing problems. No fever. Vitals are stable and his saturating 95% in 3 L. Labs showing WBC start improving down from 27.3 to 25.6K, so CAT scan does not need to be done currently because patient showing improvement clinically and in his lab work as per my discussions with surgical team. However continue with the Antibiotics prescribed by the ID team including cefepime, Flagyl and fluconazole. Urine culture: No growth. No fever since yesterday 03/11/2019 Patient has less pain and surgical site, is still on clear liquid diet with no nausea vomiting, his colostomy is working with watery dark-colored stool. He still have significant leukocytosis of 25,000, patient still on cefepime, Flagyl and fluconazole as per ID team. Discussed the case with the surgical team, are going to keep the patient over the weekend for monitoring. Other than that patient says that he has no problem with urination and his urine is yellow, currently.. 03/12/2019 Patient didn't have appetite so he didn't eat his breakfast This morning, however he has no nausea vomiting and his abdominal pain is minimal as 2/10 in severity. This colostomy bag is still with watery stool.he has persistent leukocytosis. Repeat labs this morning are still pending.patient had some difficulty replacing his IV line, currently his IV line is replaced and staff will provide antibiotics today to which he is agreeable.cefepime, Flagyl and fluconazole.\\ 03/13/2019 patient is lying in his incliner, fully awake and oriented. Not in distress.his abdominal pain is minimal, however colostomy back is with watery dark-colored stool. He is tolerating solid diet with no nausea vomiting.today leukocytosis went up to 30 2.4K.most likely from intra-abdominal source as patient has no urinary orpulmonary symptoms or rash.surgical primary team R ordering CT of the abdomen and pelvis today for further evaluation 03/14/2019 Patient is status post exploratory laparotomy, washout of peritoneal cavity anastomotic leak, lysis of adhesions andby working ileostomy. Patient is currently tolerating oral diet. Otherwise WBC count is trending up. Patient is on broad-spectrum antibiotics as per ID recommendations. Patient's family is requesting to be transferred to tertiary care facility. Transfer is being arranged to [facility] by general surgery. Patient has the Afebrile. 03/15/2019 Patient is currently lying in the bed Denied any worsening abdominal pain. Tolerating oral diet. Ileostomy is functioning. Patient's family wants him to be transferred to different facility. Could not be transferred to [facility] or [facility] to incidence issues. Leukocytosis increased to 36.4 today. Currently on antibiotics in the form ofda ptomycin and meropenem. ID is following. patient denied any nausea or diarrhea. Patient isafebrile. 03/16/2019 Patient states that his abdominal pain is better. Tolerating oral diet which will be advanced. Ileostomy is functioning. Otherwise patient is being continued on antibiotics in the form of daptomycin, meropenem and antifungals. ID is on board. General surgery recommends no other surgical intervention needed. CT abdomen pelvis was done. Leukocytosis is improving. Patient is afebrile. Continued on physical therapy. No complaints of chest pain or worsening shortness of breath. No diarrhea in the ostomy bag. Current medications reviewed. Objective - Vital Signs Vital signs: Vital Signs Temp 98.6 F 03/16/19 19:56 Pulse 99 03/16/19 19:56 Resp 18 03/16/19 19:56 BP 126/73 03/16/19 19:56 Pulse Ox 93 L 03/16/19 19:56 Intake & Output 03/16/19 03/16/19 03/17/19 06:59 18:59 06:59 Intake Total 300 150 Output Total 470 300 0 Balance -170 -300 150 Intake: Intake, IV Titration 100 Amount Meropenem 1 gm In Sodium 100 Chloride 0.9% 100 ml @ 200 mls/hr IVPB Q8HR [facility] Rx#:[id number] Oral 200 150 Output: Drainage 0 Left Lower Abdomen 0 Urine 320 300 Stool 150 Other: Voiding Method Urinal # Voids 2 1 # Bowel Movements 1 - Exam GENERAL: The patient is alert and oriented x3, not in any acute distress. Well developed, well nourished. HEENT: Pupils are round and equally reacting to light. EOMI. No scleral icterus. No conjunctival pallor. Normocephalic, atraumatic. No pharyngeal erythema. No thyromegaly. CARDIOVASCULAR: S1 and S2 present. No murmurs, rubs, or gallops. PULMONARY: Chest is clear to auscultation, no wheezing or crackles. -ABDOMEN: Soft, nontender, nondistended, normoactive bowel sounds. No palpable organomegaly. Right colostomy with semi-formed dark stool in the colostomy bag. Left sided abdominal drain tube is in place. No discharge noted. MUSCULOSKELETAL: No joint swelling or deformity. EXTREMITIES: No cyanosis, clubbing, or pedal edema. NEUROLOGICAL: Gross neurological examination did not reveal any focal deficits. SKIN: No rashes. no petechiae. - Labs CBC & Chem 7: 03/18/19 10:31 03/17/19 06:58 Labs: Abnormal Lab Results - Last 24 Hours (Table) 03/16/19 03/16/19 Range/Units 07:17 07:17 WBC 27.6 H (3.8-10.6) k/uL RBC 3.76 L (4.30-5.90) m/uL Hgb 11.2 L (13.0-17.5) gm/dL Hct 35.2 L (39.0-53.0) % Plt Count 938 H (150-450) k/uL Neutrophils # 22.4 H (1.3-7.7) k/uL Monocytes # 2.0 H (0-1.0) k/uL Carbon Dioxide 32 H (22-30) mmol/L BUN 7 L (9-20) mg/dL Creatinine 0.60 L (0.66-1.25) mg/dL Glucose 100 H (74-99) mg/dL Assessment and Plan Assessment: -Recent history of bowel perforation status post colostomy and splenectomy on 03/07/2019, status post reversal of colostomy on 03/03/2019, however his hospital course is complicated by leak and an anastomosis, is status post second exploratory laparotomy with repair of the leak and diverting right ileostomy. -systemic inflammatory response with fever and leukocytosis. Patient has been afebrile and leukocytosis improving. -Sepsis secondary to above -Mild hematuria, recheck urinalysis and urine culture -Systemic inflammatory response with leukocytosis and fever, possible sepsis. -Chronic obstructive pulmonary disease, not in acute exacerbation -Bilateral atelectasis -Mild hyponatremia -Hyperlipidemia -Nicotine dependence Plan: This is a pleasant 53 years old male who presents with reversal of colostomy, completed by leaking anastomosis status post anastomoses repair. Continue with pain management. change antibiotics as per ID team recommendation. Continue with daptomycin and meropenem. reviewed report of CT of the abdomen and pelvis. Follow-up labs. Labs and medication were reviewed.. Continue same treatment. Continue with symptomatic treatment. Resume home medication. Monitor lytes and vitals. DVT and GI prophylaxis. Further recommendations of the clinical course of the patient DVT prophylaxis: Subcutaneous heparin GI Prophylaxis: Protonix PT/OT: Pending Prognosis is guarded Time with Patient: Greater than 30
--- NOTE | 2019-03-18 16:32 | PN ---
PROGRESS NOTE DATE OF SERVICE: 03/18/2019 REASON FOR FOLLOWUP: Secondary peritonitis, anastomosis leak. INTERVAL HISTORY: The patient is afebrile. He was seen on rounds earlier this morning. The patient has been very upset and has been threatening to leave the hospital and ami because of what happened to him. The patient currently denies having any headache. No chest pain or shortness of breath. Cough and abdominal pain have improved. No nausea, vomiting. No further problem with leakage from his ileostomy bag. PHYSICAL EXAMINATION: Blood pressure 125/78 with a pulse of 68, temperature 97.9. He is 96% on room air. General description is a middle-aged male lying in bed in no distress. RESPIRATORY SYSTEM: Unlabored breathing. Clear to auscultation anteriorly. HEART: S1, S2. Regular rate and rhythm. ABDOMEN: Soft. EXTREMITIES: No edema of the feet. LABS: Hemoglobin is 12 with a white count of 21.5. DIAGNOSTIC IMPRESSION AND PLAN: Patient with secondary peritonitis in this patient who did have an anastomosis leak. No OR cultures. Blood culture negative. The patient's white count finally responded to the meropenem and daptomycin, which will be continued in the outpatient setting in addition to the caspofungin for the antifungal, as the patient's white count responded to the oral Diflucan and there is interaction with some of his medication. Hence fluconazole cannot be used. Antibiotic has been arranged for the patient for 2 weeks. Will plan on repeating a CT at the end of antibiotics to make sure no evidence of any abscess and will do weekly CBC, BMP and a CRP. MMODL / IJN: [id number] / SANTHOSH
[2019-03-18 16:37] VITALS: BP 145/78; PULSE 70; RESP 17; TEMP 98.1
--- NOTE | 2019-04-16 13:46 | P.OP ---
Date of Procedure: 03/03/19 Preoperative Diagnosis: History of perforated colon Postoperative Diagnosis: Extensive adhesions Incisional hernia History of perforated colon Procedure(s) Performed: Exposure laparotomy Lysis of extensive adhesions Reversal of colostomy Repair of incisional hernia Anesthesia: YESENIA Surgeon: Franck Moralez Estimated Blood Loss (ml): 50 Pathology: other (Colon polyp,:) Condition: stable Disposition: PACU Description of Procedure: The patient's placed on the operative table in supine position. He received general anesthesia. He was then placed in dorsal lithotomy position. His abdomen was prepped and draped usual sterile fashion. The patient a previous midline incision and colostomy in the left lower quadrant. The skin was incised in midline and then using cautery subcu tissue divided. The patient was noted to have an incisional hernia. The patient had extensive adhesions. Approximately 30 minutes of operative time used to lyse adhesions and enter the abdominal cavity. The Bookwalter tract placed a wound. The colostomy was then transected the fascial level using the GI stapler. There were significant adhesions in the pelvis. The small bowel lesions were lysed and freed from the pelvis. The rectal stump was identified. The adhesions to the left colon were also lysed. The left colon was mobilized by dividing the white line of Toldt. The patient had a previous colectomy with significant adhesions in the left upper quadrant. These were lysed with sharp dissection. Once the left colon was mobilized there appeared to be enough bowel to perform a [id number] functional end-to-end staple anastomosis using KELECHI and TA staplers. The anastomosis in the proximal and distal colon was performed using the KELECHI and TA staplers in a [id number] functional end-to-end staple vessels. A 3-0 GI silk sutures using a crotch stitch. The abdomen was irrigated there is no bleeding seen. The fascia was closed with looped #1 PDS suture. The previously noted incisional hernia was repaired during fascial closure. Skin was closed mark. Patient top she will was sent to recovery room in stable condition.
--- NOTE | 2019-04-21 06:36 | CDI ---
Documentation Clarification Form Date: 04/21/19 From: Jessa Alvarado Phone: If you have a question about this query, please contact Serena Hewitt, Equipment Records Supervisor at [phone] between 8am and 5pm. Admit Date: 03/03/19 Discharge Date: 02/2019 Patient Name: Yevgeniy Monson Visit Number: [id number] ATTENTION: The Clinical Documentation Specialists (CDI) and [facility] Coding Staff appreciate your assistance in clarifying documentation. Please respond to the clarification below the line at the bottom and electronically sign. The CDI & [facility] Coding staff will review the response and follow-up if needed. Please note: Queries are made part of the Legal Health Record. If you have any questions, please contact the author of this message via ITS. Dear Dr. Renny Ashley, Possible sepsis & sepsis is documented in Dr Mcdonald's PNs 03/08, 03/09, 03/10, 03/11, 03/12 & 03/13; your PNs 03/14, 03/15 & 03/16. Patient developed secondary peritonitis from leak. Pre-op Diagnosis: Anastomotic leak following reversal of colostomy Post-Operative Diagnosis: Anastomotic leak following reversal of colostomy Procedure performed: Exploratory laparotomy, washout of peritoneal cavity, repair of anastomotic leak, diverting ileostomy History/Risk Factors: colostomy, COPD, hyperlipidemia, smoker Clinical Indicators: SIRS w leukocytosis (26.9-32.4), neutrophils (24.5-27.3) and fever (102.4), pulse 104, CRP-253.0 (03/14), Treatment: IV Cefepime, IV Flagyl, IV Vanco, IV Zoysn, IV Eraxis, IV Merrem Consults: ID-peritonitis In order to accurately reflect this patients severity of illness, please clarify if the sepsis is: An expected post-procedural or post-surgical condition An unexpected post-procedural or post-surgical condition related to surgical care (a complication of care) An unexpected post-procedural or post-surgical condition, related to the patients underlying medical comorbidities Other, please specify ____ Unable to determine Unable to determine MTDD
--- NOTE | 2019-05-09 12:30 | P.PN ---
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 However his hospital course was complicated by anastomotic leak and he underwent exploratory laparotomy with repair of the leak with diverting ileostomy on the right side, also status post lysis of adhesions. Today is postop day #1. His pain is better controlled in his abdomen, he has expected postsurgical discomfort/pain. G-tube is in a Place. Vitas looks stable. Labs showing leukocytosis with the SELLING UNDERWRITER 20.5 K, potassium 5.2, sodium 134 and creatinine 1.1. Patient remains on IV fluids, pain medication and also patient is on Zosyn. 03/08/2019 Patient today was complaining of from lower abdominal pain that responded partially to Dilaudid associated with nausea after opioid. His colostomy back have small amount of stool in it. Patient denies chest pain, dyspnea or dizziness however there is pink alert urine in his Richard catheter. With UA showing urine RBC is 27. Other than that patient vitals showing patient is been afebrile since yesterday, last time he had fever was 03/06/2019 at 10 Fahren[address] eit. He has worsening leukocytosis today at 26.9. BMP looks his stable with mild hyponatremia at 135, potassium 4.9, creatinine normal 0.8. Patient currently remains on Zosyn. 03/09/2019 Patient NG tube was DC'd yesterday, he was started on a clear diet. No nausea vomiting, his abdominal pain is much better today with pain medication but serrated 3/10, his colostomy back in a Place with dark watery stool. His vitals are stable and he is % on 3 L oxygen. he has spiked a fever of 102.2 yesterday night.Richard catheter was discontinued yesterday and he is able to be. We will check residual urine.WBC is 27.3K,hemoglobin is stable at 11.9.urine cultures pending.infectious disease already evaluated the patient and their input is appreciated. Recommend May need to repeat CAT scan of the abdomen.antibiotics has been adjusted to cefepime and Flagyl 03/10/2019 Patient is doing better today, he is able to tolerate his diet, which is semisolid diet only. His abdominal pain at the surgical site is subsided and is better controlled. No nausea vomiting. Colostomy back in a Place and has dark- colored liquidy stool in it. No breathing problems. No fever. Vitals are stable and his saturating 95% in 3 L. Labs showing WBC start improving down from 27.3 to 25.6K, so CAT scan does not need to be done currently because patient showing improvement clinically and in his lab work as per my discussions with surgical team. However continue with the Antibiotics prescribed by the ID team including cefepime, Flagyl and fluconazole. Urine culture: No growth. No fever since yesterday 03/11/2019 Patient has less pain and surgical site, is still on clear liquid diet with no nausea vomiting, his colostomy is working with watery dark-colored stool. He still have significant leukocytosis of 25,000, patient still on cefepime, Flagyl and fluconazole as per ID team. Discussed the case with the surgical team, are going to keep the patient over the weekend for monitoring. Other than that patient says that he has no problem with urination and his urine is yellow, currently.. 03/12/2019 Patient didn't have appetite so he didn't eat his breakfast This morning, however he has no nausea vomiting and his abdominal pain is minimal as 2/10 in severity. This colostomy bag is still with watery stool.he has persistent leukocytosis. Repeat labs this morning are still pending.patient had some difficulty replacing his IV line, currently his IV line is replaced and staff will provide antibiotics today to which he is agreeable.cefepime, Flagyl and fluconazole.\\ 03/13/2019 patient is lying in his incliner, fully awake and oriented. Not in distress.his abdominal pain is minimal, however colostomy back is with watery dark-colored stool. He is tolerating solid diet with no nausea vomiting.today leukocytosis went up to 30 2.4K.most likely from intra-abdominal source as patient has no urinary orpulmonary symptoms or rash.surgical primary team R ordering CT of the abdomen and pelvis today for further evaluation 03/14/2019 Patient is status post exploratory laparotomy, washout of peritoneal cavity anastomotic leak, lysis of adhesions andby working ileostomy. Patient is currently tolerating oral diet. Otherwise WBC count is trending up. Patient is on broad-spectrum antibiotics as per ID recommendations. Patient's family is requesting to be transferred to tertiary care facility. Transfer is being arranged to [facility] by general surgery. Patient has the Afebrile. 03/15/2019 Patient is currently lying in the bed Denied any worsening abdominal pain. Tolerating oral diet. Ileostomy is functioning. Patient's family wants him to be transferred to different facility. Could not be transferred to [facility] or [facility] to incidence issues. Leukocytosis increased to 36.4 today. Currently on antibiotics in the form ofda ptomycin and meropenem. ID is following. patient denied any nausea or diarrhea. Patient isafebrile. 03/16/2019 Patient states that his abdominal pain is better. Tolerating oral diet which will be advanced. Ileostomy is functioning. Otherwise patient is being continued on antibiotics in the form of daptomycin, meropenem and antifungals. ID is on board. General surgery recommends no other surgical intervention needed. CT abdomen pelvis was done. Leukocytosis is improving. Patient is afebrile. Continued on physical therapy. No complaints of chest pain or worsening shortness of breath. No diarrhea in the ostomy bag. 03/17/2019 Patient denied any complaints of chest pain or shortness of breath. Abdominal pain is much improved. Pain is tolerable. tolerating diet. Denies nausea or vomiting. WBC 25.2. Patient is Afebrile. infectious disease is following. Continued on antibiotics in the form of daptomycin, meropenem and antifungals. No nausea vomiting or diarrhea. Current medications reviewed. Objective - Vital Signs Vital signs: Vital Signs Temp 99.2 F 03/17/19 20:00 Pulse 76 03/17/19 20:00 Resp 16 03/17/19 20:00 BP 150/85 03/17/19 20:00 Pulse Ox 93 L 03/17/19 20:00 Intake & Output 03/17/19 03/17/19 03/18/19 06:59 18:59 06:59 Intake Total 150 200 Output Total 0 0 Balance 150 200 Intake: IV 200 Lactated Ringers 1,000 ml 200 @ 20 mls/hr IV .Q24H [facility] Rx#:[id number] Oral 150 Output: Drainage 0 0 Left Lower Abdomen 0 0 Other: Voiding Method Urinal Toilet Urinal # Voids 1 1 0 - Exam GENERAL: The patient is alert and oriented x3, not in any acute distress. Well developed, well nourished. HEENT: Pupils are round and equally reacting to light. EOMI. No scleral icterus. No conjunctival pallor. Normocephalic, atraumatic. No pharyngeal erythema. No thyromegaly. CARDIOVASCULAR: S1 and S2 present. No murmurs, rubs, or gallops. PULMONARY: Chest is clear to auscultation, no wheezing or crackles. -ABDOMEN: Soft, nontender, nondistended, normoactive bowel sounds. No palpable organomegaly. Right colostomy with semi-formed dark stool in the colostomy bag. Left sided abdominal drain tube is in place. No discharge noted. MUSCULOSKELETAL: No joint swelling or deformity. EXTREMITIES: No cyanosis, clubbing, or pedal edema. NEUROLOGICAL: Gross neurological examination did not reveal any focal deficits. SKIN: No rashes. no petechiae. - Labs CBC & Chem 7: 03/18/19 10:31 03/17/19 06:58 Labs: Abnormal Lab Results - Last 24 Hours (Table) 03/17/19 03/17/19 Range/Units 06:58 06:58 WBC 25.2 H (3.8-10.6) k/uL RBC 3.81 L (4.30-5.90) m/uL Hgb 11.2 L (13.0-17.5) gm/dL Hct 36.2 L (39.0-53.0) % MCHC 30.9 L (31.0-37.0) g/dL Plt Count 887 H (150-450) k/uL Neutrophils # (Manual) 21.42 H (1.3-7.7) k/uL Monocytes # (Manual) 2.27 H (0-1.0) k/uL BUN 6 L (9-20) mg/dL Creatinine 0.60 L (0.66-1.25) mg/dL Glucose 109 H (74-99) mg/dL C-Reactive Protein 164.5 H (<10.0) mg/L Assessment and Plan Assessment: -Recent history of bowel perforation status post colostomy and splenectomy on 03/07/2019, status post reversal of colostomy on 03/03/2019, however his hospital course is complicated by leak and an anastomosis, is status post second exploratory laparotomy with repair of the leak and diverting right ileostomy. -systemic inflammatory response with fever and leukocytosis. Patient has been afebrile and leukocytosis improving. -Sepsis secondary to above -Mild hematuria, recheck urinalysis and urine culture -Systemic inflammatory response with leukocytosis and fever, possible sepsis. -Chronic obstructive pulmonary disease, not in acute exacerbation -Bilateral atelectasis -Mild hyponatremia -Hyperlipidemia -Nicotine dependence Plan: This is a pleasant 53 years old male who presents with reversal of colostomy, completed by leaking anastomosis status post anastomoses repair. Continue with pain management. change antibiotics as per ID team recommendation. Continue with daptomycin and meropenem. reviewed report of CT of the abdomen and pelvis. Follow-up labs. Labs and medication were reviewed.. Continue same treatment. Continue with symptomatic treatment. Resume home medication. Monitor lytes and vitals. DVT and GI prophylaxis. Further recommendations of the clinical course of the patient DVT prophylaxis: Subcutaneous heparin GI Prophylaxis: Protonix PT/OT: Pending Prognosis is guarded Time with Patient: Greater than 30
--- NOTE | 2019-05-09 12:35 | P.DS ---
Providers Date of admission: 03/03/19 07:50 Expected date of discharge: 03/18/19 Attending physician: Franck Moralez Consults: 03/03/19 11:42 Consult Physician Routine Consulting Provider: Vitor Zimmerman Consult Reason/Comments: Medical management Do you want consulting provider notified?: Yes 03/08/19 08:51 Consult Physician Urgent Consulting Provider: Laura Morin Consult Reason/Comments: Leukocytosis, status post bowel leak Do you want consulting provider notified?: Yes 03/17/19 13:45 Consult Physician Routine Consulting Provider: Godwin Delgado Consult Reason/Comments: possible renal mass Do you want consulting provider notified?: Yes Primary care 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 -systemic inflammatory response with fever and leukocytosis. Patient has been afebrile and leukocytosis improving. -Sepsis secondary to above -Mild hematuria, recheck urinalysis and urine culture -Systemic inflammatory response with leukocytosis and fever, possible sepsis. -Chronic obstructive pulmonary disease, not in acute exacerbation -Bilateral atelectasis -Mild hyponatremia -Hyperlipidemia -Nicotine dependence Hospital course This is a pleasant 53 years old male with past medical history of hyperlipidemia, status post bowel resection with colostomy and splenectomy on 11/2018, secondary to crush injury and resultant perforation in his:, He was admitted on 03/03/2019 for reverse her colostomy on the same day. However his hospital course was complicated by anastomotic leak and he underwent exploratory laparotomy with repair of the leak with diverting ileostomy on the right side, also status post lysis of adhesions. Today is postop day #1. His pain is better controlled in his abdomen, he has expected postsurgical discomfort/pain. G-tube is in a Place. Vitas looks stable. Labs showing leukocytosis with the [employer] 20.5 K, potassium 5.2, sodium 134 and creatinine 1.1. Patient remains on IV fluids, pain medication and also patient is on Zosyn. 03/08/2019 Patient today was complaining of from lower abdominal pain that responded partially to Dilaudid associated with nausea after opioid. His colostomy back have small amount of stool in it. Patient denies chest pain, dyspnea or dizziness however there is pink alert urine in his Richard catheter. With UA showing urine RBC is 27. Other than that patient vitals showing patient is been afebrile since yesterday, last time he had fever was 03/06/2019 at 10 Fahrenheit. He has worsening leukocytosis today at 26.9. BMP looks his stable with mild hyponatremia at 135, potassium 4.9, creatinine normal 0.8. Patient currently remains on Zosyn. 03/09/2019 Patient NG tube was DC'd yesterday, he was started on a clear diet. No nausea vomiting, his abdominal pain is much better today with pain medication but serrated 06/06, his colostomy back in a Place with dark watery stool. His vitals are stable and he is [id number]% on 3 L oxygen. he has spiked a fever of 102.2 yesterday night.Richard catheter was discontinued yesterday and he is able to be. We will check residual urine.WBC is 27.3K,hemoglobin is stable at 11.9.urine cultures pending.infectious disease already evaluated the patient and their input is appreciated. Recommend May need to repeat CAT scan of the abdomen.antibiotics has been adjusted to cefepime and Flagyl 03/10/2019 Patient is doing better today, he is able to tolerate his diet, which is semisolid diet only. His abdominal pain at the surgical site is subsided and is better controlled. No nausea vomiting. Colostomy back in a Place and has dark- colored liquidy stool in it. No breathing problems. No fever. Vitals are stable and his saturating 95% in 3 L. Labs showing WBC start improving down from 27.3 to 25.6K, so CAT scan does not need to be done currently because patient showing improvement clinically and in his lab work as per my discussions with surgical team. However continue with the Antibiotics prescribed by the ID team including cefepime, Flagyl and fluconazole. Urine culture: No growth. No fever since yesterday 03/11/2019 Patient has less pain and surgical site, is still on clear liquid diet with no nausea vomiting, his colostomy is working with watery dark-colored stool. He still have significant leukocytosis of 25,000, patient still on cefepime, Flagyl and fluconazole as per ID team. Discussed the case with the surgical team, are going to keep the patient over the weekend for monitoring. Other than that patient says that he has no problem with urination and his urine is yellow, currently.. 03/12/2019 Patient didn't have appetite so he didn't eat his breakfast This morning, however he has no nausea vomiting and his abdominal pain is minimal as 2/10 in severity. This colostomy bag is still with watery stool.he has persistent leukocytosis. Repeat labs this morning are still pending.patient had some difficulty replacing his IV line, currently his IV line is replaced and staff will provide antibiotics today to which he is agreeable.cefepime, Flagyl and fluconazole.\\ 03/13/2019 patient is lying in his incliner, fully awake and oriented. Not in distress.his abdominal pain is minimal, however colostomy back is with watery dark-colored stool. He is tolerating solid diet with no nausea vomiting.today leukocytosis went up to 30 2.4K.most likely from intra-abdominal source as patient has no urinary orpulmonary symptoms or rash.surgical primary team R ordering CT of the abdomen and pelvis today for further evaluation 03/14/2019 Patient is status post exploratory laparotomy, washout of peritoneal cavity anastomotic leak, lysis of adhesions andby working ileostomy. Patient is currently tolerating oral diet. Otherwise WBC count is trending up. Patient is on broad-spectrum antibiotics as per ID recommendations. Patient's family is requesting to be transferred to tertiary care facility. Transfer is being arranged to [facility] by general surgery. Patient has the Afebrile. 03/15/2019 Patient is currently lying in the bed Denied any worsening abdominal pain. Tolerating oral diet. Ileostomy is functioning. Patient's family wants him to be transferred to different facility. Could not be [facility] to [facility] issues. Leukocytosis increased to 36.4 today. Currently on antibiotics in the form ofdaptomycin and meropenem. ID is following. patient denied any nausea or diarrhea. Patient isafebrile. 03/16/2019 Patient states that his abdominal pain is better. Tolerating oral diet which will be advanced. Ileostomy is functioning. Otherwise patient is being erika nued on antibiotics in the form of daptomycin, meropenem and antifungals. ID is on board. General surgery recommends no other surgical intervention needed. CT abdomen pelvis was done. Leukocytosis is improving. Patient is afebrile. Continued on physical therapy. No complaints of chest pain or worsening shortness of breath. No diarrhea in the ostomy bag. 03/17/2019 Patient denied any complaints of chest pain or shortness of breath. Abdominal pain is much improved. Pain is tolerable. tolerating diet. Denies nausea or vomiting. WBC 25.2. Patient is Afebrile. infectious disease is following. Continued on antibiotics in the form of daptomycin, meropenem and antifungals. No nausea vomiting or diarrhea. 03/18/2019 Patient denied any complaints of abdominal pain today. Tolerating oral diet and ostomy is functioning. Patient is being continued on IV antibiotics which will be continued via PICC line as per ID recommendations. Leukocytosis is improving. Patient has been afebrile. Able to ambulate in the hallway. Is being discharged home today. Home with home healthcare and IV antibiotics. Discussed with the patient case manager and social work and discharge planning is in place. Physical examination GENERAL: The patient is alert and oriented x3, not in any acute distress. Well developed, well nourished. HEENT: Pupils are round and equally reacting to light. EOMI. No scleral icterus. No conjunctival pallor. Normocephalic, atraumatic. No pharyngeal erythema. No thyromegaly. CARDIOVASCULAR: S1 and S2 present. No murmurs, rubs, or gallops. PULMONARY: Chest is clear to auscultation, no wheezing or crackles. -ABDOMEN: Soft, nontender, nondistended, normoactive bowel sounds. No palpable organomegaly. Right colostomy with formed dark stool in the colostomy bag. Left sided abdominal drain tube is in place. No discharge noted. MUSCULOSKELETAL: No joint swelling or deformity. EXTREMITIES: No cyanosis, clubbing, or pedal edema. NEUROLOGICAL: Gross neurological examination did not reveal any focal deficits. SKIN: No rashes. no petechiae. Vital Signs Temp 97.9 F 03/18/19 07:20 Pulse 90 03/18/19 15:42 Resp 16 03/18/19 07:20 BP 125/78 03/18/19 07:20 Pulse Ox 96 03/18/19 07:20 Intake & Output 03/17/19 03/18/19 03/18/19 18:59 06:59 18:59 Intake Total 200 1360 240 Output Total 0 400 0 Balance 200 960 240 Weight 109.769 kg Intake: IV 200 Lactated Ringers 1,000 ml 200 @ 20 mls/hr IV .Q24H CHELITA Rx#:[id number] Intake, IV Titration 400 Amount Dextrose 5%-0.9% NaCl 1, 300 000 ml @ 50 mls/hr IV . Q20H CHELITA Rx#:[id number] Meropenem 1 gm In Sodium 100 Chloride 0.9% 100 ml @ 200 mls/hr IVPB Q8HR CHELITA Rx#:[id number] Oral 960 240 Output: Drainage 0 0 0 Left Lower Abdomen 0 0 0 Urine 400 Other: Voiding Method Toilet Toilet Urinal Urinal # Voids 1 2 300 - Labs CBC & Chem 7: 03/18/19 10:31 03/17/19 06:58 Labs: Abnormal Lab Results - Last 24 Hours (Table) 03/18/19 Range/Units 10:31 WBC 21.5 H (3.8-10.6) k/uL RBC 3.97 L (4.30-5.90) m/uL Hgb 12.0 L (13.0-17.5) gm/dL Hct 37.6 L (39.0-53.0) % Plt Count 1077 H* (150-450) k/uL Neutrophils # (Manual) 18.28 H (1.3-7.7) k/uL Monocytes # (Manual) 1.72 H (0-1.0) k/uL Total time taken greater than 35 minutes including 18 minutes for counseling and coordination of care. Health Concerns: Abdominal incision care: Last Pouching ileostomy System Date: 03.15.2019 Supplies for home for Ileostomy provided by the Hospital: Convate one piece cut to fit with filter #[id number] (from the [facility]) No sting prep pads (10) Osotmy powder (1) Yevgeniy to empty the pouching system when 1/3 to 1/2 full Entire changing of pouching system every 3-5 days Yevgeniy will also be receiving supplies from [facility] for home in 3-6 days after discharge as requested Home IV antibiotics: 1. [facility] will deliver supplies to patient's home tonight or tomorrow morning. They will call before delivery. 2. [facility] will come for first visit on 03/19/19 to initiate IV antibiotic therapy and teaching. Patient Condition at Discharge: Fair Plan - Discharge Summary Discharge Rx Participant: Yes New Discharge Prescriptions: New DAPTOmycin [Daptomycin] 700 mg IV DAILY #14 vial Fluconazole [Diflucan] 200 mg PO DAILY #14 tab Ertapenem [INVanz] 1 gm IVPB Q24H #14 bag HYDROcodone/APAP 10-325MG [[place] 10-325] 1 each PO Q6HR PRN #12 tab PRN Reason: Pain Continue hydrOXYzine HCL [Atarax] 50 mg PO HS PRN PRN Reason: sleep Gabapentin [Neurontin] 600 mg PO HS Atorvastatin [Lipitor] 40 mg PO HS Discharge Medication List Atorvastatin [Lipitor] 40 mg PO HS 01/28/19 [History] Gabapentin [Neurontin] 600 mg PO HS 01/28/19 [History] hydrOXYzine HCL [Atarax] 50 mg PO HS PRN 01/28/19 [History] DAPTOmycin [Daptomycin] 700 mg IV DAILY #14 vial 03/18/19 [Rx] Ertapenem [INVanz] 1 gm IVPB Q24H #14 bag 03/18/19 [Rx] Fluconazole [Diflucan] 200 mg PO DAILY #14 tab 03/18/19 [Rx] HYDROcodone/APAP 10-325MG [[place] 10-325] 1 each PO Q6HR PRN #12 tab 03/18/19 [Rx] Follow up Appointment(s)/Referral(s): Godwin Delgado MD [STAFF PHYSICIAN] - 1 Week (Office Closed at time of discharge please call ThursdayMarch 21 to set up a follow up appointment) [facility], [NON-STAFF] - [facility],Infusion [NON-STAFF] - Laura Morin MD [STAFF PHYSICIAN] - 1 Week Ambulatory/Diagnostic Orders: Basic Metabolic Panel [LAB.AMB] Location: None Selected C Reactive Protein [LAB.AMB] Location: None Selected Complete Blood Count w/diff [LAB.AMB] Location: None Selected Patient Instructions/Handouts: Ileostomy Care (GEN), Ileostomy Diet (GEN), Peripherally Inserted Central Catheters and Midline Catheters (DC) Discharge Disposition: HOME WITH HOME HEALTH SERVICES
== END 2019-03-18 18:21 | disposition home health service (06) | DRG 329 ==
LOC: 2ORMAIN 03-03 07:50 → 4SSUR 03-03 13:57
PROVIDERS: ADMIT Surgery; ATTEND Surgery
PROC: 0DNG0ZZ Release Left Large Intestine, Open Approach (ICD-10-PCS; principal; 2019-03-03 09:15)
PROC: 0DN80ZZ Release Small Intestine, Open Approach (ICD-10-PCS; principal; 2019-03-03 09:15)
PROC: 0DBN0ZZ Excision of Sigmoid Colon, Open Approach (ICD-10-PCS; principal; 2019-03-03 09:15)
PROC: 0DNW0ZZ Release Peritoneum, Open Approach (ICD-10-PCS; principal; 2019-03-03 09:15)
PROC: 0DQG0ZZ Repair Left Large Intestine, Open Approach (ICD-10-PCS; 2019-03-06)
PROC: 0WQF0ZZ Repair Abdominal Wall, Open Approach (ICD-10-PCS; 2019-03-06)
PROC: 0D1B0Z4 Bypass Ileum to Cutaneous, Open Approach (ICD-10-PCS; 2019-03-06)
PROC: 3E1M38Z Irrigation of Peritoneal Cavity using Irrigating Substance, Percutaneous Approach (ICD-10-PCS; 2019-03-06)
PROC: 0DN80ZZ Release Small Intestine, Open Approach (ICD-10-PCS; 2019-03-06)
PROC: 0D9670Z Drainage of Stomach with Drainage Device, Via Natural or Artificial Opening (ICD-10-PCS; 2019-03-06)
PROC: 05HF33Z Insertion of Infusion Device into Left Cephalic Vein, Percutaneous Approach (ICD-10-PCS; 2019-03-18)
DX: Z43.3 Encounter for attention to colostomy (principal); K65.9 Peritonitis, unspecified; A41.9 Sepsis, unspecified organism; E87.1 Hypo-osmolality and hyponatremia; J98.11 Atelectasis; K91.89 Other postprocedural complications and disorders of digestive system; K66.0 Peritoneal adhesions (postprocedural) (postinfection); K43.2 Incisional hernia without obstruction or gangrene; J44.9 Chronic obstructive pulmonary disease, unspecified; E78.5 Hyperlipidemia, unspecified; R31.9 Hematuria, unspecified; N28.89 Other specified disorders of kidney and ureter; F17.210 Nicotine dependence, cigarettes, uncomplicated; Z71.6 Tobacco abuse counseling; Z79.899 Other long term (current) drug therapy; Z87.828 Personal history of other (healed) physical injury and trauma; Z98.890 Other specified postprocedural states; Z90.81 Acquired absence of spleen; Z90.49 Acquired absence of other specified parts of digestive tract; Z80.0 Family history of malignant neoplasm of digestive organs; Y83.2 Surgical operation with anastomosis, bypass or graft as the cause of abnormal reaction of the patient, or of later complication, without mention of misadventure at the time of the procedure; Y92.230 Patient room in hospital as the place of occurrence of the external cause
CPT/HCPCS: 36410; 71045; 71046; 74018; 74177; 76937; 80048; 80051; 80053; 80202; 81001; 85025; 86140; 86850; 86900; 86901; 87040; 87086; 88304; 88305; 88307; 94640; 94760

== ENCOUNTER 2019-03-02 07:36 | Day surgery (SDC) | payer OTHER ==
[2019-02-28 09:40] VITALS: BMI 34.2
[~2019-03-02 07:36] MED LIST: LACTATED RINGERS 1,000 ML IV SCH; LIDOCAINE 1% 20 ML VIAL (10MG/ML) FOR IV START INTRADERMA PRN
[2019-03-02 08:06] VITALS: RESP 16; TEMP 97.4
--- NOTE | 2019-03-02 08:07 | P.GSHP ---
History of Present Illness H&P Date: 03/02/19 Chief Complaint: History of traumatic perforation: This is a 53-year-old male who previously underwent Leidy procedure due to a traumatic perforation of his sigmoid colon. Patient was pinned between a skin stapler a truck and had atraumatic rupture of his colon. The patient underwent previous Leidy procedure. He presents today for colonoscopy. Patient will be having reversal colostomy performing near future. Past Medical History Past Medical History: Hyperlipidemia Additional Past Medical History / Comment(s): crush injury to abdomen 2 months ago resulting in "ruptured colon" per pt., had surgery & was in ICU @[facility] History of Any Multi-Drug Resistant Organisms: None Reported Past Surgical History: Bowel Resection, Orthopedic Surgery Additional Past Surgical History / Comment(s): HAND SURGERY, ORIF right ankle, bowel resection w/colostomy & splenectomy 2018 Past Anesthesia/Blood Transfusion Reactions: No Reported Reaction Smoking Status: Current every day smoker - Past Family History Brother(s) Family Medical History: Cancer Additional Family Medical History / Comment(s): colon Medications and Allergies Home Medications Medication Instructions Recorded Confirmed Type Atorvastatin [Lipitor] 40 mg PO HS 01/28/19 03/01/19 History Gabapentin [Neurontin] 600 mg PO HS 01/28/19 03/01/19 History hydrOXYzine HCL [Atarax] 50 mg PO HS PRN 01/28/19 03/01/19 History Allergies Allergy/AdvReac Type Severity Reaction Status Date / Time No Known Allergies Allergy Verified 03/02/19 07:54 Surgical - Exam - General well developed, well nourished, moderate distress - Eyes PERRL - ENT normal pinna - Neck no masses - Respiratory normal expansion - Cardiovascular Rhythm: regular - Abdomen Colostomy left lower quadrant Abdomen: soft, non tender Assessment and Plan Assessment: History of traumatic perforation of colon. Patient will undergo colonoscopy today.
[2019-03-02] MEDS ORDERED: PROPOFOL 10 MG/ML 20 ML VIAL IV ONE (08:52)
--- NOTE | 2019-03-02 09:15 | P.OP ---
Date of Procedure: 03/02/19 Preoperative Diagnosis: History of colon polyps History of colon perforation Postoperative Diagnosis: Diverticulosis Transverse colon polyp Procedure(s) Performed: colonoscopy Anesthesia: MAC Surgeon: Franck Moralez Pathology: other (Transverse colon polyp) Condition: stable Disposition: PACU Description of Procedure: The patient's placed on the endoscopy table in the lateral position. He received IV sedation. Digital rectal exam was performed which revealed no abnormalities. Possible colonoscope was then placed patient anus passed throughout the colon. The colon stump measured approximately 25 cm. There agustina polyps or tumors in the rectosigmoid area. The scope was withdrawn Patient reveals back. The colonoscope was then placed through the colostomy. The clot scope was then placed throughout the entire colon. The ileocecal valve sutures. The cecum appeared normal. The ascending colon appeared normal. In the transverse colon there was scattered diverticula. There was a polyp seen this removed with the cold forcep. Scope was brought back to the descending colon and this was examined. There is evidence of diverticular changes. Scope was withdrawn from patient.
[2019-03-02 09:22] VITALS: BP 109/65; PULSE 57
== END 2019-03-02 10:20 | disposition home or self-care (01) ==
LOC: ORWHC2ENDO 07:36
PROVIDERS: ATTEND Surgery
DX: Z12.11 Encounter for screening for malignant neoplasm of colon (principal); D12.3 Benign neoplasm of transverse colon; K57.30 Diverticulosis of large intestine without perforation or abscess without bleeding; E78.5 Hyperlipidemia, unspecified; F17.200 Nicotine dependence, unspecified, uncomplicated; Z86.010 Personal history of colon polyps; Z98.0 Intestinal bypass and anastomosis status; Z93.3 Colostomy status; Z87.19 Personal history of other diseases of the digestive system; Z87.828 Personal history of other (healed) physical injury and trauma; Z98.890 Other specified postprocedural states; Z90.49 Acquired absence of other specified parts of digestive tract; Z90.81 Acquired absence of spleen; Z79.899 Other long term (current) drug therapy
CPT/HCPCS: 93005; 88305; 44389; J2704

== ENCOUNTER → 2019-04-01 | Day surgery (SDC) | payer OTHER | LOC: CATHCVL 13:17 | PROVIDERS: ATTEND Internal Medicine Infectious Disease | DX: K65.9 Peritonitis, unspecified (principal); Z53.8 Procedure and treatment not carried out for other reasons ==

== ENCOUNTER → 2019-04-02 | Outpatient (CLI) | payer OTHER ==
--- NOTE | 2019-04-02 22:18 | CT ---
EXAMINATION TYPE: CT abdomen pelvis w con DATE OF EXAM: 04/02/2019 COMPARISON: HISTORY: Abdominal wall abscess CT DLP: 1578.6 mGycm Automated exposure control for dose reduction was used. CONTRAST: Performed with IV Contrast, patient injected with 100 mL of Isovue 300. There is oral contrast. Multiple axial sections were obtained from the diaphragm to the floor the pelvis with oral and IV con trast. There is small left pleural effusion. There is mild atelectasis left lung base. Heart appears normal. Liver appears normal. Gallbladder appears normal. Bile ducts are not dilated. Spleen is absent. There is no evidence of pancreatic mass. There is no adrenal mass. Kidneys show satisfactory contrast opacification. There is decreased contra st in the renal collecting system on the delayed images. There are bilateral renal cortical cysts darryl t measure up to 3.5 cm. There is no hydronephrosis. There is ileostomy in the right mid abdomen. Ther e is no sign of a bowel obstruction. Large bowel is mostly empty. There are surgical clips in the lef t mid abdomen. There is drainage catheter in the pelvis. There is midline incision with mild subcutan eous fluid at the anterior mid abdominal wall that measures up to 2.3 cm. Bladder distends smoothly. There is no evidence of a pelvic mass. There is no free fluid in the abdomen. There is no sign of mes enteric edema. IMPRESSION: Compared to last exam there is significant clearing of the pleural fluid and atelectasis at the lung bases. There is clearing of the fluid in the paracolic gutters. No evidence of intra-abdominal absces s. Postsurgical changes with fluid at the anterior midline incision could be small hematoma or seroma . Fluid in the paracolic gutters is essentially cleared compared to old exam.
== END | disposition home or self-care (01) ==
LOC: RADCTMAIN 11:52
PROVIDERS: ATTEND Internal Medicine Infectious Disease
DX: L02.211 Cutaneous abscess of abdominal wall (principal); Z98.890 Other specified postprocedural states
CPT/HCPCS: 74177; Q9967 ×2